=== PATIENT | male | born 1960 | race Hispanic/Latino ===

== ENCOUNTER 2020-08-08 20:08 | Inpatient (IN) | payer SELFPAY ==
--- OUTSIDE RECORDS SUMMARY | 2020-08-08 20:11 | XMS REPORT | Continuity of Care Document ---
:1960 Author Organization [facility] t Address [address] [place] [address] Care Team Providers Name Role Phone Russell Ha MD Attending Clinician Doctor Unassigned, Name Attending Clinician Unavailable Heather Vo Attending Clinician Problems This patient has no known problems. Allergies, Adverse Reactions, Alerts This patient has no known allergies or adverse reactions. Medications This patient has no known medications. Procedures This patient has no known procedures. Encounters Start End Encounter Admission Attending Care Care Encounter Source Date/Time Date/Time Type Type Clinicians Facility Department ID 2020-07-09 2020-07-09 [facility] [id number] 04:50:00 06:09:00 Hussain Swanson [id number] [place] [id number] [place] [id number] 2020-05-18 2020-05-18 Orders Doctor CARDOZA [id number] 00:00:00 00:00:00 Only UnassignedGINGER [id number] [place] [facility] [id number] 2020-03-03 2020-03-03 Orders Doctor CARDOZA [id number] 00:00:00 00:00:00 Only Unassigned, GINGER [id number] [place] [facility] [id number] 2020-01-20 2020-01-20 Emergency Javier, K RUST [id number] 10:35:00 12:49:00 Heather Swanson [id number] [place] [id number] [place] [id number] Results This patient has no known results.
[2020-08-08 20:34] LABS: Absolute Lymphocytes (CBC) 3.9 K/uL (0.7-4.9); Hematocrit 54.5 % (39.6-49.0); Lymphocytes % 39.7 % (15.3-44.8); RBC Red Blood Cell Count 5.58 M/uL (4.33-5.43)
[2020-08-08 20:35] LABS: Protime INR 0.84
[2020-08-08 20:53] LABS: ALT/SGPT 67 U/L (12-78); AST/SGOT 91 U/L (15-37); Albumin 3.5 g/dL (3.4-5.0); Alkaline Phosphatase 79 U/L (45-117); BUN Blood Urea Nitrogen 10 mg/dL (7-18); Bicarbonate 19 mmol/L (21-32); Bilirubin Direct 0.1 mg/dL (0-0.2); Bilirubin Total 0.4 mg/dL (0.2-1.0); Glucose Level 113 mg/dL (74-106); NT PRO-BNP 58 pg/mL (<125); Potassium 3.5 mmol/L (3.5-5.1); Protein, Total 8.2 g/dL (6.4-8.2); Sodium Level 137 mmol/L (136-145); Troponin (Emerg Dept Use Only) < 0.02 ng/mL (0.0-0.045)
--- NOTE | 2020-08-08 20:57 | RAD REPORT ---
EXAM DESCRIPTION: RAD - Chest Single View - 08/08/2020 8:47 pm CLINICAL HISTORY: SOB Chest pain. COMPARISON: CHEST SINGLE VIEW dated 11/29/2014; CHEST SINGLE VIEW dated 11/27/2014; CHEST SINGLE VIEW dated 01/30/2014; ABDOMEN 1 VIEW KUB dated 08/14/2012 FINDINGS: Portable technique limits examination quality. Emphysematous changes are present throughout the lungs. No definitive focal infiltrate seen. The hear t is normal in size. No acute fracture is evident.
[2020-08-08] MEDS ORDERED: METHYLPREDNISOLONE 125 MG INJ ONE (21:07)
[2020-08-08] MEDS ORDERED: LEVALBUTEROL 1.25 MG/3 ML NEB ONE ×2 (21:07→22:37)
[2020-08-08] MEDS ORDERED: IPRATROPIUM BROM 0.5MG/2.5ML ONE (21:07)
[2020-08-08] MEDS ORDERED: FAMOTIDINE 20 MG/2 ML VIAL IV ONE (21:08)
[2020-08-08] MEDS ORDERED: PIPER/TAZO/NS 3.375gm 3.375 GM/100 ML BAG ONE (21:08)
[2020-08-08] MEDS ORDERED: NA CHLORIDE 0.9% 1,000 ML ONE (21:11)
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
[2020-08-08] MEDS ORDERED: ENOXAPARIN 60 MG/0.6 ML SQ ONE (22:38)
[2020-08-08 23:33] LABS: Arterial Blood Carboxyhemoglob 2.8 % (0-1.5); Blood Gas Oxyhemoglobin 94.5 % (94-97)
--- NOTE | 2020-08-08 23:51 | P.HP ---
Certification for Inpatient Patient admitted to: Inpatient With expected LOS: >2 Midnights Patient will require the following post-hospital care: None Practitioner: I am a practitioner with admitting privileges, knowledge of patient current condition, hospital course, and medical plan of care. Services: Services provided to patient in accordance with Admission requirements found in Title 42 Section 412.3 of the Code of Federal Regulations <Mihai Washington - Last Filed: 08/08/20 23:51> Patient admitted to: Inpatient <Erick Garcia - Last Filed: 08/09/20 09:17> Patient History Date of Service: 08/08/20 Primary Care Provider: None Reason for admission: Dyspnea/hypoxia History of Present Illness: 59-year-old male with history of hypertension, gout, hepatitis-C, reported thyroid cancer/mass presents emergency department for shortness of breath. Patient reports he has been feeling short of breath over the course of the last 2 months but significantly worse since yesterday. Patient was found to be hypoxic in the low 80s on room air requiring significant amount of oxygen. Upon initial exam ED provider reported patient was not moving much air all with some mild expiratory wheezing noted. Chest x-ray significant for emphysematous changes throughout the lungs, CT PE protocol negative for central pulmonary embolism, cannot rule out small peripheral pulmonary embolism. CT abdomen pelvis negative for any acute findings. Patient reports history of lung mass, patient is poor historian, no mass noted on CT scan. Lab significant for white blood cell count 9.8, hemoglobin hematocrit mildly elevated suspect hemoconcentration renal function within normal limits, lactic acid 4.1, patient does not appear septic. ABG shows some hyperventilation. ED provider wishes to admit for suspected COPD with exacerbation. 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 -: brain hemorrhage -: heart murmur -: appendectomy -: R ear reconstruction -: Right inguinal hernia sx Psychosocial/ Personal History: Patient unemployed, lives alone - Family History Father -: Diabetes - Social History Smoking Status: Former smoker Counseled patient to stop smoking for: less than 10 minutes Alcohol use: Yes CD- Drugs: Yes Caffeine use: No Place of Residence: Home <Mihai Washington - Last Filed: 08/08/20 23:51> Date of Service: 08/09/20 Home medications list reviewed: Yes <Erick Garcia - Last Filed: 08/09/20 09:17> Allergies No Known Allergies Allergy (Unverified 08/09/20 03:59) Home Medications: Allopurinol 300 mg PO DAILY 01/30/14 Esomeprazole Mag Trihydrate [Nexium] 40 mg PO DAILY 01/30/14 Amlodipine [Norvasc*] 10 mg PO DAILY 02/19/14 Review of Systems 10-point ROS is otherwise unremarkable Respiratory: Cough, Dry, Shortness of Breath <Mihai Washington - Last Filed: 08/08/20 23:51> Physical Examination - Physical Exam General: Alert, In no apparent distress HEENT: Atraumatic, PERRLA, Mucous membr. moist/pink Neck: Supple, 2+ carotid pulse no bruit, No LAD Respiratory: Normal air movement, Diminished (Bilaterally), Crackles/rales (Left lower lobe), Other (Tachypneic, dyspnea) Cardiovascular: Regular rate/rhythm, Normal S1 S2 Capillary refill: <2 Seconds Gastrointestinal: Normal bowel sounds, No tenderness Musculoskeletal: No tenderness Integumentary: No rashes Neurological: Normal speech, Normal strength at 5/5 x4 extr, Normal tone, Normal affect - Studies Laboratory Data (last 24 hrs) 08/08/20 20:20: PT 9.6, INR 0.84 08/08/20 20:20: WBC 9.80, Hgb 18.3 H, Hct 54.5 H, Plt Count 261 08/08/20 20:20: Sodium 137, Potassium 3.5, BUN 10, Creatinine 0.84, Glucose 113 H, Magnesium 2.0, Total Bilirubin 0.4, AST 91 H, ALT 67, Alkaline Phosphatase 79 <Mihai Washington - Last Filed: 08/08/20 23:51> - Studies Laboratory Data (last 24 hrs) 08/08/20 20:20: PT 9.6, INR 0.84 08/08/20 20:20: WBC 9.80, Hgb 18.3 H, Hct 54.5 H, Plt Count 261 08/08/20 20:20: Sodium 137, Potassium 3.5, BUN 10, Creatinine 0.84, Glucose 113 H, Magnesium 2.0, Total Bilirubin 0.4, AST 91 H, ALT 67, Alkaline Phosphatase 79 <Erick Garcia - Last Filed: 08/09/20 09:17> Assessment and Plan - Plan Assessment Acute hypoxic respiratory failure likely new onset COPD with exacerbation Hypertension Gout History of hepatitis-C Thyroid mass Plan Acute hypoxic respiratory failure likely new onset COPD with exacerbation: Chest x-ray suggests emphysema changes throughout, continue with IV steroids, scheduled nebulizer treatments, IV Levaquin. Pulmonology consult in place. Titrate saturations greater than 93%. Daily room air saturations. DVT prophylaxis Lovenox 40 mg subcutaneous once daily. Appreciate further input from pulmonology. Hypertension: Obtain and continue home medications as appropriate.May need some adjustment. Gout: Obtain and continue home meds History of hepatitis-C: Appears stable this time. Thyroid mass: Patient with known thyroid mass, reports that he had a biopsy done was told his cancers, elected to have no treatment. Appears stable at this time. Discharge Plan: Home Plan to discharge in: 48 Hours - Advance Directives Does patient have a Living Will: No Does patient have a Durable POA for Healthcare: Yes - Code Status/Comfort Care Code Status Assessed: Yes (Full code) Critical Care: No Time Spent Managing Pts Care (In Minutes): 55 <Mihai Washington - Last Filed: 08/08/20 23:51> - Plan Case discussed in detail with nurse practitioner. Agree with plan of care. Please see notes for details. <Erick Garcia - Last Filed: 08/09/20 09:17>
[2020-08-08 23:59] LABS: Ferritin 32.4 ng/mL (26-388)
[2020-08-09] LABS: C-Reactive Protein < 2.90 mg/L (<3.00)
[2020-08-09] MEDS ORDERED: ACETAMINOPHEN 500 MG TAB PO PRN (00:24)
[2020-08-09] MEDS ORDERED: ONDANSETRON 4 MG/2 ML VIAL IV PRN (00:24)
[2020-08-09] MEDS ORDERED: NA CHLORIDE 0.9% 1,000 ML IV ONE (00:24)
[2020-08-09] MEDS ORDERED: NA CHLORIDE 0.9% 1,000 ML IV SCH (00:24)
[2020-08-09] MEDS ORDERED: NA CHLORIDE 0.9% 1,000 ML ONE (00:28)
[2020-08-09] MEDS: METHYLPREDNISOLONE 125 MG INJ IV SCH ×3 (01:18→16:12)
[2020-08-09 01:34] VITALS: BMI 18.3
[2020-08-09] MEDS: ALBUTEROL 2.5 MG/3 ML NEB SOL NEB SCH ×2 (01:50→08:15)
[2020-08-09] MEDS: IPRATROPIUM BROM 0.5MG/2.5ML NEB SCH ×2 (01:50→08:15)
[2020-08-09] MEDS ORDERED: Levofloxacin500mg IV 500 MG/100 ML BAG IV SCH (05:00)
[2020-08-09 05:55] LABS: Absolute Lymphocytes (CBC) 0.2 K/uL (0.7-4.9); Basophils % 0.2 % (0-1.3); Hematocrit 50.2 % (39.6-49.0); Lymphocytes % 2.5 % (15.3-44.8); MPV 8.1 fL (7.6-11.3); RBC Red Blood Cell Count 5.05 M/uL (4.33-5.43)
[2020-08-09 06:19] LABS: Magnesium 1.6 mg/dL (1.8-2.4); Thyroid Stimulating Hormone 0.277 uIU/mL (0.360-3.740); Troponin I 0.03 ng/mL (0.0-0.045)
--- NOTE | 2020-08-09 06:22 | EKG ---
Test Date: 2020-08-08 Test Time: 20:11:20 Alterations Sewer: RR MEASUREMENT RESULTS: Intervals: Rate: 120 LA: 148 QRSD: 86 QT: 322 QTc: 455 [place]: P: 75 LA: 148 QRS: 62 T: 60 INTERPRETIVE STATEMENTS: Sinus tachycardia Septal infarct, age undetermined Abnormal ECG Compared to ECG 10/25/2016 23:45:00 Myocardial infarct finding now present Sinus rhythm no longer present Electronically Signed On 08-09-20 06:21:11 CIVIL DEFENSE DIRECTOR by Luís Gross
[2020-08-09 06:39] LABS: White Blood Cell Scan OK (OK)
[2020-08-09 06:40] LABS: Blood Morphology Comment NOT SEEN (NOT SEEN); Platelet Estimate ADEQ
[2020-08-09] MEDS: ENOXAPARIN 40 MG/0.4 ML SQ SCH (07:50)
[2020-08-09] MEDS ORDERED: MAGNESIUM SULFATE 1 gm IVPB 1 GM/100 ML BAG IV ONE (09:00)
[2020-08-09] MEDS: DULERA 100/5 (MOMETASONE/FORMOTEROL) INHALER IH SCH ×2 (09:00→21:12)
--- NOTE | 2020-08-09 09:15 | P.PN ---
Subjective Date of Service: 08/09/20 Primary Care Provider: None Chief Complaint: Dyspnea/hypoxia Subjective: Improving (Patient reports improvement with treatment.) Physical Examination - Vital Signs Temperature: 98.7 F Blood Pressure: 143/77 Pulse: 79 Respirations: 18 Pulse Ox (%): 98 - Studies Laboratory Data (last 24 hrs) 08/08/20 20:20: PT 9.6, INR 0.84 08/08/20 20:20: WBC 9.80, Hgb 18.3 H, Hct 54.5 H, Plt Count 261 08/08/20 20:20: Sodium 137, Potassium 3.5, BUN 10, Creatinine 0.84, Glucose 113 H, Magnesium 2.0, Total Bilirubin 0.4, AST 91 H, ALT 67, Alkaline Phosphatase 79 Assessment & Plan Discharge Plan: Home Plan to discharge in: 48 Hours - Code Status/Comfort Care Code Status Assessed: Yes (Patient is do not resuscitate.) Physician Review Additional Text: Physical exam: Patient alert, cooperative. No acute distress noted. Heart: Regular rate and rhythm Lungs: Wheezing bilateral Abdomen: Soft nontender nondistended Neck: Slight enlargement to the left thyroid region. Extremities: Good range of motion to the upper lower extremities Impression: Dyspnea secondary to Acute hypoxic respiratory failure likely related to COPD exacerbation Hypertension Gout History of hepatitis-C Thyroid mass with possible underlying metastatic disease Plan: Dyspnea secondary to Acute hypoxic respiratory failure likely related to COPD exacerbation: Chest x-ray shows emphysematous changes. Likely underlying COPD with exacerbation. Continue IV steroids. Continue Brovana. Patient is homeless. Discontinue IV fluids. Pulmonology consulted. Patient will need to transition to affordable medication at discharge. Respiratory to continue to wean off oxygen. Advanced care directives address in detail. Patient wishes to be do not resuscitate. Patient also with history of thyroid mass with possible underlying cancer. This has been addressed in the past. Patient wishes to have no further evaluation or treatment. Anticipate improvement over the next 48 hr. Hypertension: Continue with medication. Will monitor and adjust appropriately. Gout: Obtain and restart home medication. History of hepatitis-C: Overall stable.. Thyroid mass: Patient with known thyroid mass, reports that he had a biopsy done and was told that he had cancer. Patient also reports a history of lung and kidney cancer. Will need to review CT scans. Patient wishes to have no further workup for this. He does not want any further treatment in the future. Time Spent Managing Pts Care (In Minutes): 55
[2020-08-09] MEDS ORDERED: ALBUTEROL 2.5 MG/3 ML NEB SOL NEB PRN (09:19)
[2020-08-09] MEDS ORDERED: IPRATROPIUM BROM 0.5MG/2.5ML NEB PRN (09:19)
--- NOTE | 2020-08-09 10:30 | RAD REPORT ---
EXAM DESCRIPTION: CT - Abdomen Pelvis W Contrast - 08/09/2020 6:56 am CLINICAL HISTORY: 59 years Male CHEST, ABD PAIN TECHNIQUE: Contiguous axial images obtained through the chest were obtained from the thoracic inlet to the level of the upper abdomen during the pulmonary arterial phase of intravenous contrast adminis tration. Coronal and sagittal reformatted and MIP images provided. Contiguous axial images obtained through the abdomen and pelvis following intravenous contrast admini stration. Coronal and sagittal reformatted images provided. This CT exam was performed according to our departmental dose-optimization program, which includes on e or more of the following dose reduction techniques: automated exposure control, adjustment of the m A and/or kV according to patient size, and/or use of iterative reconstruction technique. COMPARISON: No prior exams provided for comparison. FINDINGS: There is no central or upper lung pulmonary embolus. Small lower lung pulmonary emboli can not be completely excluded due to patient motion. Mild atherosclerosis without thoracic aortic aneurysm. The heart is normal in size without pericardia l effusion. Aside from mild dependent atelectasis bilaterally, the lungs are clear without consolidation, effusio n, or pneumothorax. No lymphadenopathy in the chest. The liver, biliary tree, gallbladder, pancreas, spleen, adrenal glands, kidneys, and urinary bladder are normal. There is no bowel inflammation, obstruction, free intraperitoneal air, or ascites. No acute osseous abnormality. Small fat-containing right groin hernia. IMPRESSION: No central or upper lung pulmonary infiltrates. Small lower lung emboli cannot be exclud ed due to patient motion. No acute abdominal or pelvic abnormalities. Electronically signed by: Nina Boucher MD 08/08/2020 10:07 PM BROADCAST PRODUCER Due to temporary technical issues with the PACS/Fluency reporting system, reports are being signed by the in house radiologists without review as a courtesy to insure prompt reporting. The interpreting radiologist is fully responsible for the content of the report.
--- NOTE | 2020-08-09 11:18 | RAD REPORT ---
EXAM DESCRIPTION: CT - Chest For Pe Angio - 08/09/2020 6:56 am CLINICAL HISTORY: 59 years Male CHEST, ABD PAIN TECHNIQUE: Contiguous axial images obtained through the chest were obtained from the thoracic inlet to the level of the upper abdomen during the pulmonary arterial phase of intravenous contrast adminis tration. Coronal and sagittal reformatted and MIP images provided. Contiguous axial images obtained through the abdomen and pelvis following intravenous contrast admini stration. Coronal and sagittal reformatted images provided. This CT exam was performed according to our departmental dose-optimization program, which includes on e or more of the following dose reduction techniques: automated exposure control, adjustment of the m A and/or kV according to patient size, and/or use of iterative reconstruction technique. COMPARISON: No prior exams provided for comparison. FINDINGS: There is no central or upper lung pulmonary embolus. Small lower lung pulmonary emboli can not be completely excluded due to patient motion. Mild atherosclerosis without thoracic aortic aneurysm. The heart is normal in size without pericardia l effusion. Aside from mild dependent atelectasis bilaterally, the lungs are clear without consolidation, effusio n, or pneumothorax. No lymphadenopathy in the chest. The liver, biliary tree, gallbladder, pancreas, spleen, adrenal glands, kidneys, and urinary bladder are normal. There is no bowel inflammation, obstruction, free intraperitoneal air, or ascites. No acute osseous abnormality. Small fat-containing right groin hernia. IMPRESSION: No central or upper lung pulmonary infiltrates. Small lower lung emboli cannot be exclud ed due to patient motion. No acute abdominal or pelvic abnormalities. Electronically signed by: Nina Boucher MD 08/08/2020 10:07 PM SIZE CHANGER Due to temporary technical issues with the PACS/Fluency reporting system, reports are being signed by the in house radiologists without review as a courtesy to insure prompt reporting. The interpreting radiologist is fully responsible for the content of the report.
--- NOTE | 2020-08-09 17:05 | P.CNS ---
Date of Consult: 08/09/20 Primary Care Provider: None Chief Complaint: Dyspnea/hypoxia History of Present Illness: Patient is 59 years of age homeless hypertension gout hepatitis-C presumed history of cancer became short of breath got worse for the past 2 months admitted with hypoxemia patient is an active smoker these feels a lot better since admission no prior history of COPD Allergies No Known Allergies Allergy (Unverified 08/09/20 03:59) Home Medications: Allopurinol 300 mg PO DAILY 01/30/14 Esomeprazole Mag Trihydrate [Nexium] 40 mg PO DAILY 01/30/14 Amlodipine [Norvasc*] 10 mg PO DAILY 02/19/14 - Past Medical/Surgical History Diabetic: No -: HTN -: Gout -: Hep C -: GERD -: smoker -: 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 -: brain hemorrhage -: heart murmur -: appendectomy -: R ear reconstruction -: Right inguinal hernia sx Psychosocial/ Personal History: Patient unemployed, lives alone - Family History Father Medical History: Diabetes - Social History Smoking Status: Unknown if ever smoked Alcohol use: No CD- Drugs: Yes Caffeine use: No Place of Residence: Home Review of Systems 10-point ROS is otherwise unremarkable Respiratory: Shortness of Breath Physical Examination Temp Pulse Resp BP Pulse Ox 98.5 F 82 20 147/84 H 97 08/09/20 12:00 08/09/20 12:00 08/09/20 12:00 08/09/20 12:00 08/09/20 12:00 General: Oriented x3 Neck: Supple Respiratory: Expiratory wheezes Cardiovascular: No edema, Normal S1 S2 Laboratory Data (last 24 hrs) 08/08/20 20:20: PT 9.6, INR 0.84 08/08/20 20:20: WBC 9.80, Hgb 18.3 H, Hct 54.5 H, Plt Count 261 08/08/20 20:20: Sodium 137, Potassium 3.5, BUN 10, Creatinine 0.84, Glucose 113 H, Magnesium 2.0, Total Bilirubin 0.4, AST 91 H, ALT 67, Alkaline Phosphatase 79 - Problems (1) COPD exacerbation Current Visit: Yes Status: Acute Plan: Patient is 59 years of age admitted with shortness of breath most likely he has underlying COPD exacerbation incidentally he has had also has a thyroid mass DT scan does not show any evidence of metastatic disease he does have some emphysematous changes he has improved significantly since admission saturation is satisfactory Dc IV fluids continue with bronchodilators recommend discharge on low-dose prednisone 10 b.i.d. for a week then 10 once a day in addition to a generic Advair inhaler there is no evidence of renal or lung cancer he does not qualify for home O2 follow with me in 2 week
[2020-08-09] MEDS: predniSONE 20 MG TAB PO SCH (21:00)
[2020-08-10 02:12] VITALS: O2SAT 95
[2020-08-10 05:38] LABS: Basophils % 0.2 % (0-1.3); Hematocrit 48.7 % (39.6-49.0); Lymphocytes % 5.3 % (15.3-44.8); MPV 7.7 fL (7.6-11.3); RBC Red Blood Cell Count 4.96 M/uL (4.33-5.43)
[2020-08-10 05:52] LABS: BUN Blood Urea Nitrogen 14 mg/dL (7-18); Bicarbonate 27 mmol/L (21-32); Glucose Level 124 mg/dL (74-106); Magnesium 2.2 mg/dL (1.8-2.4); Sodium Level 138 mmol/L (136-145)
[2020-08-10] MEDS ORDERED: PANTOPRAZOLE 40MG TABLET PO SCH (06:30)
[2020-08-10 08:24] VITALS: BP 121/76; TEMP 98.8
--- NOTE | 2020-08-10 08:27 | P.DS ---
Admission Date: 08/09/20 Discharge Date: 08/10/20 Primary Care Provider: None Disposition: ROUTINE DISCHARGE Discharge Condition: GOOD Reason for Admission: Dyspnea/hypoxia Consultations: Pulmonary-Dr. Bautista Procedures: COVID: Negative CT scan: COMPARISON: No prior exams provided for comparison. FINDINGS: There is no central or upper lung pulmonary embolus. Small lower lung pulmonary emboli cannot be completely excluded due to patient motion. Mild atherosclerosis without thoracic aortic aneurysm. The heart is normal in size without pericardial effusion. Aside from mild dependent atelectasis bilaterally, the lungs are clear without consolidation, effusion, or pneumothorax. No lymphadenopathy in the chest. The liver, biliary tree, gallbladder, pancreas, spleen, adrenal glands, kidneys, and urinary bladder are normal. There is no bowel inflammation, obstruction, free intraperitoneal air, or ascites. No acute osseous abnormality. Small fat-containing right groin hernia. IMPRESSION: No central or upper lung pulmonary infiltrates. Small lower lung emboli cannot be excluded due to patient motion. No acute abdominal or pelvic abnormalities. Medical problem list: Dyspnea secondary to Acute hypoxic respiratory failure likely related to COPD exacerbation Hypertension Gout GERD History of hepatitis-C Brief History of Present Illness: 59-year-old male with history of hypertension, gout, hepatitis-C, and reported thyroid cancer/mass presents emergency department for shortness of breath. Patient reports he has been feeling short of breath over the course of the last 2 months but significantly worse since yesterday. Patient was found to be hypoxic in the low 80s on room air requiring significant amount of oxygen. Upon initial exam ED provider reported patient was not moving much air all with some mild expiratory wheezing noted. Chest x-ray significant for emphysematous changes throughout the lungs, CT PE protocol negative for central pulmonary embolism, cannot rule out small peripheral pulmonary embolism. CT abdomen pelvis negative for any acute findings. Patient reports history of lung mass, patient is poor historian, no mass noted on CT scan. Lab significant for white blood cell count 9.8, hemoglobin hematocrit mildly elevated suspect hemoconcentration renal function within normal limits, lactic acid 4.1, patient does not appear septic. ABG shows some hyperventilation. Patient admitted for further evaluation and treatment Hospital Course: Patient presented with dyspnea secondary to acute hypoxia respiratory failure related to COPD exacerbation. Patient was admitted for treatment. Patient responded well to IV steroids and COPD treatment. Patient seen and evaluated by pulmonology. Patient reports history of possible underlying cancer. CT scan did not reveal any evidence of this. Advanced directives address in detail with the patient. Patient wishes to be do not resuscitate. Patient desires no further workup for possible cancers. At discharge patient without significant chest pain, shortness of breath. Patient remained stable on room-air saturations. Patient is homeless. At discharge patient will continue with prednisone 20 mg 1 pill twice daily for 7 days then 1 pill once daily for 7 days. The patient will also be started on Airduo 1 puffs twice daily and Pro air 2 puffs 3 times a day as needed for shortness of breath. Recommend to establish care with a local PCP in the area to continue his care. Will also recommend to follow up with pulmonology as an outpatient to further monitor and address. Patient with hypertension. This has remained stable. At discharge patient will continue with current medication-Norvasc 10 mg daily. Recommend to maintain blood pressure less than 130/80. Further adjustment can be done by his PCP. Patient with history of gout. At discharge patient will continue with allopurinol 300 mg daily. Patient reports history of hepatitis-C. This appears stable. No lab to confirm this. This can be further evaluated as an outpatient. Patient reports history of thyroid mass an underlying cancer. CT scan did not reveal any underlying cancer in the lung, liver, or kidney. On exam no masses identified. Patient does not desire any further evaluation or possible future treatment if identified. This can be further monitored by his PCP. Patient with GERD. At discharge patient will continue with Nexium daily. Vital Signs/Physical Exam: Temp Pulse Resp BP Pulse Ox 98.8 F 65 15 121/76 97 08/10/20 08:00 08/10/20 08:00 08/10/20 08:00 08/10/20 08:00 08/10/20 08:00 General: Alert, In no apparent distress, Oriented x3, Cooperative HEENT: Atraumatic Neck: Supple Respiratory: Clear to auscultation bilaterally, Normal air movement Cardiovascular: Normal pulses, Regular rate/rhythm Gastrointestinal: Normal bowel sounds, Soft and benign, Non-distended, No tenderness, No masses, No rebound, No guarding Musculoskeletal: No erythema, No tenderness, No warmth Neurological: Normal speech, Normal strength at 5/5 x4 extr, Normal tone, Normal affect Laboratory Data at Discharge: WBC 17.90 K/uL (4.3-10.9) H D 08/10/20 05:20 Hgb 16.2 g/dL (13.6-17.9) 08/10/20 05:20 Hct 48.7 % (39.6-49.0) 08/10/20 05:20 Plt Count 205 K/uL (152-406) 08/10/20 05:20 PT 9.6 SECONDS (9.5-12.5) 08/08/20 20:20 INR 0.84 08/08/20 20:20 Sodium 138 mmol/L (136-145) 08/10/20 05:20 Potassium 4.0 mmol/L (3.5-5.1) 08/10/20 05:20 BUN 14 mg/dL (7-18) 08/10/20 05:20 Creatinine 0.76 mg/dL (0.55-1.3) 08/10/20 05:20 Glucose 124 mg/dL (74-106) H 08/10/20 05:20 Magnesium 2.2 mg/dL (1.8-2.4) D 08/10/20 05:20 Total Bilirubin 0.4 mg/dL (0.2-1.0) 08/08/20 20:20 AST 91 U/L (15-37) H 08/08/20 20:20 ALT 67 U/L (12-78) 08/08/20 20:20 Alkaline Phosphatase 79 U/L (45-117) 08/08/20 20:20 Troponin I 0.02 ng/mL (0.0-0.045) 08/09/20 11:55 Triglycerides 29 mg/dL (<150) 08/09/20 05:44 Cholesterol 121 mg/dL (<200) 08/09/20 05:44 HDL Cholesterol 76 mg/dL (40-60) H 08/09/20 05:44 Cholesterol/HDL Ratio 1.59 08/09/20 05:44 Home Medications: Albuterol Sulfate [Proair Hfa] 2 puff IH TID PRN #1 hfa.aer.ad 08/10/20 Allopurinol 300 mg PO DAILY #30 08/10/20 Amlodipine [Norvasc*] 10 mg PO DAILY #30 tab 08/10/20 Esomeprazole Mag Trihydrate [Nexium] 40 mg PO DAILY #30 08/10/20 Fluticasone Propion/Salmeterol [Airduo Digihaler 113-14 Mcg] 1 each IH BID #1 aer.pw.bas 08/10/20 predniSONE [Prednisone*] 20 mg PO SEECOM #21 tab 08/10/20 New Medications: Fluticasone Propion/Salmeterol [Airduo Digihaler 113-14 Mcg] 1 each IH BID #1 aer.pw.bas Allopurinol 300 mg PO DAILY #30 Esomeprazole Mag Trihydrate [Nexium] 40 mg PO DAILY #30 Amlodipine [Norvasc*] 10 mg PO DAILY #30 tab predniSONE [Prednisone*] 20 mg PO SEECOM #21 tab Albuterol Sulfate [Proair Hfa] 2 puff IH TID PRN #1 hfa.aer.ad PRN Reason: Shortness Of Breath Physician Discharge Instructions: Patient presented with dyspnea secondary to acute hypoxia respiratory failure related to COPD exacerbation. Patient was admitted for treatment. Patient responded well to IV steroids and COPD treatment. Patient seen and evaluated by pulmonology. Patient reports history of possible underlying cancer. CT scan did not reveal any evidence of this. Advanced directives address in detail with the patient. Patient wishes to be do not resuscitate. Patient desires no further workup for possible cancers. At discharge patient without significant chest pain, shortness of breath. Patient remained stable on room-air saturations. Patient is homeless. At discharge patient will continue with prednisone 20 mg 1 pill twice daily for 7 days then 1 pill once daily for 7 days. The patient will also be started on Airduo 1 puffs twice daily and Pro air 2 puffs 3 times a day as needed for shortness of breath. Recommend to establish care with a local PCP in the area to continue his care. Will also recommend to follow up with pulmonology as an outpatient to further monitor and address. Patient with hypertension. This has remained stable. At discharge patient will continue with current medication-Norvasc 10 mg daily. Recommend to maintain blood pressure less than 130/80. Further adjustment can be done by his PCP. Patient with history of gout. At discharge patient will continue with allopurinol 300 mg daily. Patient reports history of hepatitis-C. This appears stable. No lab to confirm this. This can be further evaluated as an outpatient. Patient reports history of thyroid mass an underlying cancer. CT scan did not reveal any underlying cancer in the lung, liver, or kidney. On exam no masses identified. Patient does not desire any further evaluation or possible future treatment if identified. This can be further monitored by his PCP. Patient with GERD. At discharge patient will continue with Nexium daily. Diet: AHA Activity: Ad nam Followup: Unknown,U [Primary Care Provider] - Time spent managing pt's care (in minutes): 55
[2020-08-10 08:29] LABS: Blood Morphology Comment NOT SEEN (NOT SEEN); Platelet Estimate ADEQ; White Blood Cell Scan OK (OK)
--- NOTE | 2020-08-10 08:41 | RAD REPORT ---
EXAM DESCRIPTION: RAD - Chest Pa And Lat (2 Views) - 08/10/2020 7:30 am CLINICAL HISTORY: follow up COPD Chest pain. COMPARISON: Chest Single View dated 08/08/2020; CHEST SINGLE VIEW dated 11/29/2014; CHEST SINGLE VIEW d ated 11/27/2014; CHEST SINGLE VIEW dated 01/30/2014; Chest For Pe Angio dated 08/08/2020 FINDINGS: Emphysematous changes are present throughout the lungs. No significant focal infiltrate is seen. The heart is normal in size. No displaced fractures.
[2020-08-10] MEDS ORDERED: allopurinoL 300 MG TAB PO SCH (09:00)
[2020-08-10] MEDS: ENOXAPARIN 40 MG/0.4 ML SQ SCH (09:00)
[2020-08-10] MEDS ORDERED: THIAMINE HCL 100 MG TABLET PO SCH (09:00)
[2020-08-10] MEDS: DULERA 100/5 (MOMETASONE/FORMOTEROL) INHALER IH SCH (09:00)
[2020-08-10] MEDS ORDERED: FOLIC ACID 1 MG TABLET PO SCH (09:00)
[2020-08-10] MEDS ORDERED: AMLODIPINE 10 MG TAB PO SCH (09:00)
[2020-08-10] MEDS: predniSONE 20 MG TAB PO SCH (09:27)
== END 2020-08-10 09:45 | disposition home or self-care (01) | DRG 190 ==
LOC: ER 20:08 → 2ND 08-09 00:17
PROVIDERS: ADMIT Family Medicine; ATTEND Family Medicine
DX: J44.1 Chronic obstructive pulmonary disease with (acute) exacerbation (principal); J96.01 Acute respiratory failure with hypoxia; K21.9 Gastro-esophageal reflux disease without esophagitis; M10.9 Gout, unspecified; E07.9 Disorder of thyroid, unspecified; I10 Essential (primary) hypertension; Z85.850 Personal history of malignant neoplasm of thyroid; Z79.899 Other long term (current) drug therapy; Z90.49 Acquired absence of other specified parts of digestive tract; Z56.0 Unemployment, unspecified; Z87.891 Personal history of nicotine dependence; Z79.52 Long term (current) use of systemic steroids; Z66 Do not resuscitate; Z59.0 Homelessness; Z20.822 Contact with and (suspected) exposure to COVID-19
CPT/HCPCS: 36415; 71045; 71046; 71275; 74177; 80048; 80061; 80076; 82728; 82805; 83605; 83735; 83880; 84145; 84439; 84443; 84484; 85025; 85610; 86140; 87040; 87070; 87205; 93005; 94640; 94760; 96365; 96372; 96375; 99285; J1650; J2543; J2930; J3475; J7030; J7512; J7606; Q9967; U0003

== ENCOUNTER 2020-09-15 13:45 | Emergency (ER) | payer SELFPAY ==
--- OUTSIDE RECORDS SUMMARY | 2020-09-15 13:47 | XMS REPORT | Continuity of Care Document ---
:[address] [facility] t Address [address] [place] [address] Care Team Providers Name Role Phone Mookie MICHAELS Attending Clinician Russell Ha MD Attending Clinician Doctor Unassigned, [...] Date/Time Type Type Clinicians Facility Department ID 2020-08-24 2020-08-24 Emergency Mookie [facility] [id number] 10:47:00 12:55:00 Dee Swanson [id number] [place] [id number] [place] [id number] 2020-07-09 2020-07-09 Emergency Leland [place]ON[place] [id number] 04:50:00 06:09:00 Hussain Swanson [id number] [place] [id number] [place] [id number] 2020-05-18 2020-05-18 Orders Doctor CARDOZA [id number] 00:00:00 00:00:00 Only Unassigned, GINGER [id number] [place] [facility] [id number] 2020-03-03 2020-03-03 Orders Doctor NANI [id number] 00:00:00 00:00:00 Only Unassigned, GINGER [id number] [place] [facility] [id number] 2020-01-20 2020-01-20 Emergency JavierMajo [facility] [id number] 10:35:00 12:49:00 Heather Swanson [id number] [place] [id number] [place] [id number] [id number] Results This patient has no known results.
[2020-09-15 14:48] LABS: Absolute Lymphocytes (CBC) 3.4 K/uL (0.7-4.9); Basophils % 0.4 % (0-1.3); Hematocrit 52.8 % (39.6-49.0); Lymphocytes % 34.5 % (15.3-44.8); MPV 7.8 fL (7.6-11.3); RBC Red Blood Cell Count 5.41 M/uL (4.33-5.43)
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
--- NOTE | 2020-09-15 15:31 | RAD REPORT ---
EXAM DESCRIPTION: RAD - Shoulder Right 2 View - 09/15/2020 2:33 pm CLINICAL HISTORY: PAIN COMPARISON: No comparisons FINDINGS: Subcoracoid dislocation is present involving the humeral head.
[2020-09-15] MEDS ORDERED: propofoL 1,000 MG/100 ML VIAL IV ONE (15:37)
[2020-09-15] MEDS ORDERED: NA CHLORIDE 0.9% 1,000 ML ONE (15:38)
[2020-09-15 16:15] LABS: BUN Blood Urea Nitrogen 10 mg/dL (7-18); Bicarbonate 25 mmol/L (21-32); Glucose Level 131 mg/dL (74-106); Potassium 3.8 mmol/L (3.5-5.1); Sodium Level 136 mmol/L (136-145)
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
--- NOTE | 2020-09-15 16:55 | RAD REPORT ---
EXAM DESCRIPTION: RAD - Shoulder Right 2 View - 09/15/2020 4:16 pm CLINICAL HISTORY: Post reduction;Pain COMPARISON: Shoulder Right 2 View dated 09/15/2020 FINDINGS: The previously noted right shoulder dislocation has been reduced. No fracture identified.
[2020-09-16 04:02] VITALS: TEMP 97.8
[2020-09-16 04:07] VITALS: BP 131/81; O2SAT 96
== END 2020-09-15 17:47 | disposition home or self-care (01) ==
LOC: ER 13:45
PROC: 0RSJXZZ Reposition Right Shoulder Joint, External Approach (ICD-10-PCS; principal; 2020-09-15)
DX: S43.004A Unspecified dislocation of right shoulder joint, initial encounter (principal); S05.31XA Ocular laceration without prolapse or loss of intraocular tissue, right eye, initial encounter; S01.511A Laceration without foreign body of lip, initial encounter; Y04.2XXA Assault by strike against or bumped into by another person, initial encounter; Y93.9 Activity, unspecified; Y92.9 Unspecified place or not applicable; Z85.850 Personal history of malignant neoplasm of thyroid; I10 Essential (primary) hypertension
CPT/HCPCS: 36415; 70450; 72125; 80048; 85025; 96374; 99285; G0390; J2704; J7030

== ENCOUNTER 2020-11-25 17:27 | Inpatient (IN) | payer SELFPAY ==
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
[2020-11-25 17:56] LABS: Absolute Lymphocytes (CBC) 2.1 K/uL (0.7-4.9); Basophils % 0.7 % (0-1.3); Hematocrit 47.8 % (39.6-49.0); Lymphocytes % 32.5 % (15.3-44.8); MPV 7.8 fL (7.6-11.3); RBC Red Blood Cell Count 4.92 M/uL (4.33-5.43)
[2020-11-25 18:12] LABS: Protime INR 0.87
[2020-11-25 18:14] LABS: ALT/SGPT 104 U/L (12-78); AST/SGOT 182 U/L (15-37); Albumin 3.2 g/dL (3.4-5.0); Alkaline Phosphatase 86 U/L (45-117); BUN Blood Urea Nitrogen 6 mg/dL (7-18); Bicarbonate 21 mmol/L (21-32); Bilirubin Direct 0.4 mg/dL (0-0.2); Bilirubin Total 0.8 mg/dL (0.2-1.0); CKMB Creatine Kinase MB 3.9 ng/mL (1.0-3.6); Creatine Phosphokinase 131 U/L (39-308); Glucose Level 169 mg/dL (74-106); Lipase 483 U/L (73-393); Magnesium 2.1 mg/dL (1.8-2.4); NT PRO-BNP 121 pg/mL (<125); Potassium 3.2 mmol/L (3.5-5.1); Protein, Total 7.7 g/dL (6.4-8.2); Sodium Level 135 mmol/L (136-145); Troponin (Emerg Dept Use Only) < 0.02 ng/mL (0.0-0.045)
--- NOTE | 2020-11-25 18:18 | RAD REPORT ---
EXAM DESCRIPTION: RAD - Chest Single View - 11/25/2020 6:02 pm CLINICAL HISTORY: CONGESTION, COPD COMPARISON: Two view chest August 10, 2020 TECHNIQUE: AP portable chest image was obtained 11/25/2020 6:02 pm . FINDINGS: Fibrotic lung pattern is present matching comparison. Severity of chronic interstitial julian g disease could mask mild edema or infiltrate. No peripheral mass or consolidation. Heart and vasculature are normal. No measurable pleural effusion and no pneumothorax. No acute bony abnormality seen. No acute aortic findings suspected. IMPRESSION: Fibrotic lung changes are present matching comparison. Severity of chronic disease could mask early or mild interstitial edema/infiltrate.
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
[2020-11-25] MEDS ORDERED: AZITHROMYCIN IV 500 MG in NA CHLORIDE 0.9% 250 ML IVPB ONE (19:00)
--- NOTE | 2020-11-25 19:30 | RAD REPORT ---
EXAM DESCRIPTION: CT - Abdomen Pelvis W Contrast - 11/25/2020 7:18 pm CLINICAL HISTORY: ABD PAIN COMPARISON: Abdomen Pelvis W Contrast dated 08/08/2020; Chest For Pe Angio dated 08/08/2020 TECHNIQUE: Biphasic, helical CT imaging of the abdomen and pelvis was performed following 100 ml non -ionic IV contrast. No oral contrast administered. All CT scans are performed using dose optimization technique as appropriate and may include automated exposure control or mA/KV adjustment according to patient size. FINDINGS: No suspicious findings in the lung bases. Mildly enlarged liver shows diffuse fatty infiltration of the parenchyma. No focal liver lesion. No p ortal vein abnormality seen. Spleen and pancreas show no suspicious findings. Gallbladder and biliary tree are also without suspicious finding. Gallstones can be occult on CT imaging. Symmetric renal function is seen with no hydronephrosis or suspicious renal mass. A 14 millimeter derrick ogeneous thin-walled exophytic mass posterior mid left kidney is almost certainly a cyst. Attenuation value of 28 Hounsfield units is higher than simple cyst fluid. This may have a component protein con taining fluid. No obstructing calculi seen. Phleboliths are seen in the pelvis. No pyelonephritis or acute parenchymal process. No bladder abnormalities. No adrenal abnormalities. No dilated bowel loops or bowel wall thickening. No appendicitis or other acute GI process identifiab le. No free air, free fluid or inflammatory stranding. No hernia, mass or bulky lymphadenopathy. No suspicious bony findings. Facet joint degenerative changes are present. IMPRESSION: Contrast enhanced CT abdomen and pelvis showing no acute or emergent finding.
[2020-11-25] MEDS ORDERED: THIAMINE 200 MG/2 ML INJ ONE (20:30)
[2020-11-25] MEDS ORDERED: FAMOTIDINE 20 MG/2 ML VIAL IV ONE (20:31)
[2020-11-25] MEDS ORDERED: MORPHINE 4 MG/ML SYR ONE (20:31)
[2020-11-25] MEDS ORDERED: NA CHLORIDE 0.9% 1,000 ML ONE (20:31)
[2020-11-25] MEDS ORDERED: MULTIVITAMINS 10 ML VIAL (INJ) IV ONE (20:32)
[2020-11-25] MEDS ORDERED: FOLIC ACID 5 MG/ML VIAL ONE (20:33)
--- NOTE | 2020-11-25 20:34 | RAD REPORT ---
EXAM DESCRIPTION: US - Abdomen Exam Limited - 11/25/2020 8:06 pm CLINICAL HISTORY: biliary evaluationabdominal pain COMPARISON: Abdomen Pelvis W Contrast dated 11/25/2020 FINDINGS: No gallstones, sludge or other abnormalities within the gallbladder lumen. There is no wal l thickening or pericholecystic fluid. No common duct stone or biliary tree dilatation identified. IMPRESSION: Normal gallbladder and biliary tree ultrasound.
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
[2020-11-25 21:43] LABS: C-Reactive Protein 13.8 mg/L (<3.00)
[2020-11-25] MEDS: INSULIN -REGULAR HUMAN 50 UNIT/0.5 ML ML SQ SCH (22:41)
[2020-11-25] MEDS ORDERED: BENZONATATE 100 MG CAP PO PRN (22:41)
[2020-11-25] MEDS ORDERED: LORazepam 2 MG/ML VIAL IV PRN (22:41)
[2020-11-25] MEDS ORDERED: ONDANSETRON 4 MG/2 ML VIAL IV PRN (22:41)
[2020-11-25] MEDS ORDERED: HYDRALAZINE HCL 20 MG/ML VIAL IV PRN (22:41)
[2020-11-25] MEDS ORDERED: ACETAMINOPHEN 500 MG TAB PO PRN (22:41)
[2020-11-25] MEDS: KCL 20 MEQ/100 mL IVPB 20 MEQ/100 ML BAG IV SCH (23:30)
[2020-11-25] MEDS: NA CHLORIDE 0.9% 1,000 ML IV SCH (23:30)
[2020-11-25 23:54] LABS: NT PRO-BNP 107 pg/mL (<125)
[2020-11-26 00:23] VITALS: BMI 16.8
[2020-11-26] MEDS: KCL 20 MEQ/100 mL IVPB 20 MEQ/100 ML BAG IV SCH (00:42)
[2020-11-26 00:44] LABS: Folic Acid, (Folate) > 20.0 ng/mL (3.1-17.5)
[2020-11-26 01:13] LABS: Urine Appearance CLEAR (Clear); Urine Bilirubin NEGATIVE (Negative); Urine Blood NEGATIVE (Negative); Urine Color YELLOW (Yellow); Urine Glucose TRACE (Negative); Urine Protein TRACE (Negative); Urine Specific Gravity 1.015 (1.005-1.030); Urine pH 5.5 (5.0-7.0)
[2020-11-26 01:21] LABS: Barbiturates NEGATIVE (NEGATIVE); Benzodiazepines NEGATIVE (NEGATIVE); Cocaine NEGATIVE (NEGATIVE); METHAMPHETAM NEGATIVE (NEGATIVE); Methadone NEGATIVE (NEGATIVE); Opiates NEGATIVE (NEGATIVE); Phencyclidine NEGATIVE (NEGATIVE); THC Cannibis NEGATIVE (NEGATIVE)
[2020-11-26 01:25] LABS: Urine Microscopic Reflex NO UMIC
[2020-11-26] MEDS: ALBUTEROL 2.5 MG/3 ML NEB SOL NEB SCH ×3 (02:25→13:50)
[2020-11-26] MEDS: IPRATROPIUM BROM 0.5MG/2.5ML NEB SCH ×3 (02:25→13:50)
[2020-11-26] MEDS: MORPHINE 2 MG/ML SYR IV PRN ×2 (02:27→08:48)
[2020-11-26 06:19] LABS: Absolute Lymphocytes (CBC) 0.3 K/uL (0.7-4.9); Basophils % 0.2 % (0-1.3); Hematocrit 44.9 % (39.6-49.0); Lymphocytes % 5.4 % (15.3-44.8); MPV 7.5 fL (7.6-11.3); RBC Red Blood Cell Count 4.57 M/uL (4.33-5.43)
[2020-11-26 06:47] LABS: Anisocytosis 1+; Blood Morphology Comment NOTED (NOT SEEN); Platelet Estimate ADEQ; Target Cells FEW; White Blood Cell Scan OK (OK)
[2020-11-26 06:49] LABS: ALT/SGPT 86 U/L (12-78); AST/SGOT 96 U/L (15-37); Albumin 2.9 g/dL (3.4-5.0); Alkaline Phosphatase 76 U/L (45-117); BUN Blood Urea Nitrogen 6 mg/dL (7-18); Bicarbonate 27 mmol/L (21-32); Bilirubin Total 0.7 mg/dL (0.2-1.0); Glucose Level 187 mg/dL (74-106); Magnesium 1.7 mg/dL (1.8-2.4); Phosphorus 2.1 mg/dL (2.5-4.9); Potassium 4.3 mmol/L (3.5-5.1); Protein, Total 7.1 g/dL (6.4-8.2); Sodium Level 137 mmol/L (136-145); Thyroid Stimulating Hormone 0.356 uIU/mL (0.360-3.740)
[2020-11-26] MEDS: INSULIN -REGULAR HUMAN 50 UNIT/0.5 ML ML SQ SCH ×2 (07:30→11:30)
[2020-11-26] MEDS: NA CHLORIDE 0.9% 1,000 ML IV SCH (08:48)
[2020-11-26] MEDS: POTASS/SODIUM PHOSPHATE 1 PKT POWD.PACK PO SCH ×3 (08:50→11:27)
[2020-11-26] MEDS ORDERED: predniSONE 20 MG TAB PO SCH (09:00)
[2020-11-26] MEDS ORDERED: Levofloxacin 750mg IV 750 MG/150 ML BAG IV SCH (09:00)
[2020-11-26] MEDS ORDERED: MAGNESIUM SULFATE 1 gm IVPB 1 GM/100 ML BAG IV ONE (09:00)
[2020-11-26] MEDS ORDERED: ENOXAPARIN 40 MG/0.4 ML SQ SCH (09:00)
--- NOTE | 2020-11-26 09:45 | EKG ---
Test Date: 2020-11-25 Test Time: 18:13:50 Digital Marketer: ANGELICA MEASUREMENT RESULTS: Intervals: Rate: 104 WV: 150 QRSD: 92 QT: 330 QTc: 433 [place]: P: 74 WV: 150 QRS: 88 T: 32 INTERPRETIVE STATEMENTS: Sinus tachycardia Otherwise normal ECG Compared to ECG 08/08/2020 20:11:20 Myocardial infarct finding no longer present Electronically Signed On 11-26-20 09:43:35 CDT by Luís Gross
[2020-11-26 10:20] VITALS: O2SAT 98
--- NOTE | 2020-11-26 11:19 | P.DS ---
Admission Date: 11/25/20 Discharge Date: 11/26/20 Disposition: ROUTINE DISCHARGE Discharge Condition: FAIR Reason for Admission: copd exacerbation - Problems (1) Alcohol abuse Current Visit: Yes Status: Chronic (2) Gout Current Visit: Yes Status: Chronic Qualifiers: Gout site: unspecified site Gout etiology: unspecified cause Chronicity: unspecified Qualified Code(s): M10.9 - Gout, unspecified (3) HTN (hypertension) Current Visit: Yes Status: Chronic Qualifiers: Hypertension type: essential hypertension Qualified Code(s): I10 - Essential (primary) hypertension (4) Hepatitis C Current Visit: Yes Status: Chronic Qualifiers: Viral hepatitis chronicity: unspecified Hepatic coma status: without hepatic coma Qualified Code(s): B19.20 - Unspecified viral hepatitis C without hepatic coma (5) COPD exacerbation Current Visit: No Status: Acute Brief History of Present Illness: 60-year-old gentleman with a history of COPD, hypertension, alcohol abuse, gout, hepatitis-C and thyroid cancer presented to the emergency department with a complaint of shortness of breath, cough with greenish sputum production and wheezing. He also had an episode of nausea and vomiting. CT abdomen and pelvis done did not show any acute disease. Chest x-ray done in the emergency department shows no acute infiltrate. Patient diagnosis COPD exacerbation and admitted for further management. Hospital Course: Patient admitted to the medical floor and treated for COPD exacerbation and oral prednisone and scheduled bronchodilators. Patient's symptoms significantly improved with treatment. He did not require oxygen. He also tolerated his meals. Patient has clinically improved and deemed stable for discharge. He is given a prescription for albuterol inhaler, fluticasone salmeterol inhaler which are cheaper and short course oral prednisone therapy. Patient had advised to stop drinking alcohol. Vital Signs/Physical Exam: Temp Pulse Resp BP Pulse Ox 97.9 F 85 18 132/93 H 97 11/26/20 08:00 11/26/20 08:00 11/26/20 09:18 11/26/20 08:00 11/26/20 09:18 General: Alert, In no apparent distress, Oriented x3 HEENT: Mucous membr. moist/pink Neck: JVD not distended Respiratory: Clear to auscultation bilaterally, Normal air movement Cardiovascular: No edema, Regular rate/rhythm, Normal S1 S2 Gastrointestinal: Normal bowel sounds, Soft and benign, Non-distended, No tenderness Musculoskeletal: No swelling Integumentary: No rashes Neurological: Normal strength at 5/5 x4 extr Laboratory Data at Discharge: WBC 6.00 K/uL (4.3-10.9) 11/26/20 06:01 Hgb 15.4 g/dL (13.6-17.9) 11/26/20 06:01 Hct 44.9 % (39.6-49.0) 11/26/20 06:01 Plt Count 243 K/uL (152-406) 11/26/20 06:01 PT 10.0 SECONDS (9.5-12.5) 11/25/20 17:44 INR 0.87 11/25/20 17:44 APTT 29.3 SECONDS (24.3-36.9) 11/25/20 17:44 Sodium 137 mmol/L (136-145) 11/26/20 06:01 Potassium 4.3 mmol/L (3.5-5.1) 11/26/20 06:01 BUN 6 mg/dL (7-18) L 11/26/20 06:01 Creatinine 0.71 mg/dL (0.55-1.3) 11/26/20 06:01 Glucose 187 mg/dL (74-106) H 11/26/20 06:01 Phosphorus 2.1 mg/dL (2.5-4.9) L 11/26/20 06:01 Magnesium 1.7 mg/dL (1.8-2.4) L 11/26/20 06:01 Total Bilirubin 0.7 mg/dL (0.2-1.0) 11/26/20 06:01 AST 96 U/L (15-37) H 11/26/20 06:01 ALT 86 U/L (12-78) H 11/26/20 06:01 Alkaline Phosphatase 76 U/L (45-117) 11/26/20 06:01 Triglycerides 72 mg/dL (<150) 11/25/20 17:44 Cholesterol 150 mg/dL (<200) 11/25/20 17:44 HDL Cholesterol 114 mg/dL (40-60) H 11/25/20 17:44 Cholesterol/HDL Ratio 1.32 11/25/20 17:44 Amylase 102 U/L (25-115) 11/25/20 17:44 Lipase 483 U/L (73-393) H 11/25/20 17:44 Home Medications: Albuterol Inhaler [Ventolin Inhaler*] 2 puff IH Q6H PRN #1 inhaler 11/26/20 Fluticasone/Salmeterol [Fluticasone-Salmeterol 113-14] 1 each IH BID #1 inhaler 11/26/20 predniSONE [Prednisone*] 20 mg PO BID #10 tab 11/26/20 New Medications: Fluticasone/Salmeterol [Fluticasone-Salmeterol 113-14] 1 each IH BID #1 inhaler predniSONE [Prednisone*] 20 mg PO BID #10 tab Albuterol Inhaler [Ventolin Inhaler*] 2 puff IH Q6H PRN #1 inhaler PRN Reason: Shortness Of Breath Diet: AHA Activity: Ad nam Followup: Unknown,U [Primary Care Provider] - 1-2 Weeks Time spent managing pt's care (in minutes): 34
[2020-11-26 12:33] VITALS: BP 152/79; TEMP 98.9
[2020-11-29 12:15] LABS: Hepatitis C Virus RNA (PCR)log 6.39 log IU/mL
== END 2020-11-26 14:23 | disposition home or self-care (01) | DRG 191 ==
LOC: ER 17:27 → ERHOLD 20:31 → 2ND 22:20
PROVIDERS: ADMIT Internal Medicine; ATTEND Internal Medicine
DX: J44.1 Chronic obstructive pulmonary disease with (acute) exacerbation (principal); Z68.1 Body mass index [BMI] 19.9 or less, adult; R64 Cachexia; K21.9 Gastro-esophageal reflux disease without esophagitis; M10.9 Gout, unspecified; F10.10 Alcohol abuse, uncomplicated; I10 Essential (primary) hypertension; C73 Malignant neoplasm of thyroid gland; B18.2 Chronic viral hepatitis C; H54.62 Unqualified visual loss, left eye, normal vision right eye; Z85.850 Personal history of malignant neoplasm of thyroid; Z66 Do not resuscitate; Z90.49 Acquired absence of other specified parts of digestive tract; Z79.899 Other long term (current) drug therapy; Z79.52 Long term (current) use of systemic steroids; Z56.0 Unemployment, unspecified; Z60.2 Problems related to living alone; Z87.891 Personal history of nicotine dependence; Z20.822 Contact with and (suspected) exposure to COVID-19
CPT/HCPCS: 36415; 71045; 74177; 76705; 80048; 80053; 80061; 80076; 80307; 80320; 81003; 82150; 82550; 82553; 82607; 82746; 82947; 83036; 83690; 83735; 83880; 84100; 84425; 84439; 84443; 84484; 85025; 85610; 85730; 86140; 87040; 87070; 87205; 87520; 87522; 93005; 94760; 99285; J0456; J1650; J2270; J2405; J3411; J3475; J3480; J7030; J7050; J7512; Q9967; U0003

== ENCOUNTER 2021-03-08 23:22 | Inpatient (IN) | payer SELFPAY ==
[2021-03-09 00:02] LABS: Absolute Lymphocytes (CBC) 2.8 K/uL (0.7-4.9); Basophils % 1.1 % (0-1.3); Hematocrit 47.4 % (39.6-49.0); Lymphocytes % 38.9 % (15.3-44.8); MPV 7.4 fL (7.6-11.3); RBC Red Blood Cell Count 4.74 M/uL (4.33-5.43)
[2021-03-09 00:06] LABS: Protime INR 0.88
[2021-03-09] MEDS ORDERED: IPRATROPIUM BROM 0.5MG/2.5ML ONE ×2 (00:19→03:10)
[2021-03-09] MEDS ORDERED: METHYLPREDNISOLONE 125 MG INJ ONE (00:19)
[2021-03-09] MEDS ORDERED: ALBUTEROL 2.5 MG/3 ML NEB SOL ONE ×2 (00:19→03:10)
--- NOTE | 2021-03-09 00:34 | ER ---
Nurse's Notes [facility] Name: Bryan Hardin Age: 60 yrs Sex: Male : 1960 Arrival Date: 03/08/2021 Time: 23:23 Bed 7 Private MD: Diagnosis: COPD/ Chronic obstructive pulmonary disease with (acute) exacerbation Presentation: 03/08 23:26 Chief complaint: EMS states: Reports pt complaining of SOB that started two hours ago. ea Pt placed on O2 at 3L per n/c. Coronavirus screen: difficulty breathing, Client presents with at least one sign or symptom that may indicate coronavirus-19. Standard/surgical mask placed on the client. Ebola Screen: No symptoms or risks identified at this time. Initial Sepsis Screen: Does the patient meet any 2 criteria? No. Patient's initial sepsis screen is negative. Does the patient have a suspected source of infection? No. Patient's initial sepsis screen is negative. 23:26 Method Of Arrival: EMS: [facility] ea 23:30 Risk Assessment: Do you want to hurt yourself or someone else? Patient reports no ea desire to harm self or others. Onset of symptoms was March 08, 2021. 23:30 Acuity: ANTONINO 3 ea Historical: - Allergies: 23:30 NKA; ea - Home Meds: 23:30 Prilosec Oral [Active]; Norvasc Oral [Active]; Allopurinol Oral [Active]; ea - PMHx: 23:30 THYROID CANCER; Lung mass; Kidney Mass; Hypertension; Gout; GERD; ea - Immunization history:: Adult Immunizations up to date, Client reports having NOT received the Covid vaccine. - Social history:: Smoking status: Patient reports the use of cigarette tobacco products, denies chronic smoking, but will smoke occasionally. Screenin:25 Abuse screen: Denies threats or abuse. Nutritional screening: No deficits noted. ea Tuberculosis screening: No symptoms or risk factors identified. Fall Risk None identified. Assessment: 23:31 General: Appears uncomfortable, Behavior is appropriate for age. Pain: Denies pain. ea Neuro: Level of Consciousness is awake, alert, obeys commands, Oriented to person, place, time. Cardiovascular: Patient's skin is warm and dry. Respiratory: Airway is patent Respiratory effort is labored, Respiratory pattern is tachypnea Breath sounds are clear bilaterally. Derm: Skin is dry, Skin is normal, Skin temperature is warm. Vital Signs: 23:26 BP 155 / 97; Pulse 90; Resp 24; Temp 97.7; Pulse Ox 92% on R/A; Weight 45.36 kg; Height ea 6 ft. 1 in. (185.42 cm); 03/09 01:45 BP 147 / 81; Pulse 80; Resp 20; Pulse Ox 95% on 3 lpm NC; wg 03:06 BP 159 / 89; Pulse 86; Resp 20; Pulse Ox 97% on 3 lpm NC; Pain 0/10; wg 03/08 23:26 Body Mass Index 13.19 (45.36 kg, 185.42 cm) ea ED Course: 03/08 23:23 Patient arrived in ED. do 23:25 Mireille Gomez, RAY is Primary Nurse. ea 23:27 Demarcus Cleaning PA is PHCP. jr8 23:27 Jose Esquivel MD is Attending Physician. jr8 23:29 Patient has correct armband on for positive identification. Bed in low position. Call ea light in reach. Side rails up X2. traffic monitor specialist on. Pulse ox on. NIBP on. 23:29 Arm band placed on right wrist. Patient placed in an exam room, on a stretcher, on ea pulse oximetry. 23:30 Triage completed. ea 23:41 XRAY CXR (1 view) In Process Unspecified. EDMS 23:50 BMP Sent. wg 23:50 Blood Culture Adult (2) Sent. wg 23:50 CBC with Diff Sent. wg 23:50 CPK Sent. wg 23:50 Ckmb Sent. wg 23:50 Hepatic Function Sent. wg 23:50 Lipase Sent. wg 23:50 Magnesium Sent. wg 23:50 NT PRO-BNP Sent. wg 23:50 PT-INR Sent. wg 23:50 Troponin (emerg Dept Use Only) Sent. wg 23:51 Inserted saline lock: 18 gauge in right forearm, using aseptic technique. Blood wg collected. 03/09 00:33 Luigi Nunes MD is Hospitalizing Provider. jr8 Administered Medications: 00:01 Drug: Albuterol - atroVENT (ipratropium) (3:1) (2.5 mg - 0.5 mg) 3 ml Route: Nebulizer; ea 00:01 Drug: SOLU-Medrol (methylPrednisoLONE) 125 mg Route: IVP; Site: right antecubital; ea Outcome: 00:34 Decision to Hospitalize by Provider. eugene 03:24 Admitted to Tele accompanied by tech, via wheelchair, room 207, with oxygen, with wg chart, Report called to Sergei 03:45 Patient left the ED. ea Signatures: Dispatcher [employer] EDMS Demarcus Cleaning PA PA jrAnabella Zavala Elena RN RN Jorge Morales, RAY kenny
--- NOTE | 2021-03-09 00:34 | EDPHYS ---
Physician Documentation [facility] Name: Bryan Hardin Age: 60 yrs Sex: Male : 1960 Arrival Date: 03/08/2021 Time: 23:23 Bed 7 Private MD: ED Physician Jose Esquivel HPI: 03/09 00:26 This 60 yrs old Male presents to ER via EMS with complaints of Breathing jr8 Difficulty. 00:26 Onset: The symptoms/episode began/occurred acutely, today. Duration: The symptoms are jr8 continuous. The patient's shortness of breath is aggravated by light activity. Associated signs and symptoms: The patient has no apparent associated signs or symptoms. Severity of symptoms: At their worst the symptoms were moderate in the emergency department the symptoms are unchanged. The patient has experienced similar episodes in the past, a few times. The patient has not recently seen a physician. This is a 60-year-old male patient that presented to the emergency room with acute onset shortness of breath that presented today. Patient normally does not require home oxygen therapy. Patient does have a history of COPD. Started to wheeze tonight and could not catch his breath. Has no medications for relief at this time.. Historical: - Allergies: 03/08 23:30 NKA; ea - Home Meds: 23:30 Prilosec Oral [Active]; Norvasc Oral [Active]; Allopurinol Oral [Active]; ea - PMHx: 23:30 THYROID CANCER; Lung mass; Kidney Mass; Hypertension; Gout; GERD; ea - Immunization history:: Adult Immunizations up to date, Client reports having NOT received the Covid vaccine. - Social history:: Smoking status: Patient reports the use of cigarette tobacco products, denies chronic smoking, but will smoke occasionally. ROS: 03/09 00:26 Eyes: Negative for injury, pain, redness, and discharge, ENT: Negative for injury, jr8 pain, and discharge, Neck: Negative for injury, pain, and swelling, Cardiovascular: Negative for chest pain, palpitations, and edema, Abdomen/GI: Negative for abdominal pain, nausea, vomiting, diarrhea, and constipation, Back: Negative for injury and pain, MS/Extremity: Negative for injury and deformity, Skin: Negative for injury, rash, and discoloration, Neuro: Negative for headache, weakness, numbness, tingling, and seizure. Respiratory: Positive for shortness of breath, wheezing. Exam: 00:26 Constitutional: This is a well developed, well nourished patient who is awake, alert, jr8 and in no acute distress. Cardiovascular: Regular rate and rhythm with a normal S1 and S2. No gallops, murmurs, or rubs. Normal PMI, no JVD. No pulse deficits. Abdomen/GI: Soft, non-tender, with normal bowel sounds. No distension or tympany. No guarding or rebound. No evidence of tenderness throughout. Back: No spinal tenderness. No costovertebral tenderness. Full range of motion. Skin: Warm, dry with normal turgor. Normal color with no rashes, no lesions, and no evidence of cellulitis. MS/ Extremity: Pulses equal, no cyanosis. Neurovascular intact. Full, normal range of motion. Neuro: Awake and alert, GCS 15, oriented to person, place, time, and situation. Cranial nerves II-XII grossly intact. Motor strength 5/5 in all extremities. Sensory grossly intact. Cerebellar exam normal. Normal gait. 00:26 Respiratory: the patient does not display signs of respiratory distress, Respirations: labored breathing, that is mild, tachypnea, that is mild, Breath sounds: wheezing: expiratory that is mild, is heard diffusely. Vital Signs: 03/08 23:26 BP 155 / 97; Pulse 90; Resp 24; Temp 97.7; Pulse Ox 92% on R/A; Weight 45.36 kg; Height ea 6 ft. 1 in. (185.42 cm); 03/09 01:45 BP 147 / 81; Pulse 80; Resp 20; Pulse Ox 95% on 3 lpm NC; 03:06 BP 159 / 89; Pulse 86; Resp 20; Pulse Ox 97% on 3 lpm NC; Pain 0/10; wg 03/08 23:26 Body Mass Index 13.19 (45.36 kg, 185.42 cm) ea MDM: 03/08 23:36 Patient medically screened. jr8 03/09 00:26 Data reviewed: vital signs, nurses notes, lab test result(s), EKG, radiologic studies, jr plain films. Data interpreted: Pulse oximetry: on room air is 92 %. Interpretation: borderline. Counseling: I had a detailed discussion with the patient and/or guardian regarding: the historical points, exam findings, and any diagnostic results supporting the discharge/admit diagnosis, lab results, radiology results, the need for further work-up and treatment in the hospital. ED course: Patient posttreatment still has tachypnea and increased work of breathing. Will admit for observation to continue treatments.. 03/08 23:32 Order name: BMP 03/08 23:32 Order name: Blood Culture Adult (2) 03/08 23:32 Order name: CBC with Diff 03/08 23:32 Order name: CPK 03/08 23:32 Order name: Ckmb; Complete Time: :03/08 23:32 Order name: Hepatic Function; Complete Time: :03/08 23:32 Order name: Lipase; Complete Time: :03/08 23:32 Order name: Magnesium; Complete Time: :03/08 23:32 Order name: NT PRO-BNP; Complete Time: :03/08 23:32 Order name: PT-INR; Complete Time: 00:30 03/08 23:32 Order name: Ptt, Activated; Complete Time: 00:30 03/08 23:32 Order name: Troponin (emerg Dept Use Only); Complete Time: :03/08 23:32 Order name: Basic Metabolic Panel; Complete Time: :49 [place] 03/08 23:32 Order name: XRAY CXR (1 view) 03/08 23:32 Order name: EKG; Complete Time: 23:33 03/08 23:32 Order name: Cardiac monitoring; Complete Time: 23:50 03/08 23:32 Order name: EKG - Nurse/Tech; Complete Time: 00:02 03/08 23:32 Order name: IV Saline Lock; Complete Time: 23:32 03/08 23:32 Order name: Labs collected and sent; Complete Time: :49 03/08 23:32 Order name: O2 Per Protocol; Complete Time: 23:32 03/08 23:32 Order name: O2 Sat Monitoring; Complete Time: 23:32 03/08 23:32 Order name: Blood Culture [facility] 03/08 23:32 Order name: CBC with Automated Diff; Complete Time: 00:30 [place] 03/08 23:32 Order name: Creatine Phosphokinase; Complete Time: 01:49 EDMS 03/09 00:32 Order name: ABG jr8 03/09 00:33 Order name: ABG Arterial Blood Gas; Complete Time: 01:49 EDMS 03/09 00:59 Order name: COVID-19/FLU A+B; Complete Time: 01:49 EDMS Administered Medications: 00:01 Drug: Albuterol - atroVENT (ipratropium) (3:1) (2.5 mg - 0.5 mg) 3 ml Route: Nebulizer; ea 00:01 Drug: SOLU-Medrol (methylPrednisoLONE) 125 mg Route: IVP; Site: right antecubital; ea Disposition: 04:22 Co-signature as Attending Physician, Jose Esquivel MD. [email or web address] Disposition Summary: 03/09/21 00:34 Hospitalization Ordered Hospitalization Status: Observation jr8 Provider: Luigi Nunes jr Condition: Stable jr Problem: new jr8 Symptoms: have improved jr8 Bed/Room Type: Standard [facility] Location: Telemetry/MedSurg (observation)(03/09/21 02:53) tl1 Room Assignment: 207(03/09/21 02:53) tl1 Diagnosis - COPD/ Chronic obstructive pulmonary disease with (acute) exacerbation [facility] Forms: - Medication Reconciliation Form jr8 - SBAR form jr8 Signatures: Dispatcher [employer] EDAZ Jose Esquivel MD MD pkDemarcus Rojas PA PA jr8 Mihai Washington, USABILITY ENGINEER-C USABILITY ENGINEER-Cla1 Yareli Britton RN RN [facility] Mireille Gomez RN RN ea Corrections: (The following items were deleted from the chart) 03/08 23:34 23:33 D-DIMER+COAG.LAB.BRZ ordered. [facility] EDAZ 03/09 01:08 00:34 Telemetry/MedSurg (observation) jr8 tl1 01:08 00:34 jr8 tl1 02:53 01:08 [facility] ER HOLD tl1 tl1 02:53 01:08 ERHOLD- tl1 tl1
[2021-03-09 00:40] LABS: ALT/SGPT 112 U/L (12-78); AST/SGOT 118 U/L (15-37); Albumin 3.4 g/dL (3.4-5.0); Alkaline Phosphatase 65 U/L (45-117); BUN Blood Urea Nitrogen 17 mg/dL (7-18); Bicarbonate 27 mmol/L (21-32); Bilirubin Direct < 0.1 mg/dL (0-0.2); Bilirubin Total 0.4 mg/dL (0.2-1.0); CKMB Creatine Kinase MB 6.6 ng/mL (1.0-3.6); Creatine Phosphokinase 112 U/L (39-308); Glucose Level 126 mg/dL (74-106); Lipase 350 U/L (73-393); Magnesium 1.8 mg/dL (1.8-2.4); NT PRO-BNP 192 pg/mL (<125); Potassium 3.5 mmol/L (3.5-5.1); Protein, Total 7.5 g/dL (6.4-8.2); Sodium Level 143 mmol/L (136-145); Troponin (Emerg Dept Use Only) < 0.02 ng/mL (0.0-0.045)
[2021-03-09 00:48] LABS: Arterial Blood Carboxyhemoglob 3.9 % (0-1.5); Blood Gas Oxyhemoglobin 88.2 % (94-97); Blood O2 Saturation 92.7 % (92-98.5)
[2021-03-09 00:59] LABS: SARS-COV-2 RT PCR NEGATIVE (NEGATIVE)
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
[2021-03-09] MEDS ORDERED: ONDANSETRON 4 MG/2 ML VIAL IV PRN (02:26)
[2021-03-09] MEDS ORDERED: ACETAMINOPHEN 500 MG TAB PO PRN (02:26)
[2021-03-09] MEDS: IPRATROPIUM BROM 0.5MG/2.5ML NEB SCH ×4 (02:53→19:40)
[2021-03-09] MEDS: ALBUTEROL 2.5 MG/3 ML NEB SOL NEB SCH ×4 (02:53→19:40)
[2021-03-09 05:07] VITALS: BMI 13.1
[2021-03-09] MEDS: PANTOPRAZOLE 40MG TABLET PO SCH (07:10)
--- NOTE | 2021-03-09 07:11 | RAD REPORT ---
EXAM DESCRIPTION: RAD - Chest Single View - 03/08/2021 11:41 pm CLINICAL HISTORY: SOB COMPARISON: Chest Single View dated 11/25/2020; Chest Pa And Lat (2 Views) dated 08/10/2020; Chest Sing le View dated 08/08/2020; CHEST SINGLE VIEW dated 11/29/2014 FINDINGS: Lines: None. Lungs: Scattered bilateral opacities which are more peripherally oriented. Prominence at the costal c artilage margins the simulate some of the opacities. Pleural: No significant pleural effusions or pneumothorax. Cardiac: The heart size is within normal limits. Bones: No acute fractures. Other: IMPRESSION: Question mild bilateral peripheral opacities a could reflect pneumonia. Some of the find ings are accentuated by the patient's costal cartilage margins.
[2021-03-09 07:41] LABS: Urine Appearance CLEAR (Clear); Urine Bilirubin NEGATIVE (Negative); Urine Blood TRACE (Negative); Urine Color YELLOW (Yellow); Urine Glucose NEGATIVE (Negative); Urine Protein 1+ (Negative); Urine Urobilinogen 0.2 mg/dL (0.2-1.0)
[2021-03-09 08:35] LABS: Urine Bacteria <20 /HPF (NONE SEEN); Urine Microscopic Reflex ORDER UMIC; Urine RBC <5 /HPF (NONE SEEN)
[2021-03-09 08:36] LABS: Urine Mucus SLIGHT /HPF (NONE SEEN)
[2021-03-09] MEDS ORDERED: METHYLPREDNISOLONE 40 MG INJ IV SCH (09:00)
[2021-03-09] MEDS: ENOXAPARIN 40 MG/0.4 ML SQ SCH (09:29)
[2021-03-09] MEDS: DULERA 200/5 (MOMETASONE/FORMOTEROL) INHALER IH SCH ×2 (11:56→21:40)
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
[2021-03-09] MEDS: TRAMADOL HCL 50 MG TAB PO PRN ×2 (15:38→21:47)
[2021-03-09] MEDS ORDERED: POTASSIUM CL SA 10 MEQ TAB PO ONE (20:00)
[2021-03-09] MEDS: predniSONE 20 MG TAB PO SCH (21:41)
[2021-03-10] MEDS: IPRATROPIUM BROM 0.5MG/2.5ML NEB SCH ×2 (01:10→07:50)
[2021-03-10] MEDS: ALBUTEROL 2.5 MG/3 ML NEB SOL NEB SCH ×2 (01:10→07:50)
[2021-03-10 06:13] LABS: Absolute Lymphocytes (CBC) 0.7 K/uL (0.7-4.9); Basophils % 0.1 % (0-1.3); Hematocrit 44.1 % (39.6-49.0); Lymphocytes % 5.1 % (15.3-44.8); MPV 7.5 fL (7.6-11.3); RBC Red Blood Cell Count 4.35 M/uL (4.33-5.43)
[2021-03-10 06:28] LABS: ALT/SGPT 69 U/L (12-78); AST/SGOT 30 U/L (15-37); Albumin 3.1 g/dL (3.4-5.0); Alkaline Phosphatase 47 U/L (45-117); BUN Blood Urea Nitrogen 15 mg/dL (7-18); Bicarbonate 28 mmol/L (21-32); Bilirubin Total 0.4 mg/dL (0.2-1.0); Glucose Level 149 mg/dL (74-106); Potassium 4.1 mmol/L (3.5-5.1); Protein, Total 6.9 g/dL (6.4-8.2); Sodium Level 139 mmol/L (136-145)
[2021-03-10] MEDS: PANTOPRAZOLE 40MG TABLET PO SCH (06:49)
[2021-03-10 07:31] LABS: Blood Morphology Comment NOT SEEN (NOT SEEN); Platelet Estimate ADEQ; White Blood Cell Scan OK (OK)
[2021-03-10 08:28] VITALS: BP 122/80; TEMP 97.8
[2021-03-10] MEDS: predniSONE 20 MG TAB PO SCH (08:42)
[2021-03-10] MEDS: ENOXAPARIN 40 MG/0.4 ML SQ SCH (08:50)
[2021-03-10] MEDS: DULERA 200/5 (MOMETASONE/FORMOTEROL) INHALER IH SCH (08:50)
[2021-03-10 09:05] VITALS: O2SAT 96
--- NOTE | 2021-03-10 10:45 | EKG ---
Test Date: 2021-03-09 Test Time: 00:00:30 Assistant Administrator: MICHELLE MEASUREMENT RESULTS: Intervals: Rate: 89 ME: 148 QRSD: 88 QT: 354 QTc: 430 [place]: P: 72 ME: 148 QRS: 74 T: 67 INTERPRETIVE STATEMENTS: Normal sinus rhythm Normal ECG Compared to ECG 11/25/2020 18:13:50 Sinus tachycardia no longer present Electronically Signed On 03-10-21 10:40:52 CDT by Luís Gross
[2021-03-10] MEDS ORDERED: INFLUENZA VACCINE (for 6+ mo) 0.5 ML DOSE IMVAC ONE (11:00)
--- NOTE | 2021-03-10 20:12 | P.DS ---
Admission Date: 03/09/21 Discharge Date: 03/10/21 Disposition: ROUTINE DISCHARGE Discharge Condition: GOOD Reason for Admission: SOB, COPD exacerbation Consultations: Pulm - Dr. Bautista Procedures: CXR (03/08): FINDINGS: Lines: None. Lungs: Scattered bilateral opacities which are more peripherally oriented. Prominence at the costal cartilage margins the simulate some of the opacities. Pleural: No significant pleural effusions or pneumothorax. Cardiac: The heart size is within normal limits. Bones: No acute fractures. Other: IMPRESSION: Question mild bilateral peripheral opacities a could reflect pneumonia. Some of the findings are accentuated by the patient's costal cartilage margins. Problem List: Acute hypoxemic respiratory failure secondary to acute COPD exacerbation Acute on Chronic COPD exacerbation. Hypertension Hyperlipidemia Gout GERD h/o Hep C h/o thyroid cancer Brief History of Present Illness: 60-year-old male with history of hypertension, COPD, thyroid cancer, hypertension, gout presents emergency room for shortness of breath. Patient ports shortness of breath began this evening noted to expiratory wheezing. Patient was evaluated emergency room and labs are significant for AST 118 ALT 112 Covid/influenza negative ABG pH 7.46 PO2 66 on 3 L per nasal cannula PCO2 41. Patient still with expiratory wheezing after receiving nebulizer treatments, steroids in the ER, ED provider is to admit to observation for further evaluation and management. Hospital Course: Treated for COPD exacerbation with steroids and nebs. Pulmonology was consulted. Patient had quick improvement and was discharged home with prednisone, dulera, and albuterol inhaler. Patient reported difficulty affording inhalers. He was given information for assistance. To follow up with Dr. Bautista in 1-2 weeks. He was noted to have mildly elevated LFTs on admission, likely secondary to dehydration / hypoxia. Improved / normalized the following morning. Initially a liver U/S was ordered to evaluate, however this was cancelled after the improvement of his LFTs and he stated regardless of what it showed he wouldn't do anything about it. Vital Signs/Physical Exam: Temp Pulse Resp BP Pulse Ox 97.8 F 74 18 122/80 97 03/10/21 08:00 03/10/21 08:00 03/10/21 08:00 03/10/21 08:00 03/10/21 08:00 General: Alert, In no apparent distress, Oriented x3 HEENT: Sclerae nonicteric Respiratory: Clear to auscultation bilaterally, Normal air movement, Diminished Cardiovascular: No edema, Regular rate/rhythm, Normal S1 S2 Gastrointestinal: Soft and benign, Non-distended, No tenderness Musculoskeletal: No erythema, No tenderness Integumentary: No rashes Neurological: Normal speech, Normal affect Laboratory Data at Discharge: WBC 14.00 K/uL (4.3-10.9) H D 03/10/21 05:54 Hgb 14.8 g/dL (13.6-17.9) 03/10/21 05:54 Hct 44.1 % (39.6-49.0) 03/10/21 05:54 Plt Count 245 K/uL (152-406) 03/10/21 05:54 PT 10.1 SECONDS (9.5-12.5) 03/08/21 23:45 INR 0.88 03/08/21 23:45 APTT 29.4 SECONDS (24.3-36.9) 03/08/21 23:45 Sodium 139 mmol/L (136-145) 03/10/21 05:54 Potassium 4.1 mmol/L (3.5-5.1) 03/10/21 05:54 BUN 15 mg/dL (7-18) 03/10/21 05:54 Creatinine 0.70 mg/dL (0.55-1.3) 03/10/21 05:54 Glucose 149 mg/dL (74-106) H 03/10/21 05:54 Magnesium 1.8 mg/dL (1.8-2.4) 03/08/21 23:30 Total Bilirubin 0.4 mg/dL (0.2-1.0) 03/10/21 05:54 AST 30 U/L (15-37) 03/10/21 05:54 ALT 69 U/L (12-78) 03/10/21 05:54 Alkaline Phosphatase 47 U/L (45-117) 03/10/21 05:54 Lipase 350 U/L (73-393) 03/08/21 23:30 Home Medications: Albuterol Inhaler [Ventolin Inhaler] 2 puff IH Q6H PRN 30 Days #1 hfa.aer.ad 03/10/21 Mometasone/Formoterol [Dulera 200 Mcg/5 Mcg Inhaler] 2 puff IH BID inhaler 03/10/21 predniSONE [Prednisone*] 20 mg PO BID 5 Days #10 tab 03/10/21 New Medications: predniSONE [Prednisone*] 20 mg PO BID 5 Days #10 tab Albuterol Inhaler [Ventolin Inhaler] 2 puff IH Q6H PRN 30 Days #1 hfa.aer.ad PRN Reason: Shortness Of Breath Diet: Regular Activity: Ad nam Followup: Ferdinand Bautista MD [ACTIVE - CAN ADMIT] - NONE,NONE [Primary Care Provider] - Time spent managing pt's care (in minutes): 40
== END 2021-03-10 10:14 | disposition home or self-care (01) | DRG 190 ==
LOC: ER 23:22 → ERHOLD 03-09 01:09 → 2ND 03-09 03:30 → OBSVTOIN 03-09 08:57
PROVIDERS: ADMIT Hospitalist; ATTEND Hospitalist
DX: J44.1 Chronic obstructive pulmonary disease with (acute) exacerbation (principal); J96.01 Acute respiratory failure with hypoxia; I10 Essential (primary) hypertension; E78.5 Hyperlipidemia, unspecified; M10.9 Gout, unspecified; K21.9 Gastro-esophageal reflux disease without esophagitis; E86.0 Dehydration; H54.62 Unqualified visual loss, left eye, normal vision right eye; Z86.19 Personal history of other infectious and parasitic diseases; Z85.850 Personal history of malignant neoplasm of thyroid; Z20.822 Contact with and (suspected) exposure to COVID-19
CPT/HCPCS: 0240U; 36415; 71045; 80048; 80053; 80076; 81003; 81015; 82550; 82553; 82805; 83690; 83735; 83880; 84484; 85025; 85610; 85730; 87040; 93005; 94640; 96374; 99285; G0378; J1650; J2920; J7512; J7606

== ENCOUNTER 2021-06-06 19:51 | Inpatient (IN) | payer SELFPAY ==
--- OUTSIDE RECORDS SUMMARY | 2021-06-06 19:55 | XMS REPORT | Continuity of Care Document ---
:1960 Author Organization [facility] t Address [address] [place] [address] Care Team Providers Name Role Phone Mookie MICHAELS Attending Clinician Russell Ha MD Attending Clinician Doctor Unassigned, Name Attending Clinician Unavailable Heather Vo Attending Clinician SUSHANT Attending Clinician Unavailable Payers Payer Name Policy Type Policy Number Effective Date Expiration Date S darrell MEDICAID SSI PENDING 2020 PENDING 00:00:00 [employer] [facility] [id number] 2017 00:00:00 [employer] [facility] [id number] 2017 CARE 00:00:00 Problems This patient has no known problems. Allergies, Adverse Reactions, Alerts Allergy Allergy Status Severity Reaction(s) Onset Inactive Treating Comm ents Source Name Type Date Date Clinician NO KNOWN Drug Active Univers ALLERGIE Class [facility] Medications This patient has no known medications. Procedures This patient has no known procedures. Encounters Start End Encounter Admission Attending Care Care Encounter Source Date/Time Date/Time Type Type Clinicians Facility Department ID 2021-04-09 Emergency [facility] [id number] Univers 06:35:42 [facility] 2021-04-08 Emergency [facility] [id number] Univers 20:43:34 [facility] 2021-04-07 Emergency [facility] [id number] Univers 12:02:15 itfranco [facility] 2020-08-24 2020-08-24 [facility] [id number] 10:47:00 12:55:00 Dee Kiki [id number] [place] [id number] [place] [id number] 2020-07-09 2020-07-09 [facility] [id number] 04:50:00 06:09:00 Hussain Wells Kiki [id number] [place] [id number] [place] [id number] 2020-05-18 2020-05-18 Orders Doctor NANI [id number] 00:00:00 00:00:00 Only Unassigned, GINGER [id number] Gallina [facility] [id number] 2020-03-03 2020-03-03 Orders Doctor NANI [id number] 00:00:00 00:00:00 Only Unassigned, GINGER [id number] [place] [facility] [id number] 2020-01-20 2020-01-20 Emergency Majo Herrera [facility] [id number] 10:35:00 12:49:00 Heather Swanson [id number] [place] [id number] [place] [id number] 2017-12-06 2017-12-06 Outpatient Shoaib CANCHOLA, [facility] RAD [id number] Univers 00:00:00 00:00:00 KALE galaviz [facility] Results This patient has no known results.
--- NOTE | 2021-06-06 21:09 | RAD REPORT ---
EXAM DESCRIPTION: RAD - Chest Single View - 06/06/2021 8:34 pm CLINICAL HISTORY: DYSPNEA COMPARISON: March 08 TECHNIQUE: AP portable chest image was obtained 06/06/2021 8:34 pm . FINDINGS: No new mass or consolidation. Vague nodular focus in the lateral right upper lung field dejesus perimposed on the anterior right first rib is similar or smaller than seen previously. Patient has a prominent baseline interstitial pattern. No significant failure or volume overload. Heart and vascula ture are normal. No measurable pleural effusion and no pneumothorax. No acute bony abnormality seen. No acute aortic findings suspected. IMPRESSION: No focal lung parenchymal process. Lung findings are similar or less prominent as detailed when compared to March 08.
--- NOTE | 2021-06-06 21:54 | EDPHYS ---
Physician Documentation [facility] Name: Bryan Hardin Age: 60 yrs Sex: Male : 1960 Arrival Date: 06/06/2021 Time: 19:55 Bed 20 Private MD: ED Physician German Santos HPI: 06/06 21:55 This 60 yrs old Male presents to ER via EMS with complaints of shortness of kb breath. 21:55 The patient has shortness of breath at rest. Onset: The symptoms/episode began/occurred kb 2 hour(s) ago. Duration: The symptoms are continuous. The patient's shortness of breath is aggravated by exertion, is alleviated by nothing. Associated signs and symptoms: Pertinent positives: non-productive cough, Pertinent negatives: chest pain, fever. Severity of symptoms: At their worst the symptoms were moderate in the emergency department the symptoms are unchanged. The patient has not experienced similar symptoms in the past. The patient has not recently seen a physician. Historical: - Allergies: 20:06 NKA; bb - Home Meds: 20:06 does not take any medication [Active]; bb - PMHx: 20:06 GERD; Gout; Hypertension; Kidney Mass; Lung mass; THYROID CANCER; bb - Immunization history:: Adult Immunizations unknown, unknown. - Social history:: Smoking status: Patient reports the use of cigarette tobacco products, denies chronic smoking, but will smoke occasionally, Patient uses alcohol, occasionally. ROS: 21:54 Constitutional: Negative for fever, chills, and weight loss. kb 21:54 Respiratory: Positive for cough, dyspnea on exertion, shortness of breath, Negative for hemoptysis, orthopnea, pleurisy, sputum production, wheezing. 21:54 All other systems are negative. Exam: 21:54 Constitutional: This is a well developed, well nourished patient who is awake, alert, kb and in no acute distress. Head/Face: Normocephalic, atraumatic. ENT: Moist Mucous membranes Cardiovascular: Regular rate and rhythm with a normal S1 and S2. No gallops, murmurs, or rubs. No pulse deficits. Abdomen/GI: Soft, non-tender. No distention Skin: Warm, dry with normal turgor. Normal color. MS/ Extremity: Pulses equal, no cyanosis. Neurovascular intact. Full, normal range of motion. Neuro: Awake and alert, GCS 15, oriented to person, place, time, and situation. Moves all extremities. Normal gait. Psych: Awake, alert, with orientation to person, place and time. Behavior, mood, and affect are within normal limits. 21:54 Respiratory: mild respiratory distress is noted, Respirations: labored breathing, that is mild, Breath sounds: decreased breath sounds, that are mild, are scattered, wheezing: expiratory that is mild, is scattered. Vital Signs: 20:02 BP 134 / 69; Pulse 100; Resp 20 S; Temp 98(O); Pulse Ox 89% on 4 lpm NC; Weight 56.7 kg bb (R); Height 6 ft. 1 in. (185.42 cm) (R); 06/07 01:00 BP 147 / 83; Pulse 92; Resp 27; Temp 98.3; Pulse Ox 96% 4 lpm ; Pain 0/10; sv1 04:28 BP 132 / 85; Pulse 71; Resp 15; Pulse Ox 97% 4 lpm ; Pain 0/10; sv1 05:27 BP 144 / 82; Pulse 70; Resp 20; Pulse Ox 96% 4 lpm ; Pain 0/10; sv1 06:34 BP 136 / 81; Pulse 65; Resp 19; Pulse Ox 94% 4 lpm ; sv1 06/06 20:02 Body Mass Index 16.49 (56.70 kg, 185.42 cm) bb MDM: 06/06 19:56 Patient medically screened. kb 21:55 Data reviewed: vital signs, nurses notes. Data interpreted: Pulse oximetry: on room air kb is 84 %. Interpretation: hypoxia. Plan: O2 by NC applied. Counseling: I had a detailed discussion with the patient and/or guardian regarding: the historical points, exam findings, and any diagnostic results supporting the discharge/admit diagnosis, lab results, radiology results, the need for further work-up and treatment in the hospital. Physician consultation: Matthew PARRISH regarding admission, to the telemetry unit. patient's condition, and will see patient in ED. 06/06 19:57 Order name: CBC with Diff; Complete Time: 22:58 kb 06/06 19:57 Order name: Basic Metabolic Panel; Complete Time: 23:49 kb 06/06 19:57 Order name: COVID-19 SARS RT PCR (Document "Date of Onset" if Symptomatic); Complete kb Time: 23:49 06/07 09:12 Order name: CBC with Automated Diff; Complete Time: 13:42 EDMS 06/07 09:28 Order name: C-Reactive Protein; Complete Time: 13:42 EDMS 06/07 09:28 Order name: Ferritin; Complete Time: 13:42 EDMS 06/06 19:57 Order name: Chest Single View XRAY; Complete Time: 21:16 kb 06/07 09:31 Order name: Comprehensive Metabolic Panel; Complete Time: 13:42 EDMS 06/07 09:31 Order name: Phosphorus; Complete Time: 13:42 EDMS 06/07 09:31 Order name: Magnesium; Complete Time: 13:42 EDMS 06/07 09:41 Order name: Procalcitonin; Complete Time: 13:42 EDMS 06/07 10:08 Order name: CBC Smear Scan; Complete Time: 13:42 EDMS 06/07 10:55 Order name: Urinalysis; Complete Time: 13:42 EDMS 06/07 11:16 Order name: Urine Microscopic Only; Complete Time: 13:42 EDMS 06/06 23:55 Order name: CT Chest For PE Angio ej 06/07 15:13 Order name: CT EDMS Administered Medications: 22:46 Drug: SOLU-Medrol (methylPrednisoLONE) 125 mg Route: IVP; Site: right forearm; sv1 06/07 00:59 Follow up: Response: No adverse reaction; Wheezing diminished sv1 06/06 23:41 Drug: DuoNeb (albuterol 2.5 mg, ipratropium 0.5 mg) (3:1) (2.5 mg - 0.5 mg) 3 ml Route: sv1 Nebulizer; 06/07 01:00 Follow up: Response: No adverse reaction sv1 Disposition Summary: 06/06/21 21:53 Hospitalization Ordered Hospitalization Status: Observation kb Provider: Rg Olmedo Condition: Stable kb Problem: an acute exacerbation kb Symptoms: are unchanged kb Bed/Room Type: Standard kb Location: [facility] ER HOLD(06/06/21 23:57) cs9 Room Assignment: ERHOLD-(06/06/21 23:57) cs9 Diagnosis - COPD/ Chronic obstructive pulmonary disease with (acute) exacerbation kb Forms: - Medication Reconciliation Form kb - SBAR form kb Addendum: 06/08/2021 20:29 Co-signature as Attending Physician, German Santos MD. [facility] Signatures: Dispatcher [employer] Elisa Morales, [employer]-C [employer]-Angle Guajardo, RN RN bb German Santos MD MD [place] [id number] Nic Blum RN RN sv1 Corrections: (The following items were deleted from the chart) 06/06 23:57 21:53 Telemetry/MedSurg (observation) kb cs9 23:57 21:53 kb cs9
--- NOTE | 2021-06-06 21:54 | ER ---
Nurse's Notes [facility] Name: Bryan Hardin Age: 60 yrs Sex: Male : 1960 Arrival Date: 06/06/2021 Time: 19:55 Bed 20 Private MD: Diagnosis: COPD/ Chronic obstructive pulmonary disease with (acute) exacerbation Presentation: 06/06 20:02 Chief complaint: EMS states: they were toned out for report of pt having difficulty bb breathing x 1 hour pt has hx of COPD, HTN but does not take any medication because he is homeless he is also supposed to be on O2. Coronavirus screen: difficulty breathing, Client presents with at least one sign or symptom that may indicate coronavirus-19. Standard/surgical mask placed on the client. Ebola Screen: No symptoms or risks identified at this time. Initial Sepsis Screen: Does the patient meet any 2 criteria? HR > 90 bpm. Does the patient have a suspected source of infection? No. Patient's initial sepsis screen is negative. Risk Assessment: Do you want to hurt yourself or someone else? Patient reports no desire to harm self or others. Onset of symptoms was June 06, 2021. 20:02 Method Of Arrival: EMS: [facility] bb 20:02 Acuity: ANTONINO 3 bb Triage Assessment: 20:06 General: Appears uncomfortable, slender, Behavior is calm, cooperative. Pain: Complains bb of pain in chest. Neuro: Level of Consciousness is awake, alert, obeys commands, Oriented to person, place, time, situation. Cardiovascular: Capillary refill < 3 seconds Patient's skin is warm and dry. Respiratory: Respiratory effort is labored. GI: No signs and/or symptoms were reported involving the gastrointestinal system. Derm: Skin is pink, warm \\T\\ dry. Musculoskeletal: Circulation, motion, and sensation intact. Historical: - Allergies: 20:06 NKA; bb - Home Meds: 20:06 does not take any medication [Active]; bb - PMHx: 20:06 GERD; Gout; Hypertension; Kidney Mass; Lung mass; THYROID CANCER; bb - Immunization history:: Adult Immunizations unknown, unknown. - Social history:: Smoking status: Patient reports the use of cigarette tobacco products, denies chronic smoking, but will smoke occasionally, Patient uses alcohol, occasionally. Screenin/29 04:29 Abuse screen: Denies threats or abuse. Nutritional screening: No deficits noted. sv1 Tuberculosis screening: No symptoms or risk factors identified. Fall Risk None identified. Assessment: 01:02 Reassessment: Breathing status has improved. The patient appears more relaxed. sv1 Tolerated meds well. No complaints offered.. Vital Signs: 06/06 20:02 BP 134 / 69; Pulse 100; Resp 20 S; Temp 98(O); Pulse Ox 89% on 4 lpm NC; Weight 56.7 kg bb (R); Height 6 ft. 1 in. (185.42 cm) (R); 06/07 01:00 BP 147 / 83; Pulse 92; Resp 27; Temp 98.3; Pulse Ox 96% 4 lpm ; Pain 0/10; sv1 04:28 BP 132 / 85; Pulse 71; Resp 15; Pulse Ox 97% 4 lpm ; Pain 0/10; sv1 05:27 BP 144 / 82; Pulse 70; Resp 20; Pulse Ox 96% 4 lpm ; Pain 0/10; sv1 06:34 BP 136 / 81; Pulse 65; Resp 19; Pulse Ox 94% 4 lpm ; sv1 06/06 20:02 Body Mass Index 16.49 (56.70 kg, 185.42 cm) bb ED Course: 06/06 19:55 Patient arrived in ED. cs9 19:56 Elisa Bull FNP[facility]C [facility] kb 19:56 German Santos MD is Attending Physician. kb 20:06 Triage completed. bb 20:06 Arm band placed on Patient placed in a hallway bed. bb 20:34 Chest Single View XRAY In Process Unspecified. EDMS 21:53 Rg Olmedo is Hospitalizing Provider. kb 22:12 Nic Blum, RAY is Primary Nurse. sv1 22:46 Basic Metabolic Panel Sent. sv1 22:46 COVID-19 SARS RT PCR (Document "Date of Onset" if Symptomatic) Sent. sv1 22:46 CBC with Diff Sent. sv1 06/07 04:29 Patient has correct armband on for positive identification. Bed in low position. Call sv1 light in reach. Side rails up X2. 04:29 No provider procedures requiring assistance completed. sv1 04:32 CT Chest For PE Angio Sent. sv1 16:05 IV discontinued, intact, bleeding controlled, No redness/swelling at site. Pressure jl7 dressing applied. Administered Medications: 06/06 22:46 Drug: SOLU-Medrol (methylPrednisoLONE) 125 mg Route: IVP; Site: right forearm; sv1 06/07 00:59 Follow up: Response: No adverse reaction; Wheezing diminished sv1 06/06 23:41 Drug: DuoNeb (albuterol 2.5 mg, ipratropium 0.5 mg) (3:1) (2.5 mg - 0.5 mg) 3 ml Route: sv1 Nebulizer; 06/07 01:00 Follow up: Response: No adverse reaction sv1 Intake: 04:30 PO: 150ml; IV: 0ml; Total: 150ml. sv1 Output: 04:30 Urine: 1400ml; Gastric: 0ml; EBL: 0ml; Total: 1400ml. sv1 Outcome: 06/06 21:53 Decision to Hospitalize by Provider. kb 06/07 07:00 Admitted to ER Hold. Please see [facility] for further documentation. jl7 Condition: stable Discharge instructions given to patient. 16:05 Patient left the ED. jl7 Signatures: Dispatcher [employer] EDMS Elisa Bull, BRANDO-Lori MICHAELS-Angle Guajardo RN Jacque Castrejon RN RN jl7 [place], Christine 9 Nic Blum RN RN sv1
[2021-06-06] MEDS ORDERED: METHYLPREDNISOLONE 125 MG INJ ONE (22:45)
[2021-06-06 22:54] LABS: Hematocrit 44.1 % (39.6-49.0); Lymphocytes % 21.9 % (15.3-44.8); MPV 7.1 fL (7.6-11.3); RBC Red Blood Cell Count 4.49 M/uL (4.33-5.43)
[2021-06-06 23:20] LABS: Potassium 3.4 mmol/L (3.5-5.1)
[2021-06-06] MEDS ORDERED: IPRATROPIUM BROM 0.5MG/2.5ML ONE (23:26)
[2021-06-06] MEDS ORDERED: ALBUTEROL 2.5 MG/3 ML NEB SOL ONE (23:26)
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
[2021-06-07] MEDS ORDERED: ALBUTEROL INHALER 60 PUFF/8 GM IH PRN (08:13)
[2021-06-07] MEDS ORDERED: ONDANSETRON 4 MG/2 ML VIAL IV PRN (08:13)
[2021-06-07] MEDS ORDERED: ACETAMINOPHEN 500 MG TAB PO PRN (08:13)
[2021-06-07] MEDS ORDERED: MELATONIN 5 MG TABLET PO PRN (08:13)
[2021-06-07] MEDS ORDERED: BENZONATATE 100 MG CAP PO PRN (08:13)
[2021-06-07] MEDS ORDERED: HYDRALAZINE HCL 20 MG/ML VIAL IV PRN (08:13)
[2021-06-07 08:23] VITALS: O2SAT 94
[2021-06-07] MEDS ORDERED: FAMOTIDINE 20 MG TAB PO SCH (09:00)
[2021-06-07] MEDS ORDERED: DULERA 200/5 (MOMETASONE/FORMOTEROL) INHALER IH SCH (09:00)
[2021-06-07] MEDS ORDERED: VITAMIN D 1000 UNIT TAB PO SCH (09:00)
[2021-06-07] MEDS ORDERED: THIAMINE HCL 100 MG TABLET PO SCH (09:00)
[2021-06-07] MEDS ORDERED: ASPIRIN EC 81 MG TAB PO SCH (09:00)
[2021-06-07] MEDS ORDERED: ENOXAPARIN 40 MG/0.4 ML SQ SCH (09:00)
[2021-06-07] MEDS: METHYLPREDNISOLONE 40 MG INJ IV SCH ×2 (09:00→10:00)
[2021-06-07] MEDS ORDERED: ZINC SULFATE 220 MG CAP PO SCH (09:00)
[2021-06-07 09:09] LABS: Absolute Lymphocytes (CBC) 0.4 K/uL (0.7-4.9); Hematocrit 48.3 % (39.6-49.0); Lymphocytes % 7.4 % (15.3-44.8); RBC Red Blood Cell Count 4.89 M/uL (4.33-5.43)
[2021-06-07 09:27] LABS: Ferritin 73.3 ng/mL (26-388)
[2021-06-07 09:28] LABS: C-Reactive Protein < 2.90 mg/L (<3.00)
[2021-06-07 09:31] LABS: Bilirubin Total 0.4 mg/dL (0.2-1.0); Magnesium 1.9 mg/dL (1.8-2.4); Phosphorus 3.2 mg/dL (2.5-4.9); Potassium 4.3 mmol/L (3.5-5.1); Protein, Total 7.3 g/dL (6.4-8.2)
[2021-06-07 09:51] VITALS: BMI 17.1
[2021-06-07] MEDS: ASCORBIC ACID 500 MG TABLET PO SCH ×2 (10:00→13:00)
[2021-06-07 10:06] LABS: Blood Morphology Comment NOT SEEN (NOT SEEN); Platelet Estimate ADEQ; White Blood Cell Scan OK (OK)
[2021-06-07] MEDS ORDERED: ASCORBIC ACID 500 MG TABLET ONE ×2 (10:09→14:54)
[2021-06-07] MEDS ORDERED: FAMOTIDINE 20 MG TAB ONE (10:10)
[2021-06-07] MEDS ORDERED: ASPIRIN 81 MG CHEWABLE TABLET ONE (10:10)
[2021-06-07] MEDS ORDERED: METHYLPREDNISOLONE 40 MG INJ ONE ×2 (10:10→11:49)
[2021-06-07] MEDS ORDERED: ZINC SULFATE 220 MG CAP ONE (10:10)
[2021-06-07] MEDS ORDERED: THIAMINE 200 MG/2 ML INJ ONE (10:10)
[2021-06-07] MEDS ORDERED: VITAMIN D 1000 UNIT TAB ONE (10:11)
[2021-06-07] MEDS ORDERED: ENOXAPARIN 40 MG/0.4 ML SQ ONE (10:11)
[2021-06-07 10:50] LABS: Urine Appearance CLEAR (Clear); Urine Bilirubin NEGATIVE (Negative); Urine Blood NEGATIVE (Negative); Urine Color YELLOW (Yellow); Urine Glucose NEGATIVE (Negative); Urine Protein 1+ (Negative); Urine Urobilinogen 0.2 mg/dL (0.2-1.0)
[2021-06-07 10:55] LABS: Urine Microscopic Reflex ORDER UMIC
[2021-06-07] MEDS ORDERED: PNEUMOCOCCAL VACCINE 0.5 ML IMVAC ONE (11:00)
[2021-06-07] MEDS ORDERED: INFLUENZA VACCINE (for 6+ mo) 0.5 ML DOSE IMVAC ONE (11:00)
[2021-06-07 11:15] LABS: Urine Bacteria NONE SEEN /HPF (NONE SEEN); Urine RBC <5 /HPF (NONE SEEN)
[2021-06-07 12:12] VITALS: BP 134/82
--- NOTE | 2021-06-07 14:44 | P.DS ---
Admission Date: 06/06/21 Discharge Date: 06/07/21 Disposition: ROUTINE DISCHARGE Discharge Condition: FAIR Reason for Admission: COVID+, copd exacerbation - Problems (1) COVID Current Visit: Yes Status: Acute (2) COPD exacerbation Current Visit: No Status: Acute (3) Hepatitis C Current Visit: No Status: Chronic Qualifiers: Viral hepatitis chronicity: unspecified Hepatic coma status: without hepatic coma Qualified Code(s): B19.20 - Unspecified viral hepatitis C without hepatic coma Brief History of Present Illness: Mr. Hardin is a 60 yo M with HTN, COPD, Hep C who presents with one day of SOB, SMITH, wheezing and cough. He ran out of his albuterol inhaler at home. O2 sats 89% on 4L NC upon arrival. Symptoms improved after steroids and breathing treatment. He denies fever, pleuritic pain, nausea, vomiting and diarrhea. COVID test returned positive. K 3.4 BUN 19 GFR 66. CXR: No focal lung parenchymal process. Patient hospitalized for further management. Hospital Course: Patient admitted to the medical floor and treated for COPD exacerbation with IV steroids, vitamins and albuterol inhaler. He reported significant improvement in her shortness of breath to baseline. He was weaned off oxygen. His oxygen saturation was 93 to 95% on room air. Patient symptoms deemed to be related to COPD exacerbation rather than Covid. Chest imaging showed no infiltrate. Patient has clinically improved to baseline. He is deemed stable for discharge. He is discharged with a short course prednisone therapy. His bronchodilators are resumed on discharge. Vital Signs/Physical Exam: Temp Pulse Resp BP Pulse Ox 69 18 134/82 93 06/07/21 12:00 06/07/21 12:00 06/07/21 12:00 06/07/21 12:00 General: Alert, In no apparent distress, Oriented x3 HEENT: Mucous membr. moist/pink Neck: JVD not distended Respiratory: Clear to auscultation bilaterally, Normal air movement Cardiovascular: No edema, Regular rate/rhythm, Normal S1 S2, No murmurs Gastrointestinal: Normal bowel sounds, Soft and benign, Non-distended, No tenderness Musculoskeletal: No swelling Integumentary: No rashes, No erythema Neurological: Normal strength at 5/5 x4 extr Laboratory Data at Discharge: WBC 5.20 K/uL (4.3-10.9) D 12/29/21 08:54 Hgb 16.1 g/dL (13.6-17.9) 06/07/21 08:54 Hct 48.3 % (39.6-49.0) 06/07/21 08:54 Plt Count 262 K/uL (152-406) 06/07/21 08:54 Sodium 135 mmol/L (136-145) L 06/07/21 08:54 Potassium 4.3 mmol/L (3.5-5.1) 06/07/21 08:54 BUN 18 mg/dL (7-18) 06/07/21 08:54 Creatinine 1.03 mg/dL (0.55-1.3) 06/07/21 08:54 Glucose 251 mg/dL (74-106) H 06/07/21 08:54 Phosphorus 3.2 mg/dL (2.5-4.9) 06/07/21 08:54 Magnesium 1.9 mg/dL (1.8-2.4) 06/07/21 08:54 Total Bilirubin 0.4 mg/dL (0.2-1.0) 06/07/21 08:54 AST 47 U/L (15-37) H 06/07/21 08:54 ALT 71 U/L (12-78) 06/07/21 08:54 Alkaline Phosphatase 74 U/L (45-117) 06/07/21 08:54 Home Medications: Albuterol Inhaler [Ventolin Inhaler*] 2 puff IH Q6H PRN 30 Days #1 hfa.aer.ad 03/10/21 Mometasone/Formoterol [Dulera 200 Mcg/5 Mcg Inhaler] 2 puff IH BID inhaler 03/10/21 Ascorbic Acid [Vitamin C*] 1,000 mg PO TID #180 tablet 06/07/21 Aspirin [Aspirin EC] 81 mg PO DAILY #30 tablet.dr 06/07/21 Benzonatate [Tessalon Perle*] 100 mg PO TID PRN #30 cap 06/07/21 Cholecalciferol (Vitamin D3) [Vitamin D 1000 Iu Tab*] 4,000 unit PO DAILY #120 tab 06/07/21 Zinc Sulfate [Zinc Sulfate*] 220 mg PO DAILY #30 cap 06/07/21 predniSONE [Prednisone*] 20 mg PO BID 5 Days #10 tab 06/07/21 New Medications: Aspirin [Aspirin EC] 81 mg PO DAILY #30 tablet. predniSONE [Prednisone*] 20 mg PO BID 5 Days #10 tab Benzonatate [Tessalon Perle*] 100 mg PO TID PRN #30 cap PRN Reason: Cough Ascorbic Acid [Vitamin C*] 1,000 mg PO TID #180 tablet Cholecalciferol (Vitamin D3) [Vitamin D 1000 Iu Tab*] 4,000 unit PO DAILY #120 tab Zinc Sulfate [Zinc Sulfate*] 220 mg PO DAILY #30 cap Diet: AHA Activity: Ad nam Followup: Ferdinand Bautista MD [ACTIVE - CAN ADMIT] - 1-2 Weeks NONE,NONE [Primary Care Provider] - Time spent managing pt's care (in minutes): 32
--- NOTE | 2021-06-07 15:10 | RAD REPORT ---
EXAM DESCRIPTION: CT - Chest For Pe Angio - 06/07/2021 6:20 am CLINICAL HISTORY: The patient is 60 years old and is Male; COPD TECHNIQUE: Axial computed tomographic angiography images of the chest with intravenous contrast. S agittal and coronal reformatted images were created and reviewed. This CT exam was performed using one or more of the following dose reduction techniques: automated exposure control, adjustment of t he mA and/or kV according to patient size, and/or use of iterative reconstruction technique. MIP reconstructed images were created and reviewed. COMPARISON: CTA of the chest report August 08, 2020. Images are not available for review. FINDINGS: ARTIFACTS: The exam is suboptimal secondary to motion artifact. PULMONARY ARTERIES: There are no obvious filling defects identified within the pulmonary arteries to suggest pulmonary embolism. AORTA: No acute findings. No thoracic aortic aneurysm. LUNGS: Minimal left lower lobe atelectasis is present. The lungs are otherwise clear. The tracheo bronchial tree is widely patent. No mass. PLEURAL SPACE: Unremarkable. No significant effusion. No pneumothorax. HEART: Unremarkable. No cardiomegaly. No significant pericardial effusion. No evidence of R V dysfunction. BONES/JOINTS: No acute fracture. No dislocation. SOFT TISSUES: Unremarkable. LYMPH NODES: Unremarkable. No enlarged lymph nodes. IMPRESSION: 1. No evidence of pulmonary embolism. 2. Minimal left lower lobe atelectasis. Electronically signed by: Radha Gunter MD 06/07/2021 12:58 AM FOOD CASHIER Due to temporary technical issues with the PACS/Fluency reporting system, reports are being signed by the in house radiologists without review as a courtesy to insure prompt reporting. The interpreting radiologist is fully responsible for the content of the report.
[2021-06-07 16:13] VITALS: TEMP 98.3
== END 2021-06-07 16:00 | disposition home or self-care (01) | DRG 178 ==
LOC: ER 19:51 → ERHOLD 23:46
PROVIDERS: ADMIT Internal Medicine; ATTEND Internal Medicine
DX: U07.1 COVID-19 (principal); J44.1 Chronic obstructive pulmonary disease with (acute) exacerbation; I10 Essential (primary) hypertension; B19.20 Unspecified viral hepatitis C without hepatic coma; Z85.850 Personal history of malignant neoplasm of thyroid
CPT/HCPCS: 36415; 71045; 71275; 80048; 80053; 81003; 81015; 82728; 83735; 84100; 84145; 85025; 86140; 94640; 94760; 96374; 99285; J1650; J2920; J2930; J3411; J7606; Q9967; U0003

== ENCOUNTER 2022-03-31 18:14 | Inpatient (IN) | payer SELFPAY ==
[2022-03-31] MEDS ORDERED: METHYLPREDNISOLONE 125 MG INJ ONE (18:54)
[2022-03-31 19:06] LABS: Absolute Lymphocytes (CBC) 2.4 K/uL (0.7-4.9); Hematocrit 50.3 % (39.6-49.0); Lymphocytes % 44.1 % (15.3-44.8); MCV 97.2 fL (80-100); MPV 8.2 fL (7.6-11.3); RBC Red Blood Cell Count 5.17 M/uL (4.33-5.43)
[2022-03-31 19:07] LABS: Protime INR 0.94
--- NOTE | 2022-03-31 19:52 | RAD REPORT ---
EXAM DESCRIPTION: Chava Single View03/31/2022 7:18 pm CLINICAL HISTORY: sob COMPARISON: 2020 FINDINGS: The lungs appear clear of acute infiltrate. The heart is normal size IMPRESSION: No acute abnormalities displayed
[2022-03-31 20:09] LABS: ALT/SGPT 79 U/L (12-78); AST/SGOT 138 U/L (15-37); Albumin 2.7 g/dL (3.4-5.0); Alkaline Phosphatase 52 U/L (45-117); BUN Blood Urea Nitrogen 8 mg/dL (7-18); Bicarbonate 26 mmol/L (21-32); Bilirubin Direct < 0.1 mg/dL (0-0.2); Bilirubin Total 0.7 mg/dL (0.2-1.0); Glomerular Filtration Rate 99 ml/min (=/>90); Glucose Level 80 mg/dL (74-106); Magnesium 2.1 mg/dL (1.8-2.4); NT PRO-BNP 150 pg/mL (<125); Protein, Total 7.7 g/dL (6.4-8.2); Sodium Level 129 mmol/L (136-145); Troponin High Sensitivity 16.3 pg/mL (<58.9)
[2022-03-31] MEDS ORDERED: NA CHLORIDE 0.9% 500 ML ONE (20:27)
--- NOTE | 2022-03-31 21:24 | RAD REPORT ---
EXAM DESCRIPTION: US - Abdomen Exam Limited - 03/31/2022 8:59 pm CLINICAL HISTORY: Abdominal pain. COMPARISON: 2020 FINDINGS: Patient was not NPO. The gallbladder wall is not significantly thickened. A gallstone is not seen. The biliary tree is normal caliber. IMPRESSION: Unremarkable gallbladder ultrasound.
[2022-03-31 22:05] LABS: Arterial Blood Carboxyhemoglob 2.2 % (0-1.5); Blood Gas Oxyhemoglobin 86.6 % (94-97); Blood O2 Saturation 89.6 % (92-98.5)
--- NOTE | 2022-03-31 22:05 | EDPHYS ---
Physician Documentation [facility] Name: Bryan Hardin Age: 61 yrs Sex: Male : 1960 Arrival Date: 03/31/2022 Time: 18:21 Bed 15 Private MD: ED Physician Thomas Nunes HPI: 03/31 18:30 This 61 yrs old Male presents to ER via EMS with complaints of Shortness of cp Breath. 18:30 The patient has shortness of breath at rest. cp 18:30 Onset: The symptoms/episode began/occurred gradually, and became worse today. Duration: cp The symptoms are continuous, and are steadily getting worse. 18:30 The patient's shortness of breath is aggravated by light activity. Associated signs and cp symptoms: Pertinent negatives: chest pain, productive cough, diaphoresis, fever, numbness in extremities, vomiting. Severity of symptoms: in the emergency department the symptoms are unchanged despite home interventions. Historical: - Allergies: 18:26 NKA; ko1 - Home Meds: 18:26 does not take any medication [Active]; ko1 - PMHx: 18:26 GERD; Gout; Hypertension; Kidney Mass; Lung mass; THYROID CANCER; ko1 - Immunization history:: Adult Immunizations unknown. - Social history:: Smoking status: Patient denies any tobacco usage or history of. ROS: 18:35 Constitutional: Negative for body aches, chills, fever, poor PO intake. cp 18:35 Eyes: Negative for injury, pain, redness, and discharge. cp 18:35 ENT: Negative for drainage from ear(s), ear pain, sore throat, difficulty swallowing, difficulty handling secretions. 18:35 Cardiovascular: Negative for chest pain, edema, palpitations. 18:35 Respiratory: Positive for cough, with no reported sputum, shortness of breath, at rest. Negative for wheezing. 18:35 Abdomen/GI: Negative for abdominal pain, vomiting, diarrhea, constipation, black/tarry stool, rectal bleeding. 18:35 Neuro: Negative for altered mental status, dizziness, headache, syncope, weakness. 18:35 All other systems are negative. Exam: 18:40 Constitutional: The patient appears in no acute distress, alert, awake, cp non-diaphoretic, non-toxic, well developed, well nourished. 18:40 Head/Face: Normocephalic, atraumatic. cp 18:40 Eyes: Periorbital structures: appear normal, Conjunctiva: normal, no exudate, no injection, Sclera: no appreciated abnormality, Lids and lashes: appear normal, bilaterally. 18:40 ENT: External ear(s): are unremarkable, Nose: is normal, Mouth: Lips: moist, Oral mucosa: pink and intact, moist, Posterior pharynx: Airway: no evidence of obstruction, patent. 18:40 Neck: ROM/movement: is normal, is supple, without pain, no range of motions limitations. 18:40 Chest/axilla: Inspection: normal, Palpation: is normal, no crepitus, no tenderness. 18:40 Cardiovascular: Rate: normal, Rhythm: regular, Edema: is not appreciated, JVD: is not appreciated. 18:40 Respiratory: the patient does not display signs of respiratory distress, Respirations: normal, no use of accessory muscles, no retractions, labored breathing, is not present, Breath sounds: decreased breath sounds, that are mild, throughout, stridor, is not appreciated, wheezing: is not appreciated. 18:40 Abdomen/GI: Inspection: abdomen appears normal, Palpation: abdomen is soft and non-tender, in all quadrants. 18:40 Back: pain, is absent, ROM is normal. 18:40 Neuro: Orientation: to person, place \\T\\ time. Mentation: able to follow commands, slow to respond, Motor: moves all fours, strength is normal, Sensation: is normal. 19:20 ECG was reviewed by the Attending Physician. cp Vital Signs: 18:26 BP 134 / 86; Pulse 75; Resp 18; Temp 97.4; Pulse Ox 94% on R/A; Weight 70.31 kg; Height ko1 6 ft. 1 in. (185.42 cm); Pain 0/10; 18:35 BP 122 / 85; Pulse 86; Pulse Ox 93% on R/A; ko1 21:45 BP 140 / 79; Pulse 96; Resp 20; Pulse Ox 86% on R/A; ke1 21:50 Pulse Ox 93% on 3 lpm NC; ke1 22:00 Pulse Ox 96% on 3 lpm NC; ke1 23:28 BP 149 / 86; Pulse 86; Resp 14; Temp 97.6(O); Pulse Ox 96% on 3 lpm NC; Pain 0/10; ke1 18:26 Body Mass Index 20.45 (70.31 kg, 185.42 cm) ko1 MDM: 18:23 Patient medically screened. cp 19:00 Differential diagnosis: asthma, Bronchitis CHF exacerbation, Chronic Obstructive cp Pulmonary Disease pneumonia, Pneumothorax pulmonary edema, Pulmonary Embolism Unstable Angina. 22:00 Data reviewed: vital signs, nurses notes, lab test result(s), EKG, radiologic studies, cp plain films. 22:00 Data interpreted: pvc monitor: rate is 94 beats/min, rhythm is regular, cp Interpretation: normal rate, normal rhythm, Pulse oximetry: on 3L(s) per nasal canula, is 96 %. Interpretation: acceptable. Test interpretation: by ED physician or midlevel provider: ECG, plain radiologic studies. Physician consultation: Ashley Proctor PA-C was contacted at 22:00, regarding admission, to the telemetry unit. patient's condition. 03/31 18:22 Order name: Basic Metabolic Panel; Complete Time: 20:23 cp 03/31 20:23 Interpretation: Normal except: NA 129; CL 97. cp 03/31 18:22 Order name: CBC with Diff; Complete Time: 19:25 cp 03/31 19:25 Interpretation: Normal except: HCT 50.3; RDW 15.9; LOPEZ% 41.5; EOSINOPHIL % 5.1. 03/31 18:22 Order name: LFT's; Complete Time: 20:23 cp 03/31 21:00 Interpretation: Normal except: AST 138; ALT 79; ALB 2.7; GLOB 5.0; A/G 0.5. cp 03/31 18: Order name: Magnesium; Complete Time: 20:23 cp 03/31 18: Order name: NT PRO-BNP; Complete Time: 20:23 cp 03/31 21:00 Interpretation: Abnormal: NT PRO-BNP 150. 03/31 18: Order name: PT-INR; Complete Time: 19:25 cp 03/31 18: Order name: Troponin HS; Complete Time: 20:23 cp 03/31 21:00 Interpretation: Troponin HS 16.3; Reviewed. 03/31 18: Order name: XRAY Chest (1 view); Complete Time: 19:54 cp 03/31 19:54 Interpretation: Report review. cp 03/31 20:25 Order name: US Abdomen Limited: gallbladder; Complete Time: 21:38 cp 03/31 21:38 Interpretation: Report reviewed. cp 03/31 21:49 Order name: COVID-19 SARS RT PCR (Document "Date of Onset" if Symptomatic); Complete cp Time: 23:11 03/31 21:49 Order name: ABG; Complete Time: 22:12 cp 03/31 21:55 Order name: D-Dimer; Complete Time: 22:12 EDMS 03/31 21:55 Order name: LAB Add On cp 03/31 18:22 Order name: EKG; Complete Time: 18:23 cp 03/31 18:22 Order name: Cardiac monitoring; Complete Time: 18:36 cp 03/31 18:22 Order name: EKG - Nurse/Tech; Complete Time: 19:15 cp 03/31 18:22 Order name: IV Saline Lock; Complete Time: 18:48 cp 03/31 18:22 Order name: Labs collected and sent; Complete Time: 18:48 cp 03/31 18:22 Order name: O2 Per Protocol; Complete Time: 18:36 cp 03/31 18:22 Order name: O2 Sat Monitoring; Complete Time: 18:36 cp 03/31 20:25 Order name: NPO; Complete Time: 22:37 cp 03/31 22:06 Order name: CT Chest For PE Angio; Complete Time: 23:11 cp EC:20 Rate is 62 beats/min. Rhythm is regular. MN interval is normal. QRS interval is normal. cp QT interval is normal. T waves are Inverted in leads aVL, aVR. Interpreted by me. Reviewed by me. Administered Medications: 18:23 CANCELLED (Physician Discretion): SOLU-Medrol (methylPrednisoLONE) 125 mg IVP once cp 19:04 Drug: SOLU-Medrol (methylPrednisoLONE) 125 mg Route: IVP; Site: left antecubital; ko1 19:24 Drug: Albuterol - atroVENT (ipratropium) (3:1) (2.5 mg - 0.5 mg) 3 ml Route: Nebulizer; ke1 20:45 Drug: NS 0.9% 500 ml Route: IV; Rate: bolus; Site: left antecubital; ke1 Disposition: 04/01 07:17 Co-signature as Attending Physician, Thomas Nunes MD. rn Disposition Summary: 03/31/22 22:05 Hospitalization Ordered Hospitalization Status: Inpatient Admission cp Provider: Ashley Proctor cp Location: Telemetry/MedSurg (Inpatient) cp Condition: Stable cp Problem: new cp Symptoms: have improved cp Bed/Room Type: Standard cp Room Assignment: 415(03/31/22 23:12) mw Diagnosis - COPD/ Chronic obstructive pulmonary disease with (acute) exacerbation cp - Hypoxemia cp Forms: - Medication Reconciliation Form cp - SBAR form cp Signatures: Dispatcher [employer] EDMS Breonna Wilder RN RN mw Nieto, Roman, MD MD rn Page, Corey, PA PA cp Ebrottie, Kouassi RN RN ke1 Kassidy Hernandez RN RN ko1 Ashley Proctor, PABjorn PA-C sb4 Corrections: (The following items were deleted from the chart) 03/31 18:23 18:22 SOLU-Medrol (methylPrednisoLONE) 125 mg IVP once ordered. cp cp 22:27 21:56 D-DIMER+COAG.LAB.BRZ ordered. EDMS EDMS 23:08 18:45 This 61 yrs old Male presents to ER via EMS with complaints of Shortness cp of Breath. cp 23:08 18:45 The patient has shortness of breath at rest, cp cp 23:12 22:05 cp mw
--- NOTE | 2022-03-31 22:05 | ER ---
Nurse's Notes [facility] Name: Bryan Hardin Age: 61 yrs Sex: Male : 1960 Arrival Date: 03/31/2022 Time: 18:21 Bed 15 Private MD: Diagnosis: COPD/ Chronic obstructive pulmonary disease with (acute) exacerbation;Hypoxemia Presentation: 03/31 18:25 Chief complaint: EMS states: patients called 911 for patient being lethargic and ko1 short of breath. Coronavirus screen: At this time, the client does not indicate any symptoms associated with coronavirus-19. Ebola Screen: No symptoms or risks identified at this time. Initial Sepsis Screen: Does the patient meet any 2 criteria? No. Patient's initial sepsis screen is negative. Does the patient have a suspected source of infection? No. Patient's initial sepsis screen is negative. Risk Assessment: Do you want to hurt yourself or someone else? Patient reports no desire to harm self or others. Onset of symptoms was March 31, 2022. 18:25 Method Of Arrival: EMS: [facility] ko1 18:25 Acuity: ANTONINO 3 ko1 Triage Assessment: 18:26 General: Appears in no apparent distress. comfortable, Behavior is calm, cooperative, ko1 appropriate for age. Pain: Denies pain. 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 Neuro: No deficits noted. Cardiovascular: No deficits noted. Respiratory: Reports felt like he had a COPD attack earlier. Is suppose to be on inhalers but cant afford any medications. GI: No deficits noted. : No deficits noted. Derm: No deficits noted. Musculoskeletal: No deficits noted. Historical: - Allergies: 18:26 NKA; ko1 - Home Meds: 18:26 does not take any medication [Active]; ko1 - PMHx: 18:26 GERD; Gout; Hypertension; Kidney Mass; Lung mass; THYROID CANCER; ko1 - Immunization history:: Adult Immunizations unknown. - Social history:: Smoking status: Patient denies any tobacco usage or history of. Screenin:35 Abuse screen: Denies threats or abuse. Denies injuries from another. Nutritional ko1 screening: No deficits noted. Tuberculosis screening: No symptoms or risk factors identified. Fall Risk None identified. Assessment: 18:35 General: Behavior is calm, cooperative, appropriate for age. ko1 21:00 Reassessment: Patient appears in no apparent distress at this time. Patient is alert, ke1 oriented x 3, equal unlabored respirations, skin warm/dry/pink. Vital Signs: 18:26 BP 134 / 86; Pulse 75; Resp 18; Temp 97.4; Pulse Ox 94% on R/A; Weight 70.31 kg; Height ko1 6 ft. 1 in. (185.42 cm); Pain 0/10; 18:35 BP 122 / 85; Pulse 86; Pulse Ox 93% on R/A; ko1 21:45 BP 140 / 79; Pulse 96; Resp 20; Pulse Ox 86% on R/A; ke1 21:50 Pulse Ox 93% on 3 lpm NC; ke1 22:00 Pulse Ox 96% on 3 lpm NC; ke1 23:28 BP 149 / 86; Pulse 86; Resp 14; Temp 97.6(O); Pulse Ox 96% on 3 lpm NC; Pain 0/10; ke1 18:26 Body Mass Index 20.45 (70.31 kg, 185.42 cm) ko1 ED Course: 18:21 Patient arrived in ED. eb 18:22 Jcarlos Downs PA is PHCP. cp 18:22 Thomas Nunes MD is Attending Physician. cp 18:25 Kassidy Hernandez, RAY is Primary Nurse. ko1 18:26 Triage completed. ko1 18:26 Arm band placed on right wrist. ko1 18:35 Patient has correct armband on for positive identification. Bed in low position. Call ko1 light in reach. Side rails up X 1. 18:48 Basic Metabolic Panel Sent. ko1 18:48 CBC with Diff Sent. ko1 18:48 LFT's Sent. ko1 18:48 Magnesium Sent. ko1 18:48 NT PRO-BNP Sent. ko1 18:48 PT-INR Sent. ko1 18:48 Troponin HS Sent. ko1 18:50 Inserted saline lock: 20 gauge in left antecubital area, using aseptic technique. Blood ko1 collected. 19:20 XRAY Chest (1 view) In Process Unspecified. EDMS 21:01 US Abdomen Limited: gallbladder In Process Unspecified. EDMS 22:03 Ashley Proctor PA-C is Hospitalizing Provider. cp 22:04 Notified Nurse Practitioner and/or Physician Surveillance Agent of a critical lab result(s), angeli DDimer of [address] Jcarlos PARRISH notified. 22:16 COVID-19 SARS RT PCR (Document "Date of Onset" if Symptomatic) Sent. ke1 22:57 CT Chest For PE Angio In Process Unspecified. EDMS 23:27 No provider procedures requiring assistance completed. ke1 23:27 Patient admitted, IV remains in place. ke1 Administered Medications: 18:23 CANCELLED (Physician Discretion): SOLU-Medrol (methylPrednisoLONE) 125 mg IVP once cp 19:04 Drug: SOLU-Medrol (methylPrednisoLONE) 125 mg Route: IVP; Site: left antecubital; ko1 19:24 Drug: Albuterol - atroVENT (ipratropium) (3:1) (2.5 mg - 0.5 mg) 3 ml Route: Nebulizer; ke1 20:45 Drug: NS 0.9% 500 ml Route: IV; Rate: bolus; Site: left antecubital; ke1 Medication: 23:28 VIS not applicable for this client. ke1 Outcome: 22:05 Decision to Hospitalize by Provider. cp 23:27 Admitted to Med/surg accompanied by tech, Report called to Angle BELL ke1 23:27 Condition: good ke1 23:27 Instructed on the need for admit. 23:51 Patient left the ED. ke1 Signatures: Dispatcher [employer] EDMS Angle Sneed RN Jcarlos Ta PA PA Aleyda Ortiz Kouassi, RN RN ke1 Kassidy Hernandez RN RN ko1
--- NOTE | 2022-03-31 23:04 | RAD REPORT ---
EXAM DESCRIPTION: CT - Chest For Pe Angio - 03/31/2022 10:55 pm CLINICAL HISTORY: sob COMPARISON: 2020 TECHNIQUE: Dynamically enhanced axial 3 mm thick images of the chest were obtained during administra tion of <100> mL Isovue 370 IV contrast. Coronal and oblique reconstruction images were generated and reviewed. Exam utilizes a protocol for optimal evaluation of pulmonary arterial tree. Maximum intensity projections 3D imaging was utilized All CT scans are performed using dose optimization technique as appropriate and may include automated exposure control or mA/KV adjustment according to patient size. FINDINGS: A pulmonary embolus is not seen. A thoracic aortic aneurysm is not noted. A pleural effusion is not seen. A pericardial effusion is not seen. 1 centimeter cavitary lesion right upper lobe IMPRESSION: Negative for a pulmonary embolism. 1 centimeter cavitary lesion right upper lobe most likely infectious. Neoplasm can also have this cait earance but is considered less likely. It is recommended that patient have followup CT in 3 months fo r re-evaluation
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
[2022-04-01] MEDS ORDERED: ALBUTEROL 2.5 MG/3 ML NEB SOL NEB PRN ×2 (00:15→10:00)
[2022-04-01] MEDS ORDERED: NA CHLORIDE 0.9% 1,000 ML IV SCH (00:15)
[2022-04-01] MEDS ORDERED: ACETAMINOPHEN 500 MG TAB PO PRN (00:15)
[2022-04-01] MEDS ORDERED: ONDANSETRON 4 MG/2 ML VIAL IV PRN (00:15)
[2022-04-01] MEDS: METHYLPREDNISOLONE 40 MG INJ IV SCH ×2 (01:11→09:58)
[2022-04-01 01:34] VITALS: BMI 20.4
[2022-04-01 03:43] LABS: Absolute Lymphocytes (CBC) 0.1 K/uL (0.7-4.9); Hematocrit 50.5 % (39.6-49.0); Lymphocytes % 6.2 % (15.3-44.8); MPV 7.2 fL (7.6-11.3); RBC Red Blood Cell Count 5.21 M/uL (4.33-5.43)
[2022-04-01 04:09] LABS: Albumin 2.8 g/dL (3.4-5.0); Bilirubin Total 0.7 mg/dL (0.2-1.0); Phosphorus 2.1 mg/dL (2.5-4.9); Potassium 3.8 mmol/L (3.5-5.1); Protein, Total 6.5 g/dL (6.4-8.2); Thyroid Stimulating Hormone 0.381 uIU/mL (0.360-3.740)
[2022-04-01] MEDS ORDERED: Magnesium Sulfate 2gm IVPB 2 G/50 ML BAG IV ONE (05:28)
[2022-04-01] MEDS ORDERED: POTASSIUM PHOS IN 0.9 % NACL 15 MMOL/250 ML BAG IV ONE (07:00)
[2022-04-01] MEDS: ENOXAPARIN 40 MG/0.4 ML SQ SCH (09:58)
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
--- NOTE | 2022-04-01 13:22 | P.PN ---
Subjective Date of Service: 04/01/22 Chief Complaint: COPD Exacerbation Patient states he feels better than yesterday. He states he has been coughing intermittently, cough is productive of whitish sputum, no hemoptysis. He denies any chest pain. No recorded fever. Physical Examination - Vital Signs Temperature: 98.7 F Blood Pressure: 149/84 Pulse: 79 Respirations: 16 Pulse Ox (%): 94 - Studies Laboratory Data (last 24 hrs) 03/31/22 19:32: Sodium 129 L, Potassium 5.0, BUN 8, Creatinine 0.86, Glucose 80, Magnesium 2.1, Total Bilirubin 0.7, AST 138 H, ALT 79 H, Alkaline Phosphatase 52 03/31/22 18:45: PT 10.3, INR 0.94 03/31/22 18:45: WBC 5.50, Hgb 17.2, Hct 50.3 H, Plt Count 208 Assessment And Plan - Current Problems (Diagnosis) (1) COPD exacerbation Current Visit: Yes Status: Acute (2) Thyroid mass Current Visit: Yes Status: Acute (3) Gout Current Visit: No Status: Chronic Qualifiers: Gout site: unspecified site Gout etiology: unspecified cause Chronicity: unspecified Qualified Code(s): M10.9 - Gout, unspecified (4) Abnormal chest x-ray Current Visit: Yes Status: Acute (5) Polycythemia Current Visit: Yes Status: Acute - Plan Physical Exam General: Alert, In no apparent distress HEENT: Atraumatic, PERRLA, EOMI, Sclerae nonicteric Neck: Supple, 2+ carotid pulse no bruit, No LAD, Without JVD or thyroid abnormality Respiratory: Clear to auscultation bilaterally, Normal air movement Cardiovascular: Regular rate/rhythm, Normal S1 S2 Gastrointestinal: Normal bowel sounds, No tenderness Musculoskeletal: No tenderness Integumentary: No rashes Neurological: Normal speech, Normal strength at 5/5 x4 extr, Normal tone, Normal affect Plan: Pulmonary input appreciated. Continue antibiotic Steroid and bronchodilators for COPD exacerbation. Obtain QuantiFERON gold test to rule out TB given cavitary lesion. Airborne isolation. Dr. Bautista 1 patient to follow-up in the TB clinic. Polycythemia likely related to the thyroid mass (could be thymoma). Hyponatremia resolved. Activity as tolerated.
--- NOTE | 2022-04-01 16:35 | EKG ---
Test Date: 2022-03-31 Test Time: 19:13:32 [employer]or [employer]: SAMMIE MEASUREMENT RESULTS: Intervals: Rate: 62 [place]: 172 QRSD: 94 QT: 398 QTc: 403 [place]: P: 73 [place]: 172 QRS: 83 T: 73 INTERPRETIVE STATEMENTS: Normal sinus rhythm Septal infarct, age undetermined Abnormal ECG Compared to ECG 03/09/2021 00:00:30 Myocardial infarct finding now present Electronically Signed On 04-01-22 16:34:37 CDT by Jose Cagle
[2022-04-01] MEDS: DULERA 200/5 (MOMETASONE/FORMOTEROL) INHALER IH SCH (21:00)
[2022-04-01] MEDS: predniSONE 20 MG TAB PO SCH (21:18)
[2022-04-02 04:47] LABS: Absolute Lymphocytes (CBC) 0.5 K/uL (0.7-4.9); Hematocrit 50.7 % (39.6-49.0); Lymphocytes % 5.4 % (15.3-44.8); MCV 97.7 fL (80-100); MPV 7.3 fL (7.6-11.3); RBC Red Blood Cell Count 5.18 M/uL (4.33-5.43)
[2022-04-02 05:07] LABS: Albumin 2.6 g/dL (3.4-5.0); Bilirubin Total 0.7 mg/dL (0.2-1.0); Potassium 4.3 mmol/L (3.5-5.1); Protein, Total 6.5 g/dL (6.4-8.2)
[2022-04-02 05:20] LABS: Magnesium 2.1 mg/dL (1.8-2.4); Phosphorus 2.9 mg/dL (2.5-4.9)
[2022-04-02 08:47] VITALS: BP 162/93; TEMP 98.6
--- NOTE | 2022-04-02 08:49 | P.DS ---
Admission Date: 03/31/22 Discharge Date: 04/02/22 Disposition: ROUTINE DISCHARGE Discharge Condition: FAIR Reason for Admission: COPD Exacerbation - Problems (1) COPD exacerbation Status: Acute (2) Thyroid mass Status: Acute (3) Gout Status: Chronic Qualifiers: Gout site: unspecified site Gout etiology: unspecified cause Chronicity: unspecified Qualified Code(s): M10.9 - Gout, unspecified (4) Abnormal chest x-ray Status: Acute (5) Polycythemia Status: Acute Brief History of Present Illness: Patient is a 61 year old male with history of COPD, thyroid mass, tobacco abuse, hypertension who presented to the ED with complaints of shortness of breath. Patient stated that he is homeless and does not take any of his prescribed medications because he cannot afford them. He states that he has been walking more than usual lately, which is what triggered the shortness of breath and lethargy. He was noted to be saturating 86% on RA. His labs today are significant for Na 129, AST 138, ALT 79, ddimer 577. Chest xray negative. Abdominal US negative. CTA Negative for a pulmonary embolism but showed 1 centimeter cavitary lesion right upper lobe, most likely infectious. Neoplasm can also have this appearance but is considered less likely. He was given breathing treatment, solumedrol, 1/2 L fluid, and put on supplemental O2 in ED. He reports feeling much improved. Patient admitted for further management. Hospital Course: Patient admitted to the medical floor and started on antibiotics, treated for COPD exacerbation with steroid and bronchodilators. Seen by pulmonary Dr. Bautista. TB is less likely per pulmonary. Lesion need to be monitored for progression and malignancy. QuantiFERON gold test obtained to rule out TB. Patient was weaned off oxygen and tolerated room air. His symptoms have improved Dr. Bautista [facility] Polycythemia likely related to the thyroid mass (could be thymoma). Hyponatremia resolved. Patient discharged with prednisone, inhaler and azithromycin. Vital Signs/Physical Exam: Temp Pulse Resp BP Pulse Ox 98.6 F 74 18 162/93 H 94 04/02/22 08:00 04/02/22 08:00 04/02/22 08:00 04/02/22 08:00 04/02/22 08:00 General: Alert, In no apparent distress, Oriented x3 HEENT: Mucous membr. moist/pink Neck: JVD not distended Respiratory: Clear to auscultation bilaterally, Normal air movement Cardiovascular: Regular rate/rhythm, Normal S1 S2 Gastrointestinal: Normal bowel sounds, Soft and benign, Non-distended, No tenderness Musculoskeletal: No swelling Integumentary: No rashes, No cyanosis Neurological: Normal strength at 5/5 x4 extr Lymphatics: No axilla or inguinal lymphadenopathy Laboratory Data at Discharge: WBC 9.80 K/uL (4.3-10.9) 04/02/22 04:36 Hgb 17.2 g/dL (13.6-17.9) 04/02/22 04:36 Hct 50.7 % (39.6-49.0) H 04/02/22 04:36 Plt Count 163 K/uL (152-406) 04/02/22 04:36 PT 10.3 SECONDS (9.5-12.5) 03/31/22 18:45 INR 0.94 03/31/22 18:45 Sodium 135 mmol/L (136-145) L 04/02/22 04:36 Potassium 4.3 mmol/L (3.5-5.1) D 04/02/22 04:36 BUN 12 mg/dL (7-18) 04/02/22 04:36 Creatinine 0.89 mg/dL (0.55-1.3) 04/02/22 04:36 Glucose 146 mg/dL (74-106) H 04/02/22 04:36 Phosphorus 2.9 mg/dL (2.5-4.9) 04/02/22 04:36 Magnesium 2.1 mg/dL (1.8-2.4) 04/02/22 04:36 Total Bilirubin 0.7 mg/dL (0.2-1.0) 04/02/22 04:36 AST 22 U/L (15-37) 04/02/22 04:36 ALT 46 U/L (12-78) 04/02/22 04:36 Alkaline Phosphatase 47 U/L (45-117) 04/02/22 04:36 Triglycerides 31 mg/dL (<150) 04/01/22 03:17 Cholesterol 121 mg/dL (<200) 04/01/22 03:17 HDL Cholesterol 83 mg/dL (40-60) H 04/01/22 03:17 Cholesterol/HDL Ratio 1.46 04/01/22 03:17 Home Medications: Azithromycin [Zithromax] 500 mg PO DAILY #4 tab 04/02/22 Mometasone/Formoterol [Dulera 200 Mcg-5 Mcg Inhaler] 1 puff IH BID #1 inh 04/02/22 predniSONE [Deltasone] 20 mg PO DAILY #4 tab 04/02/22 New Medications: Mometasone/Formoterol [Dulera 200 Mcg-5 Mcg Inhaler] 1 puff IH BID #1 inh predniSONE [Deltasone] 20 mg PO DAILY #4 tab Azithromycin [Zithromax] 500 mg PO DAILY #4 tab Diet: AHA Activity: Ad nam Followup: Ferdinand Bautista MD [ACTIVE - CAN ADMIT] - 1 Week (At [facility]TB clinic within 1 weeks) NONE,NONE [Primary Care Provider] - 1 Week Time spent managing pt's care (in minutes): 36
[2022-04-02] MEDS: predniSONE 20 MG TAB PO SCH (08:55)
[2022-04-02] MEDS: ENOXAPARIN 40 MG/0.4 ML SQ SCH (08:55)
[2022-04-02] MEDS: DULERA 200/5 (MOMETASONE/FORMOTEROL) INHALER IH SCH (08:55)
[2022-04-02 09:32] VITALS: O2SAT 95
== END 2022-04-02 09:57 | disposition home or self-care (01) | DRG 191 ==
LOC: ER 18:14 → ERHOLD 22:59 → 4TH 23:16
PROVIDERS: ADMIT Internal Medicine; ATTEND Internal Medicine
DX: J44.1 Chronic obstructive pulmonary disease with (acute) exacerbation (principal); E87.1 Hypo-osmolality and hyponatremia; K21.9 Gastro-esophageal reflux disease without esophagitis; M10.9 Gout, unspecified; I10 Essential (primary) hypertension; E07.9 Disorder of thyroid, unspecified; H54.62 Unqualified visual loss, left eye, normal vision right eye; D49.89 Neoplasm of unspecified behavior of other specified sites; D75.1 Secondary polycythemia; B18.2 Chronic viral hepatitis C; F17.200 Nicotine dependence, unspecified, uncomplicated; R09.02 Hypoxemia; Z59.00 Homelessness unspecified; Z00.01 Encounter for general adult medical examination with abnormal findings; Z91.14 Patient's other noncompliance with medication regimen; Z79.52 Long term (current) use of systemic steroids; Z79.82 Long term (current) use of aspirin; Z91.120 Patient's intentional underdosing of medication regimen due to financial hardship; Z79.899 Other long term (current) drug therapy; Z85.850 Personal history of malignant neoplasm of thyroid; Z20.822 Contact with and (suspected) exposure to COVID-19
CPT/HCPCS: 36415; 71045; 71275; 76705; 80048; 80053; 80061; 80076; 82805; 83735; 83880; 84100; 84443; 84484; 85025; 85379; 85610; 86480; 93005; 94640; 94760; 96374; 99285; J1650; J2920; J2930; J3475; J3535; J7030; J7040; J7512; Q9967; U0003

== ENCOUNTER 2023-05-17 10:04 | Emergency (ER) | payer OTHER ==
[2023-05-17] MEDS ORDERED: ALBUTEROL 2.5 MG/3 ML NEB SOL ONE (10:40)
[2023-05-17] MEDS ORDERED: IPRATROPIUM BROM 0.5MG/2.5ML ONE (10:40)
[2023-05-17 10:48] LABS: Absolute Lymphocytes (CBC) 1.2 K/uL (0.7-4.9); Hematocrit 49.6 % (39.6-49.0); Lymphocytes % 12.7 % (15.3-44.8); MCV 102.9 fL (80-100); MPV 7.2 fL (7.6-11.3); Platelets 207 thou/uL (152-406); RBC Red Blood Cell Count 4.82 M/uL (4.33-5.43)
[2023-05-17 10:58] LABS: Protime INR 0.93
[2023-05-17 11:08] LABS: Albumin 2.9 g/dL (3.4-5.0); Bilirubin Direct 0.4 mg/dL (0-0.2); Bilirubin Indirect, Calculated 0.7 mg/dL (0.2-0.8); Bilirubin Total 1.1 mg/dL (0.2-1.0); Magnesium 1.8 mg/dL (1.6-2.4); Potassium 3.4 mEq/L (3.5-5.1); Protein, Total 7.8 g/dL (6.4-8.2); Troponin High Sensitivity 10.6 pg/mL (<58.9)
[2023-05-17 11:27] LABS: SARS-CoV-2 Antigen Rapid Res Negative (Negative)
--- NOTE | 2023-05-17 11:45 | EDPHYS ---
[facility] Name: Bryan Hardin Age: 62 yrs Sex: Male : 1960 Arrival Date: 05/17/2023 Time: 10:04 Bed 6 Private MD: ED Physician Howard Parekh HPI: 05/17 10:51 This 62 yrs old Male presents to ER via Ambulatory with complaints of COPD sp3 Exacerbation. 10:51 62-year-old male with a history of COPD, hypertension, gout, prior thyroid cancer now sp3 presents ED with chief complaint difficulty breathing and cough for several days. Patient states that he feels like his "COPD is acting up". He denies fever, neck pain, back pain, chest pain, abdominal pain, nausea, vomiting, diarrhea, known sick contacts, travel history, any other signs or symptoms on ROS at this time.. Historical: - Allergies: 10:19 NKA; hb - Home Meds: 10:19 does not take any medication [Active]; hb - PMHx: 10:19 GERD; Gout; Hypertension; Kidney Mass; Lung mass; THYROID CANCER; hb - Immunization history:: Adult Immunizations up to date. - Social history:: Smoking status: Patient reports the use of cigarette tobacco products, smokes one-half pack cigarettes per day. ROS: 10:52 Constitutional: Negative for fever, chills, and weight loss, Eyes: Negative for injury, sp3 pain, redness, and discharge, Neck: Negative for injury, pain, and swelling, Cardiovascular: Negative for chest pain, palpitations, and edema, Abdomen/GI: Negative for abdominal pain, nausea, vomiting, diarrhea, and constipation, Back: Negative for injury and pain, MS/Extremity: Negative for injury and deformity, Skin: Negative for injury, rash, and discoloration, Neuro: Negative for headache, weakness, numbness, tingling, and seizure, Psych: Negative for depression, anxiety, suicide ideation, homicidal ideation, and hallucinations, Allergy/Immunology: Negative for hives, rash, and allergies, Endocrine: Negative for neck swelling, polydipsia, polyuria, polyphagia, and marked weight changes, Hematologic/Lymphatic: Negative for swollen nodes, abnormal bleeding, and unusual bruising, 10:52 All other systems are negative, Exam: 10:52 Constitutional: This is a well developed, well nourished patient who is awake, alert, sp3 and in no acute distress. Head/Face: Normocephalic, atraumatic. Eyes: Pupils equal round and reactive to light, extra-ocular motions intact. Lids and lashes normal. Conjunctiva and sclera are non-icteric and not injected. Cornea within normal limits. Periorbital areas with no swelling, redness, or edema. Neck: Trachea midline, no thyromegaly or masses palpated, and no cervical lymphadenopathy. Supple, full range of motion without nuchal rigidity, or vertebral point tenderness. No Meningismus. Chest/axilla: Normal chest wall appearance and motion. Nontender with no deformity. No lesions are appreciated. Cardiovascular: Regular rate and rhythm with a normal S1 and S2. No gallops, murmurs, or rubs. Normal PMI, no JVD. No pulse deficits. Abdomen/GI: Soft, non-tender, with normal bowel sounds. No distension or tympany. No guarding or rebound. No evidence of tenderness throughout. Back: No spinal tenderness. No costovertebral tenderness. Full range of motion. Skin: Warm, dry with normal turgor. Normal color with no rashes, no lesions, and no evidence of cellulitis. MS/ Extremity: Pulses equal, no cyanosis. Neurovascular intact. Full, normal range of motion. Neuro: Awake and alert, GCS 15, oriented to person, place, time, and situation. Cranial nerves II-XII grossly intact. Motor strength 5/5 in all extremities. Sensory grossly intact. Cerebellar exam normal. Normal gait. Psych: Awake, alert, with orientation to person, place and time. Behavior, mood, and affect are within normal limits. 10:52 Respiratory: Scattered wheeze noted., 10:53 ECG was reviewed by the Attending Physician. EKG demonstrates normal sinus rhythm at 75 sp3 bpm with normal intervals, normal QRS, normal axis, nonspecific diffuse ST's ST changes without evidence of acute ischemia. Vital Signs: 10:17 BP 168 / 99; Pulse 85; Resp 24; Temp 97.4(O); Pulse Ox 95% on R/A; Weight 56.7 kg; hb Height 6 ft. 1 in. ; Pain 3/10; 10:44 BP 151 / 92; Pulse 75; Resp 23; Pulse Ox 99% on Nebulizer Mask; kd3 11:32 BP 150 / 77; Pulse 92; Resp 19; Pulse Ox 97% on R/A; kd3 10:17 Body Mass Index 16.49 (56.70 kg, 185.42 cm) hb 10:17 Pain Scale: Adult hb MDM: 10:13 Patient medically screened. sp3 10:53 Data reviewed: vital signs, nurses notes, old medical records, lab test result(s), EKG, sp3 radiologic studies. 10:53 ED course: 62-year-old male with extensive PMH above now with COPD exacerbation. sp3 Differential diagnosis includes COPD, pneumonia, viral illness, influenza, COVID-19, sepsis, other infection, among others. I am not highly suspicious for CHF, acute coronary syndrome, PE, aortic pathology including dissection or aneurysm, or any other critical process at this time. Disposition pending workup and patient course. Nebs have been ordered and we will later on steroids and antibiotics as indicated.. 11:44 ED course: Chest x-ray, labs and swabs are all negative. Patient feels better after sp3 nebulizer treatment. Will administer 60 mg of Solu-Medrol IV and discharge patient home on p.o. prednisone and p.o. Zithromax.. 12 10:20 Order name: Strep sp3 05/17 10:14 Order name: Basic Metabolic Panel; Complete Time: 11:43 sp3 05/17 10:14 Order name: CBC with Diff; Complete Time: 11:43 sp3 05/17 10:14 Order name: LFT's; Complete Time: 11:43 sp3 05/17 10:14 Order name: Magnesium; Complete Time: 11:43 sp3 05/17 10:14 Order name: NT PRO-BNP; Complete Time: 11:43 sp3 05/17 10:14 Order name: PT-INR; Complete Time: 11:43 sp3 05/17 10:14 Order name: Troponin HS; Complete Time: 11:43 sp3 05/17 10:20 Order name: Flu; Complete Time: 11:43 sp3 05/17 10:20 Order name: SARS RAPID; Complete Time: 11:43 sp3 05/17 11:01 Order name: Throat Culture EDMS 05/17 10:14 Order name: XRAY Chest (1 view) sp3 05/17 10:14 Order name: EKG; Complete Time: 10:14 sp3 05/17 10:14 Order name: Cardiac monitoring; Complete Time: 10:42 sp3 05/17 10:14 Order name: EKG - Nurse/Tech; Complete Time: 10:24 sp3 05/17 10:14 Order name: IV Saline Lock; Complete Time: 10:42 sp3 05/17 10:14 Order name: Labs collected and sent; Complete Time: 10:42 sp3 05/17 10:14 Order name: O2 Per Protocol; Complete Time: 10:42 sp3 05/17 10:14 Order name: O2 Sat Monitoring; Complete Time: 10:42 sp3 Administered Medications: 10:42 Drug: DuoNeb Nebulize (3:1) (2.5 mg - 0.5 mg) 3 ml Nebulizer once Route: Nebulizer; kd3 12:05 Follow up: Response: No adverse reaction iw 12:04 Drug: MethylPrednisoLONE IVP 60 mg IVP once Route: IVP; Site: right wrist; iw 12:05 Follow up: Response: No adverse reaction iw Disposition Summary: 05/17/23 11:45 Discharge Ordered Notes: Location: Home sp3 Condition: Stable sp3 Diagnosis - COPD exacerbation sp3 Followup: sp3 - With: Private Physician - When: Upon discharge from the Emergency Department - Reason: Continuance of care Discharge Instructions: - Discharge Summary Sheet sp3 - Living With COPD sp3 Forms: - Medication Reconciliation Form sp3 - Thank You Letter sp3 - Antibiotic Education sp3 - Prescription Opioid Use sp3 - Patient Portal Instructions sp3 - Leadership Thank You Letter sp3 Prescriptions: - Combivent Respimat 20-100 mcg/actuation Inhalation Mist - administer 2 puff INHALATION route every 20 minutes not to exceed 9 doses per sp3 initial 3 hr period; 2 Applicator; Refills: 0, Product Selection Permitted - Zithromax Z-Tra 250 mg Oral Tablet - take 1 tablet ORAL route as directed for 5 days Day 1 - take two (2) tablets sp3 one time. Day 2, 3, 4 , 5 take one (1) tablet once daily.; 6 tablet; Refills: 0, Product Selection Permitted - Prednisone 20 mg Oral Tablet - take 2 tablets ORAL route once daily for 5 days; 10 tablet; Refills: 0, Product sp3 Selection Permitted Signatures: Dispatcher [facility] Tyra Fan, RN RN iw Cara Sun, RN RN Howard Parekh MD MD sp3 Danielle Grace RN RN kd3
--- NOTE | 2023-05-17 11:45 | ER ---
Nurse's Notes [facility] Name: Bryan Hardin Age: 62 yrs Sex: Male : 1960 Arrival Date: 05/17/2023 Time: 10:04 Bed 6 Private MD: Diagnosis: COPD exacerbation Presentation: 05/17 10:17 Chief complaint: SOB and productive cough x 2-3 days. Hx of COPD and thyroid cancer, hb not on any medications or chemo. Coronavirus screen: Client presents with at least one sign or symptom that may indicate coronavirus-19. Provider contacted for isolation considerations. Ebola Screen: No symptoms or risks identified at this time. Initial Sepsis Screen: Does the patient meet any 2 criteria? No. Patient's initial sepsis screen is negative. Does the patient have a suspected source of infection? No. Patient's initial sepsis screen is negative. Risk Assessment: Do you want to hurt yourself or someone else? Patient reports no desire to harm self or others. Onset of symptoms was May 15, 2023. 10:17 Method Of Arrival: Ambulatory hb 10:17 Acuity: ANTONINO 3 hb Historical: - Allergies: 10:19 NKA; hb - Home Meds: 10:19 does not take any medication [Active]; hb - PMHx: 10:19 GERD; Gout; Hypertension; Kidney Mass; Lung mass; THYROID CANCER; hb - Immunization history:: Adult Immunizations up to date. - Social history:: Smoking status: Patient reports the use of cigarette tobacco products, smokes one-half pack cigarettes per day. Screenin:41 [facility] ED Fall Risk Assessment (Adult) History of falling in the last 3 months, kd3 including since admission No falls in past 3 months (0 pts) Confusion or Disorientation No (0 pts) Intoxicated or Sedated No (0 pts) Impaired Gait Yes (1 pt) Mobility Assist Device Used No (0 pt) Altered Elimination No (0 pt) Score/Fall Risk Level 3 or more points = High Risk Oriented to surroundings, Maintained a safe environment, Educated pt \T\ family on fall prevention, incl call for assistance when getting out of bed, Assessed \T\ reinforced patient's understanding of fall precautions, Provided non-skid footwear, Hourly rounding (assess needs \T\ fall precautionary measures) done, Used ambulatory aids as needed (educated on \T\ assisted with), Implemented a Fall Risk Plan of Care. Abuse screen: Denies threats or abuse. Denies injuries from another. Nutritional screening: No deficits noted. Tuberculosis screening: No symptoms or risk factors identified. Assessment: 10:41 General: Appears uncomfortable, Behavior is calm, cooperative. Pain: Denies pain. kd3 Neuro: Level of Consciousness is awake, alert, obeys commands, Oriented to person, place, time, situation. Cardiovascular: Patient's skin is warm and dry. Respiratory: Airway is patent Trachea midline Respiratory effort is even, unlabored, Breath sounds with wheezes bilaterally. 11:33 Reassessment: Patient is alert, oriented x 3, equal unlabored respirations, skin kd3 warm/dry/pink. Patient states feeling better. Patient states symptoms have improved. Vital Signs: 10:17 BP 168 / 99; Pulse 85; Resp 24; Temp 97.4(O); Pulse Ox 95% on R/A; Weight 56.7 kg; hb Height 6 ft. 1 in. ; Pain 3/10; 10:44 BP 151 / 92; Pulse 75; Resp 23; Pulse Ox 99% on Nebulizer Mask; kd3 11:32 BP 150 / 77; Pulse 92; Resp 19; Pulse Ox 97% on R/A; kd3 10:17 Body Mass Index 16.49 (56.70 kg, 185.42 cm) hb 10:17 Pain Scale: Adult hb ED Course: 10:07 Patient arrived in ED. mg5 10:07 Howard Parekh MD is Attending Physician. sp3 10:13 Tyra Graham, RN is Primary Nurse. iw 10:19 Triage completed. hb 10:19 Arm band placed on. hb 10:42 No provider procedures requiring assistance completed. Inserted saline lock: 20 gauge kd3 in left forearm, using aseptic technique. Blood collected. 10:42 SARS RAPID Sent. kd3 10:42 Flu Sent. kd3 10:42 Strep Sent. kd3 10:42 Basic Metabolic Panel Sent. kd3 10:42 CBC with Diff Sent. kd3 10:42 LFT's Sent. kd3 10:43 Magnesium Sent. kd3 10:43 NT PRO-BNP Sent. kd3 10:43 PT-INR Sent. kd3 10:43 Troponin HS Sent. kd3 10:46 XRAY Chest (1 view) In Process Unspecified. EDMS 12:05 Patient has correct armband on for positive identification. iw 12:06 IV discontinued, intact, bleeding controlled, No redness/swelling at site. Pressure iw dressing applied. Administered Medications: 10:42 Drug: DuoNeb Nebulize (3:1) (2.5 mg - 0.5 mg) 3 ml Nebulizer once Route: Nebulizer; kd3 12:05 Follow up: Response: No adverse reaction iw 12:04 Drug: MethylPrednisoLONE IVP 60 mg IVP once Route: IVP; Site: right wrist; iw 12:05 Follow up: Response: No adverse reaction iw Medication: 10:41 VIS not applicable for this client. kd3 Outcome: 11:45 Discharge ordered by . katie 12:06 Discharged to home ambulatory, iw 12:06 Condition: good 12:06 Discharge instructions given to patient, Instructed on discharge instructions, follow up and referral plans. 12:07 Patient left the ED. iw Signatures: Dispatcher [employer] Tyra Fan RN RN iw Cara Sun RN RN Howard Harris MD MD sp3 Danielle Grace RN RN kd3 Suzanne Daley mg5
--- NOTE | 2023-05-17 11:58 | RAD REPORT ---
EXAM DESCRIPTION: [place] Single View05/17/2023 10:45 am CLINICAL HISTORY: Cough COMPARISON: 2021 FINDINGS: Small right upper lobe opacity Main lungs appear clear. Old rib fractures. Heart is normal size. Lungs are hyperaerated IMPRESSION: Small right upper lobe opacity may represent pneumonia/atypical infection or neoplasm. A CT chest is recommended
[2023-05-17] MEDS ORDERED: METHYLPREDNISOLONE 40 MG INJ ONE (12:08)
[2023-05-17 12:17] VITALS: TEMP 97.4
[2023-05-17 12:30] VITALS: BP 150/77; O2SAT 97
--- NOTE | 2023-05-21 13:58 | EKG ---
Test Date: 2023-05-17 Test Time: 10:20:41 Coil Tier: CON MEASUREMENT RESULTS: Intervals: Rate: 75 IA: 158 QRSD: 90 QT: 370 QTc: 413 [place]: P: 63 IA: 158 QRS: 44 T: 48 INTERPRETIVE STATEMENTS: Normal sinus rhythm Normal ECG Compared to ECG 03/31/2022 19:13:32 Myocardial infarct finding no longer present Electronically Signed On 05-21-23 13:43:53 SQE by Jose Cagle
== END 2023-05-17 12:07 | disposition home or self-care (01) ==
LOC: ER 10:04
DX: J44.1 Chronic obstructive pulmonary disease with (acute) exacerbation (principal); I10 Essential (primary) hypertension; F17.210 Nicotine dependence, cigarettes, uncomplicated; Z11.52 Encounter for screening for COVID-19
CPT/HCPCS: 93005; 87070; 85025; 80048; 36415; 83735; 85610; 80076; 87081; 84484; 83880; 87804 ×2; 71045; 94640; 96374; 99285; 87811; J7613; J7644; J2920

== ENCOUNTER → 2023-06-26 | Emergency (ER) | payer SELFPAY ==
[~2023-06-26] MED LIST: ALBUTEROL 2.5 MG/3 ML NEB SOL ONE; IPRATROPIUM BROM 0.5MG/2.5ML ONE; METHYLPREDNISOLONE 125 MG INJ ONE
[2023-06-26 09:28] LABS: Absolute Lymphocytes (CBC) 1.7 K/uL (0.7-4.9); Hematocrit 50.7 % (39.6-49.0); Lymphocytes % 25.3 % (15.3-44.8); MCV 102.8 fL (80-100); MPV 7.2 fL (7.6-11.3); Platelets 236 thou/uL (152-406); RBC Red Blood Cell Count 4.94 M/uL (4.33-5.43)
--- NOTE | 2023-06-26 09:33 | RAD REPORT ---
EX[facility] DES[facility] 9[facility]24 am CLINICAL HISTORY: COPD COMPARISON: Chest Single View dated 05/17/2023; Chest Single View dated 03/31/2022; Chest Single View dated 06/06/2021; Chest Single View dated 03/08/2021 TECHNIQUE: Portable AP view of the chest. FINDINGS: The lungs are clear. No pneumothorax or effusion. The cardiomediastinal contours are unre markable. IMPRESSION: No acute cardiopulmonary process.
[2023-06-26 09:48] LABS: Albumin 3.3 g/dL (3.4-5.0); Bilirubin Direct 0.4 mg/dL (0-0.2); Bilirubin Indirect, Calculated 0.6 mg/dL (0.2-0.8); Magnesium 1.6 mg/dL (1.6-2.4); Potassium 3.6 mEq/L (3.5-5.1); Protein, Total 7.9 g/dL (6.4-8.2); Troponin High Sensitivity 11.6 pg/mL (<58.9)
--- NOTE | 2023-06-26 10:18 | ER ---
Nurse's Notes [facility] Name: Bryan Hardin Age: 62 yrs Sex: Male : 1960 Arrival Date: 06/26/2023 Time: 09:02 Bed 4 Private MD: Diagnosis: COPD/ Chronic obstructive pulmonary disease with (acute) exacerbation Presentation: 06/26 09:10 Chief complaint: Patient states: Cough/SOB since last night. Couldn't afford inhaler ll1 prescribed to him last visit. Coronavirus screen: Client denies travel out of the [place] in the last 14 days. cough unrelated to allergies, difficulty breathing. Ebola Screen: Patient denies travel to an Ebola-affected area in the 21 days before illness onset. Initial Sepsis Screen: Does the patient meet any 2 criteria? No. Patient's initial sepsis screen is negative. Does the patient have a suspected source of infection? Yes: Productive cough/pneumonia. Risk Assessment: Do you want to hurt yourself or someone else? Patient reports no desire to harm self or others. Onset of symptoms was June 25, 2023. 09:10 Method Of Arrival: Ambulatory ll1 09:10 Acuity: ANTONINO 3 ll1 Triage Assessment: : Respiratory: the patient has mild shortness of breath. ap3 10:27 Respiratory: Onset: The symptoms/episode began/occurred yesterday. ap3 Historical: - Allergies: 09:10 NKA; ll1 - PMHx: 09:10 GERD; Gout; Hypertension; Kidney Mass; Lung mass; THYROID CANCER; ll1 - Immunization history:: Adult Immunizations up to date. - Social history:: Smoking status: Patient/guardian denies using tobacco. Screenin: [facility] ED Fall Risk Assessment (Adult) History of falling in the last 3 months, ap3 including since admission No falls in past 3 months (0 pts). Abuse screen: Denies threats or abuse. Nutritional screening: No deficits noted. Tuberculosis screening: No symptoms or risk factors identified. Assessment: 09:16 General: Appears in no apparent distress. Behavior is calm, cooperative, appropriate ap3 for age. Neuro: Level of Consciousness is awake, alert, obeys commands, Oriented to person, place, time, situation, Appropriate for age. Cardiovascular: Patient's skin is warm and dry. Respiratory: Reports shortness of breath Airway is patent Respiratory effort is even, unlabored. 10:27 Pain: Denies pain. Cardiovascular: Rhythm is regular. Respiratory: Breath sounds are ap3 clear. Vital Signs: 09:10 BP 172 / 102; Pulse 105; Resp 18; Temp 98.8; ll1 09:20 Pulse 89; Pulse Ox 98% on R/A; ap3 09:56 BP 150 / 91; Pulse 74; Pulse Ox 98% on R/A; ap3 ED Course: 09:04 Patient arrived in ED. rg4 09:05 Justne Mcfarland MD is Attending Physician. rt 09:07 China Grijalva, RN is Primary Nurse. ap3 09:10 Arm band placed on Patient placed in an exam room, on a stretcher. ll1 09:12 Triage completed. ll1 09:17 Patient has correct armband on for positive identification. Bed in low position. Call ap3 light in reach. Side rails up X 1. 09:17 Inserted saline lock: 20 gauge in right antecubital area, using aseptic technique. ap3 Blood collected. 09:25 XRAY Chest (1 view) In Process Unspecified. EDMS 10:17 Ildefonso Parekh DO is Referral Physician. rt 10:27 Provided Education on: discharge instructions. ap3 10:27 No provider procedures requiring assistance completed. IV discontinued, intact, ap3 bleeding controlled, No redness/swelling at site. Pressure dressing applied. Administered Medications: 09:35 Drug: MethylPrednisoLONE IVP 125 mg IVP once Route: IVP; Site: right antecubital; ap3 10:28 Follow up: Response: No adverse reaction ap3 09:35 Drug: DuoNeb Nebulize (3:1) (2.5 mg - 0.5 mg) 3 ml Nebulizer once Route: Nebulizer; ap3 10:27 Follow up: Response: No adverse reaction ap3 Medication: 10:27 VIS not applicable for this client. ap3 Outcome: 10:17 Discharge ordered by . rt 10:27 Discharged to home ambulatory, ap3 10:27 Condition: good 10:27 Discharge instructions given to patient, Instructed on discharge instructions, follow up and referral plans. Demonstrated understanding of instructions, follow-up care, medications, Prescriptions given X 2, 10:28 Patient left the ED. ap3 Signatures: Dispatcher [employer] EDMS Sindi Arcos rg4 China Grijalva RN RN ap3 Emil Rios RN RN ll1 Justen Mcfarland MD MD rt
--- NOTE | 2023-06-26 10:18 | EDPHYS ---
Physician Documentation [facility] Name: Bryan Hardin Age: 62 yrs Sex: Male : 1960 Arrival Date: 06/26/2023 Time: 09: Bed 4 Private MD: ED Physician Justen Mcfarland HPI: 06/26 09:23 This 62 yrs old Male presents to ER via Ambulatory with complaints of rt Breathing Difficulty. 09:23 Patient with history of COPD presents to the ED with breathing difficulty starting last rt night. He states he has been coughing up mucus. He states that he does not have any breathing treatments at home as he cannot afford them. He denies chest pain, fevers, other acute complaints, symptoms are moderate in severity, no other aggravating or alleviating factors.. Historical: - Allergies: : NKA; ll1 - PMHx: : GERD; Gout; Hypertension; Kidney Mass; Lung mass; THYROID CANCER; ll1 - Immunization history:: Adult Immunizations up to date. - Social history:: Smoking status: Patient/guardian denies using tobacco. ROS: 09:23 Constitutional: Negative for fever, chills, and weight loss, Cardiovascular: Negative rt for chest pain, palpitations, and edema, Abdomen/GI: Negative for abdominal pain, nausea, vomiting, diarrhea, and constipation, MS/Extremity: Negative for injury and deformity, Skin: Negative for injury, rash, and discoloration, Neuro: Negative for headache, weakness, numbness, tingling, and seizure, Psych: Negative for depression, anxiety, suicide ideation, homicidal ideation, and hallucinations, :23 Respiratory: Positive for cough, shortness of breath, wheezing, Exam: 09:23 Constitutional: This is a well developed, well nourished patient who is awake, alert, rt and in no acute distress. Head/Face: Normocephalic, atraumatic. Chest/axilla: Normal chest wall appearance and motion. Nontender with no deformity. No lesions are appreciated. Cardiovascular: Regular rate and rhythm with a normal S1 and S2. No gallops, murmurs, or rubs. Normal PMI, no JVD. No pulse deficits. Abdomen/GI: Soft, non-tender, with normal bowel sounds. No distension or tympany. No guarding or rebound. No evidence of tenderness throughout. Skin: Warm, dry with normal turgor. Normal color with no rashes, no lesions, and no evidence of cellulitis. MS/ Extremity: Pulses equal, no cyanosis. Neurovascular intact. Full, normal range of motion. Neuro: Awake and alert, GCS 15, oriented to person, place, time, and situation. Cranial nerves II-XII grossly intact. Motor strength 5/5 in all extremities. Sensory grossly intact. Cerebellar exam normal. Normal gait. Psych: Awake, alert, with orientation to person, place and time. Behavior, mood, and affect are within normal limits. 09:23 Respiratory: Wheezes heard on all lung zee, no respiratory distress, 09:29 ECG was reviewed by the Attending Physician. rt Vital Signs: 09:10 BP 172 / 102; Pulse 105; Resp 18; Temp 98.8; ll1 09:20 Pulse 89; Pulse Ox 98% on R/A; ap3 09:56 BP 150 / 91; Pulse 74; Pulse Ox 98% on R/A; ap3 MDM: 09:06 Patient medically screened. rt 10:18 Differential diagnosis: Pneumonia, pneumothorax, COPD, CHF. Data reviewed: vital signs, rt nurses notes, lab test result(s), EKG, radiologic studies. I considered the following discharge prescriptions or medication management in the emergency department Medications were administered in the Emergency Department. See MAR. Independent interpretation of the following test(s) in the Emergency Department X-Ray: My interpretation is No consolidation seen on interpretation of x-ray images. Test considered but Not performed: CT: Low suspicion for pulmonary embolism, CT angiogram not indicated. Counseling: I had a detailed discussion with the patient and/or guardian regarding the historical points, exam findings, and any diagnostic results supporting the discharge/admit diagnosis, lab results, radiology results, the need for outpatient follow up, to return to the emergency department if symptoms worsen or persist or if there are any questions or concerns that arise at home. Response to treatment: the patient's symptoms have markedly improved after treatment. 06/26 09:14 Order name: Basic Metabolic Panel; Complete Time: 09:51 rt 06/26 09:14 Order name: CBC with Diff; Complete Time: 09:33 rt 06/26 09:14 Order name: LFT's; Complete Time: 09:51 rt 06/26 09:14 Order name: Magnesium; Complete Time: 09:51 rt 06/26 09:14 Order name: NT PRO-BNP; Complete Time: 09:51 rt 06/26 09:14 Order name: Troponin HS; Complete Time: 09:51 rt 06/26 09:14 Order name: XRAY Chest (1 view); Complete Time: 09:33 rt 06/26 09:14 Order name: EKG; Complete Time: 09:14 rt 06/26 09:14 Order name: Cardiac monitoring; Complete Time: 09:29 rt 06/26 09:14 Order name: EKG - Nurse/Tech; Complete Time: 09:29 rt 06/26 09:14 Order name: IV Saline Lock; Complete Time: 09:17 rt 06/26 09:14 Order name: Labs collected and sent; Complete Time: 09:29 rt 06/26 09:14 Order name: O2 Per Protocol; Complete Time: 09:17 rt 06/26 09:14 Order name: O2 Sat Monitoring; Complete Time: 09:17 rt EC:29 Rate is 74 beats/min. Rhythm is regular, Normal Sinus Rhythm with No ectopy. QRS [place] rt is Normal. NE interval is normal. QRS interval is normal. QT interval is normal. No Q waves. T waves are Normal. No ST changes noted. Interpreted by me. Administered Medications: 09:35 Drug: MethylPrednisoLONE IVP 125 mg IVP once Route: IVP; Site: right antecubital; ap3 10:28 Follow up: Response: No adverse reaction ap3 09:35 Drug: DuoNeb Nebulize (3:1) (2.5 mg - 0.5 mg) 3 ml Nebulizer once Route: Nebulizer; ap3 10:27 Follow up: Response: No adverse reaction ap3 Disposition Summary: 06/26/23 10:17 Discharge Ordered Notes: Location: Home rt Problem: an acute exacerbation rt Symptoms: have improved rt Condition: Stable rt Diagnosis - COPD/ Chronic obstructive pulmonary disease with (acute) exacerbation rt Followup: rt - With: Ildefonso Parekh DO - When: 2 - 3 days - Reason: Discharge Instructions: - Discharge Summary Sheet rt - Chronic Obstructive Pulmonary Disease rt Forms: - Medication Reconciliation Form rt - Thank You Letter rt - Antibiotic Education rt - Prescription Opioid Use rt - Patient Portal Instructions rt - Leadership Thank You Letter rt Prescriptions: - albuterol sulfate 90 mcg/actuation Inhalation HFA Aerosol Inhaler - inhale 4 inhalation INHALATION route every 4 hours; 2 Each; Refills: 0, Product rt Selection Permitted - Prednisone 20 mg Oral Tablet - take 2 tablets ORAL route once daily for 5 days; 10 tablet; Refills: 0, Product rt Selection Permitted Signatures: Dispatcher [employer] China Matthews RN RN ap3 Emil Rios RN RN ll1 Justen Mcfarland MD MD rt
[2023-06-26 10:41] VITALS: BP 150/91; TEMP 98.8; O2SAT 98
== END ==
LOC: ER 09:02
DX: J44.1 Chronic obstructive pulmonary disease with (acute) exacerbation (principal)
CPT/HCPCS: 36415; 71045; 80048; 80076; 83735; 83880; 84484; 85025; 93005; J2930; J7613; J7644

== ENCOUNTER → 2023-07-27 | Emergency (ER) | payer OTHER, SELFPAY ==
--- OUTSIDE RECORDS SUMMARY | 2023-07-27 13:19 | XMS REPORT | Continuity of Care Document ---
Author Name Unknown Address [address] [facility] th[address] Address [address] [facility] [place] [address] Care Team Providers Care Truck Sales Representative Name Role Phone PHIL TRACIE Attending Clinician Unavailable JUSTIN CAPUTO Attending Clinician UnavailGIOVANA Yanes Attending Clinician Unavailable Payers Payer Name Policy Type Policy Number Effective Date Expirati on Date Source [employer] MP [facility] [employer] 5 O [employer] 94 [place] 9 [id number] 2023 00:00:00 Problems Condition Name Condition Details Condition Category Status Onset Date Resolution Date Last Treatment Date Treating Clinician Comments Source Primary hypertensi on Primary hypertensi on Disease Active 07-23 00:00: 00 Jessica trejo COPD (chronic obstructiv e pulmonary disease) (multi HCC) COPD (chronic obstructiv e pulmonary disease) (multi HCC) Disease Active 07-23 00:00: 00 Jessica trejo Thyroid cancer (multi HCC) Thyroid cancer (multi HCC) Disease Active 07-23 00:00: 00 Jessica trejo Social History Social Habit Start Date Stop Date Quantity Comments Source History of tobacco use Cigarette Smoker Jessica mcgrath - External Sexual orientation Majo Cherry - External Tobacco use and exposure 2023-07-23 00:00:00 2023-07-23 00:00:00 Former smokeless tobacco user Jessica Cherry - External History of Social function 2023-07-23 00:00:00 2023-07-23 00:00:00 Jessica Seybold - External Sex Ass[birth year] At 1960 00:00:00 1960 00:00:00 Jessica Beatty Smoking Status Start Date Stop Date Source Ex-smoker 2023-07-23 00:00:00 2023-07-23 00:00:00 Majo wally Beatty Medications Ordered Medication Name Filled Medication Name Start Date Stop Date Current Medication? Ordering Clinician Indication Dosage Frequency Signature (SIG) Comments Components Source Lisinopril 10 MG oral Tablet 07-23 14:40: 27 07-23 00:00 :00 No 10mg Take 1 tablet (10 mg total) by mouth daily. Jessica trejo Allopurinol 300 MG oral Tablet 07-23 13:55: 58 Yes 300mg Take 1 tablet (300 mg total) by mouth daily. Jessica trejo Lisinopril 10 MG oral Tablet 07-23 00:00: 00 Yes [id number] 10mg Take 1 tablet (10 mg total) by mouth daily. Jessica trejo Budesonide- Formoterol Fumarate (Symbicort) 160-4.5 MCG/ACT inhalation Aerosol 07-23 00:00: 00 Yes [id number] 2{puff} Inhale 2 puffs into the lungs 2 times daily. Jessica trejo Albuterol HFA 108 (90 Base) MCG/ACT IN AERS 07-13 00:00: 00 Yes INHALE 4 PUFFS BY MOUTH EVERY 4 HOURS Jessica trejo Immunizations Ordered Immunization Name Filled Immunization Name Date Status Comments Source Hepatitis B, Adolescent Or Pediatric Unknown Completed Jessica Beatty Hepatitis B, Adult (3 dose) Unknown Completed Jessica Beatty Hepatitis B, Adult (3 dose) Unknown Completed Jessica Beatty Vital Signs Vital Name Observation Time Observation Value Comments S ourlinette Systolic blood pressure 2023-07-23 19:56:00 154 mm[Hg] Jessica grewal - External Diastolic blood pressure 2023-07-23 19:56:00 88 mm[Hg] Jessica grewal - External Heart rate 2023-07-23 19:50:00 78 /min Meloyd Cherry - External Body temperature 2023-07-23 19:50:00 36.61 Sandi Jessica Cherry - External Respiratory rate 2023-07-23 19:50:00 18 /min Jessica Murilloleslieramila - External Body height 2023-07-23 19:50:00 185.4 cm Maritza Cavanaughold - External Body weight 2023-07-23 19:50:00 55.963 kg Maritza castillo Seybold - External BMI 2023-07-23 19:50:00 16.28 kg/m2 Maritza Cherry - External Oxygen saturation in Arterial blood by Pulse oximetry 2023-07-23 19:50:00 98 /min Jessica Aidee ld - External Encounters Start Date/Time End Date/Time Encounter Type Admission Type Attending [facility] Care Department Encounter ID Source 2023-08-30 10:00:00 2023-08-30 10:00:00 Outpatient TRACIE VILLARREAL [id number] Jessica Cherry 2023-08-14 09:30:00 2023-08-14 09:30:00 Outpatient JUSTIN CAPUTO [id number] Jessica Cherry 2023-08-12 13:00:00 2023-08-12 13:00:00 Outpatient JESSICA WARD [id number] Jessica Cherry 2023-08-01 10:00:00 2023-08-01 10:00:00 Outpatient GIOVANA VAIL [id number] Jessica Cherry 2023-07-23 14:30:00 2023-07-23 14:30:00 Outpatient JUSTIN CAPUTO [id number] Jessica Cherry Notes Date/Time Note Provider Source 2023-07-23 13:56:04 [id number] T13:56:04 Chief ComplaintPatient presents withNew PatientEstablish CareWants to follow up on COPDPaula L Loren, LVN [id number] [id number]:57:57Nurse [id number] for patient [id number] NoteLNNARRATIVEFormatted C-CDA narrative textAscension Northeast [facility] [facility] [id number] [id number] [facility]"
--- NOTE | 2023-07-27 14:25 | RAD REPORT ---
EXAM DESCRIPTION: RAD - Chest Single View - 07/27/2023 2:18 pm CLINICAL HISTORY: COPD COMPARISON: Chest Single View dated 06/26/2023; Chest Single View dated 05/17/2023; Chest Single View dated 03/31/2022; Chest Single View dated 06/06/2021 FINDINGS: Lines: None. Lungs: No evidence of edema or pneumonia. Pleural: No significant pleural effusions or pneumothorax. Cardiac: The heart size is within normal limits. Mediastinum: Within normal limits. Bones: No acute fractures. Remote left-sided rib fractures. Other: None IMPRESSION: No acute cardiopulmonary disease.
[2023-07-27 14:56] LABS: SARS-CoV-2 Antigen Rapid Res Negative (Negative)
--- NOTE | 2023-07-27 15:04 | ER ---
Nurse's Notes [facility] Name: Bryan Hardin Age: 62 yrs Sex: Male : 1960 Arrival Date: 07/27/2023 Time: 13:16 Bed 19 Private MD: Diagnosis: COPD/ Chronic obstructive pulmonary disease with (acute) exacerbation Presentation: 07/27 13:29 Chief complaint: Patient states: Shortness of breath, worse today, out of inhalers for nj1 about a week, waiting for pharmacy to fill in his prescriptions. Coronavirus screen: Vaccine status: Patient reports being unvaccinated. Ebola Screen: Patient denies travel to an Ebola-affected area in the 21 days before illness onset. Initial Sepsis Screen:. Risk Assessment: Do you want to hurt yourself or someone else? Patient reports no desire to harm self or others. Onset of symptoms was July 2023. 13:29 Method Of Arrival: Ambulatory [facility] 13:29 Acuity: ANTONINO 3 nj1 Triage Assessment: 13:30 General: Appears distressed, Behavior is calm, cooperative, appropriate for age. Pain: bp Denies pain. Respiratory: Reports shortness of breath Onset: The symptoms/episode began/occurred at an unknown time. the patient has mild shortness of breath. Historical: - Allergies: 13:31 NKA; nj1 - PMHx: 13:31 GERD; Gout; Hypertension; Kidney Mass; Lung mass; THYROID CANCER; nj1 13:32 Chronic obstructive lung disease; nj1 - Immunization history:: Client reports having NOT received the Covid vaccine. - Social history:: Smoking status: Patient denies any tobacco usage or history of. Screenin:[facility] ED Fall Risk Assessment (Adult) History of falling in the last 3 months, bp including since admission No falls in past 3 months (0 pts). Abuse screen: Denies threats or abuse. Denies injuries from another. Nutritional screening: No deficits noted. Tuberculosis screening: No symptoms or risk factors identified. Assessment: 13:30 General: SEE TRIAGE NOTE. Cardiovascular: Rhythm is sinus rhythm. Respiratory: Airway bp is patent Respiratory effort is even, labored, Breath sounds with wheezes bilaterally. 15:09 Reassessment: Patient appears in no apparent distress at this time. Patient and/or hb family updated on plan of care and expected duration. Pain level reassessed. Patient is alert, oriented x 3, equal unlabored respirations, skin warm/dry/pink. Vital Signs: 13:29 BP 148 / 77; Pulse 93; Resp 19; Temp 98.5; Pulse Ox 94% on R/A; Weight 54.43 kg; Height bp 6 ft. 1 in. ; 13:29 Body Mass Index 15.83 (54.43 kg, 185.42 cm) bp ED Course: 13:25 Patient arrived in ED. ts1 13:27 Elisa Bull FNP-C is [facility]. kb 13:27 Jcarlos Torrez MD is Attending Physician. kb 13:31 Triage completed. nj1 13:32 Arm band placed on left wrist. nj1 13:41 Tian Haynes, RN is Primary Nurse. bp 13:51 Patient has correct armband on for positive identification. bp 14:20 Chest Single View XRAY In Process Unspecified. EDMS 15:09 No provider procedures requiring assistance completed. Patient did not have IV access hb during this emergency room visit. Administered Medications: 13:50 Drug: MethylPREDNISolone Sodium Succinate IM 125 mg IM once Route: IM; Site: right bp deltoid; 14:40 Follow up: Response: No adverse reaction bp 13:50 Drug: Albuterol Inhalation 2.5 mg Inhalation once Route: Inhalation; bp 13:50 Drug: Ipratropium Inhalation Aerosol 0.5 mg Inhalation once Route: Inhalation; bp Medication: 15:10 VIS not applicable for this client. hb Outcome: 15:03 Discharge ordered by MD. kb 15:09 Discharged to home ambulatory, hb 15:09 Condition: stable 15:09 Discharge instructions given to patient, Instructed on discharge instructions, follow up and referral plans. medication usage, Demonstrated understanding of instructions, follow-up care, medications, 15:10 Patient left the ED. hb Signatures: Dispatcher [employer] EDMS Elisa Bull FNP-C FNP-Ckb Baxter, Heather, RN RN Tian Haynes, RN Danya Bellamy RN RN nj1 Karen Aleman PAS PAS ts1 Corrections: (The following items were deleted from the chart) 14:40 13:29 BP 148 / 77; Pulse 93bpm; Resp 19bpm; Pulse Ox 94% RA; 54.43 kg; Height 6 ft. 1 bp in.; BMI: 15.8; nj1
--- NOTE | 2023-07-27 15:04 | EDPHYS ---
Physician Documentation [facility] Name: [place]in Age: 62 yrs Sex: Male : 1960 Arrival Date: 07/27/2023 Time: 13:16 Bed 19 Private MD: ED Physician Jcarlos Torrez HPI: 07/27 14:09 This 62 yrs old Male presents to ER via Ambulatory with complaints of kb Shortness Of Breath. 14:09 Patient is a 62-year-old male with a history of COPD who reports shortness of breath kb that started about 5 days ago. States he has been out of his inhaler for 2 weeks and [facility] not been able to fill them. States he has been to his PCP for refills. Reports he just needed a breathing treatment while he was here with his significant other to get him through until he can olive picker his prescription. Historical: - Allergies: 13:31 NKA; nj1 - PMHx: 13:31 GERD; Gout; Hypertension; Kidney Mass; Lung mass; THYROID CANCER; nj1 13:32 Chronic obstructive lung disease; nj1 - Immunization history:: Client reports having NOT received the Covid vaccine. - Social history:: Smoking status: Patient denies any tobacco usage or history of. ROS: 14:09 Constitutional: Negative for fever, chills, and weight loss, kb 14:09 Respiratory: Positive for shortness of breath, 14:09 All other systems are negative, Exam: 14:09 Constitutional: This is a well developed, well nourished patient who is awake, alert, kb and in no acute distress. Head/Face: Normocephalic, atraumatic. ENT: Moist Mucous membranes Cardiovascular: Regular rate Abdomen/GI: Soft, non-tender. No distention Skin: Warm, dry with normal turgor. Normal color. MS/ Extremity: Pulses equal, no cyanosis. Neurovascular intact. Full, normal range of motion. Neuro: Awake and alert, GCS 15, oriented to person, place, time, and situation. Moves all extremities. Normal gait. 14:09 Respiratory: mild respiratory distress is noted, Respirations: labored breathing, that is mild, Breath sounds: wheezing: expiratory that is mild, is scattered, Vital Signs: 13:29 BP 148 / 77; Pulse 93; Resp 19; Temp 98.5; Pulse Ox 94% on R/A; Weight 54.43 kg; Height bp 6 ft. 1 in. ; 13:29 Body Mass Index 15.83 (54.43 kg, 185.42 cm) bp MDM: 13:27 Patient medically screened. kb 14:10 Differential diagnosis: Chronic Obstructive Pulmonary Disease pneumonia. Data reviewed: kb vital signs, nurses notes. 14:58 Antibiotic administration: Not indicated. I considered the following discharge kb prescriptions or medication management in the emergency department I discussed and recommended Over The Counter medications, Antibiotics: At this time antibiotics are not recommended, Antivirals: At this time, antivirals are not recommended. Counseling: I had a detailed discussion with the patient and/or guardian regarding the historical points, exam findings, and any diagnostic results supporting the discharge/admit diagnosis, lab results, radiology results, the need for outpatient follow up, a family practitioner, to return to the emergency department if symptoms worsen or persist or if there are any questions or concerns that arise at home. 15:03 ED course: Pt states he is feeling better and going to olive picker his prescriptions right kb now. 07/27 14:20 Order name: SARS-COV-2 Antigen Rapid; Complete Time: 14:57 kb 07/27 13:30 Order name: Chest Single View XRAY; Complete Time: 14:27 kb Administered Medications: 13:50 Drug: MethylPREDNISolone Sodium Succinate IM 125 mg IM once Route: IM; Site: right bp deltoid; 14:40 Follow up: Response: No adverse reaction bp 13:50 Drug: Albuterol Inhalation 2.5 mg Inhalation once Route: Inhalation; bp 13:50 Drug: Ipratropium Inhalation Aerosol 0.5 mg Inhalation once Route: Inhalation; bp Disposition Summary: 07/27/23 15:03 Discharge Ordered Notes: Location: Home kb Condition: Stable kb Diagnosis - COPD/ Chronic obstructive pulmonary disease with (acute) exacerbation kb Followup: kb - With: Emergency Department - When: As needed - Reason: Worsening of condition Followup: kb - With: Private Physician - When: 2 - 3 days - Reason: Recheck today's complaints, Continuance of care, Re-evaluation by your physician Discharge Instructions: - Discharge Summary Sheet kb - Chronic Obstructive Pulmonary Disease Exacerbation kb Forms: - Medication Reconciliation Form kb - Thank You Letter kb - Antibiotic Education kb - Prescription Opioid Use kb - Patient Portal Instructions kb - Leadership Thank You Letter kb Signatures: Dispatcher [employer] Elisa Morales, PARKING ENFORCEMENT MANAGER-C PARKING ENFORCEMENT MANAGER-Tian Dunbar, RN RN bp Danya Degroot, RN RN nj1
[2023-07-27 15:39] VITALS: BP 148/77; TEMP 98.5; O2SAT 94
== END ==
LOC: ER 13:16
DX: J44.1 Chronic obstructive pulmonary disease with (acute) exacerbation (principal); I10 Essential (primary) hypertension; Z11.52 Encounter for screening for COVID-19; Z28.310 Unvaccinated for COVID-19; Z85.850 Personal history of malignant neoplasm of thyroid
CPT/HCPCS: 36415; 71045; 96372; 99284; 87811; J7613; J7644; J2930

== ENCOUNTER → 2023-08-27 | Emergency (ER) | payer OTHER ==
--- OUTSIDE RECORDS SUMMARY | 2023-08-27 14:18 | XMS REPORT | Continuity of Care Document ---
Author Name Unknown Address [address] [place] [address] [address] th[address] Address [address] [facility]. [address] [place] [address] Care Team Providers Care Metal Framer Name Role Phone PHIL TRACIE Attending Clinician Unavailable NICKO AGARWAL Attending Clinician Unavail able JUSTIN CAPUTO Attending Clinician Unavailab GINGER Harvey Attending Clinician Unavailable GIOVANA VAIL Attending Clinician Unavailable Payers Payer Name Policy Type Policy Number Effective Date Expirati on Date Source AETNA MP [facility] SILVER 5 O ACUTE COORDINATOR 94 ON 9 [id number] 2023-07-11 00:00:00 Problems Condition Name Condition Details Condition [...] Social function 2023-07-23 00:00:00 2023-07-23 00:00:00 Jessica Beatty Sex Ass[birth year] At 1960 00:00:00 1960 00:00:00 Jessica Beatty Smoking Status Start Date Stop Date Source Ex-smoker 2023-07-23 00:00:00 2023-07-23 00:00:00 Majo Aguirre External Medications Ordered Medication Name Filled Medication Name [...] MG oral Tablet 07-23 00:00: 00 Yes [id number] 10mg Take 1 tablet (10 mg total) by mouth daily. Jessica trejo Budesonide- Formoterol Fumarate (Symbicort) 160-4.5 MCG/ACT inhalation Aerosol 07-23 00:00: 00 Yes [id number] 2{puff} Inhale 2 puffs into the lungs [...] Name Observation Time Observation Value Comments S ource Systolic blood pressure 2023-07-23 19:56:00 154 mm[Hg] Jessica grewal - External Diastolic blood pressure 2023-07-23 19:56:00 88 mm[Hg] Jessica Seybo ld - External Heart rate 2023-07-23 19:50:00 78 /min Melody Cavanaughold - External Body temperature 2023-07-23 19:50:00 36.61 Sandi Jessica Cherry - External Respiratory rate 2023-07-23 19:50:00 18 /min Jessica Cherry - External Body height 2023-07-23 19:50:00 185.4 cm Maritza castillo Seybold - External Body weight 2023-07-23 19:50:00 55.963 kg Maritza castillo Seybold - External BMI 2023-07-23 19:50:00 16.28 kg/m2 Maritza castillo Seybold - External Oxygen saturation in Arterial blood by Pulse oximetry 2023-07-23 19:50:00 98 /min Jessica Murillowilliam ld - External Encounters Start Date/Time End Date/Time Encounter Type Admission Type Attending [facility] Care Department Encounter ID Source 2023-08-30 10:00:00 2023-08-30 10:00:00 Outpatient TRACIE VILLARREAL [id number] Jessica Seybramila 2023-08-15 00:00:00 2023-08-15 00:00:00 Outpatient NICKO AGARWAL [id number] Jessica Seybramila 2023-08-14 09:30:00 2023-08-14 09:30:00 Outpatient JUSTIN CAPUTO [id number] Jessica Seybramila 2023-08-12 13:00:00 2023-08-12 13:00:00 Outpatient JESSICA WARD [id number] Jessica Seybramila 2023-08-08 00:00:00 2023-08-08 00:00:00 Outpatient GINGER NORTH [id number] Jessica Seybramila 2023-08-01 10:00:00 2023-08-01 10:00:00 Outpatient GIOVANA VAIL [id number] Jessica Seybramila 2023-07-31 00:00:00 2023-07-31 00:00:00 Outpatient [facility] [id number] [facility] 2023-07-30 00:00:00 2023-07-30 00:00:00 Outpatient G[facility] JESSICA WARD [id number] Jessica Cherry 2023-07-23 14:30:00 2023-07-23 14:30:00 Outpatient JUSTIN CAPUTO JESSICA WARD [id number] [facility] Notes Date/Time Note Provider Source 2023-07-23 13:56:04 [id number] /[id number] T13:56:04 Chief ComplaintPatient presents withNew PatientEstablish CareWants to follow up on COPDPaula Dave Holtectronically signed by Keesha Pimentel LVN at 07/23/2023 1:57 PM [id number]:57:57Nurse [id number] for patient [id number] NoteLNNARRATIVEFormatted C-CDA narrative textKELSOUTHWESTERN MEDICAL CENTER – LAWTONMAURISIOWVUMedicine [facility] [facility] [id number] [id number] [facility]"
--- NOTE | 2023-08-27 15:56 | ER ---
Nurse's Notes [facility] Name: [place] Hardin Age: 62 yrs Sex: Male : 1960 Arrival Date: 08/27/2023 Time: 14:16 Bed IW5 Private MD: Diagnosis: Impacted cerumen, left ear Presentation: 08/26 14:42 Chief complaint: Patient states: he has been having left ear clogging feeling for 2 ap3 days. Coronavirus screen: At this time, the client does not indicate any symptoms associated with coronavirus-19. Ebola Screen: No symptoms or risks identified at this time. Initial Sepsis Screen: Does the patient meet any 2 criteria? No. Patient's initial sepsis screen is negative. Does the patient have a suspected source of infection? No. Patient's initial sepsis screen is negative. Risk Assessment: Do you want to hurt yourself or someone else? Patient reports no desire to harm self or others. Onset of symptoms was August 25, 2023. 14:42 Method Of Arrival: Ambulatory ap3 14:42 Acuity: ANTONINO 4 ap3 Triage Assessment: 14:44 General: Appears in no apparent distress. Behavior is calm, cooperative, appropriate ap3 for age. Pain: Denies pain. EENT: Reports clogged feeling in left ear. Historical: - Allergies: 14:43 NKA; ap3 - PMHx: 14:43 GERD; Chronic obstructive lung disease; Hypertension; Kidney Mass; Lung mass; Gout; ap3 THYROID CANCER; - Immunization history:: Client reports receiving the 2nd dose of the Covid vaccine. - Social history:: Smoking status: Patient denies any tobacco usage or history of. Screenin:44 Abuse screen: Denies threats or abuse. Nutritional screening: No deficits noted. ap3 Tuberculosis screening: No symptoms or risk factors identified. 15:05 [facility] ED Fall Risk Assessment (Adult) History of falling in the last 3 months, ap3 including since admission No falls in past 3 months (0 pts) Confusion or Disorientation No (0 pts) Intoxicated or Sedated No (0 pts) Impaired Gait No (0 pts) Mobility Assist Device Used No (0 pt) Altered Elimination No (0 pt) Score/Fall Risk Level 0 - 2 = Low Risk Oriented to surroundings, Maintained a safe environment, Educated pt \T\ family on fall prevention, incl call for assistance when getting out of bed, Assessed \T\ reinforced patient's understanding of fall precautions, Provided non-skid footwear, Hourly rounding (assess needs \T\ fall precautionary measures) done, Used ambulatory aids as needed (educated on \T\ assisted with), Used gait belt as appropriate. Vital Signs: 14:42 Pulse 69; Resp 17; Temp 98.1; Pulse Ox 100% ; Weight 54.43 kg; Height 6 ft. 1 in. ; ap3 14:42 BP 124 / 78; ap3 14:42 Body Mass Index 15.83 (54.43 kg, 185.42 cm) ap3 ED Course: 14:19 Patient arrived in ED. im 14:19 Elisa Bull FNP-C is [facility]. kb 14:19 Thomas Nunes MD is Attending Physician. kb 14:43 Triage completed. ap3 14:44 Arm band placed on left wrist. ap3 15:05 Provided Education on: DISCHARGE INSTRUCTIONS. ap3 15:05 No provider procedures requiring assistance completed. Patient did not have IV access ap3 during this emergency room visit. 15:06 Patient has correct armband on for positive identification. ap3 Administered Medications: No medications were administered Medication: 15:06 VIS not applicable for this client. ap3 Outcome: 14:44 Discharge ordered by . kb 15:05 Discharged to home ambulatory, ap3 15:05 Condition: good 15:05 Discharge instructions given to patient, Instructed on discharge instructions, follow up and referral plans. Demonstrated understanding of instructions, follow-up care, 15:06 Patient left the ED. ap3 Signatures: Elisa Bull FNP-C FNP-Ckb Prokisch, Amanda RN RN ap3 Miranda Carr im
--- NOTE | 2023-08-27 15:56 | EDPHYS ---
Physician Documentation [facility] Name: [place] Hardin Age: 62 yrs Sex: Male : 1960 Arrival Date: 08/27/2023 Time: 14:16 Bed IW5 Private MD: ED Physician Thomas Nunes HPI: 08/26 14:42 This 62 yrs old Male presents to ER via Unassigned with complaints of Ear kb problem. 14:42 Patient is a 62-year-old male who presents for decreased hearing and clogged feeling in kb left ear. States it started 2 weeks ago and got worse over the last 3 days. Denies pain, fever. Historical: - Allergies: 14:43 NKA; ap3 - PMHx: 14:43 GERD; Chronic obstructive lung disease; Hypertension; Kidney Mass; Lung mass; Gout; ap3 THYROID CANCER; - Immunization history:: Client reports receiving the 2nd dose of the Covid vaccine. - Social history:: Smoking status: Patient denies any tobacco usage or history of. ROS: 14:42 Constitutional: As per HPI kb Exam: 14:42 Constitutional: This is a well developed, well nourished patient who is awake, alert, kb and in no acute distress. Cardiovascular: Regular rate Respiratory: Respirations even and unlabored. No increased work of breathing. Talking in full sentences Skin: Warm, dry with normal turgor. Normal color. MS/ Extremity: Pulses equal, no cyanosis. Neurovascular intact. Full, normal range of motion. Neuro: Awake and alert, GCS 15, oriented to person, place, time, and situation. Moves all extremities. Normal gait. 14:42 ENT: Ear canal(s): cerumen impaction, that is moderate, that is loose, occluding the left ear canal, Vital Signs: 14:42 Pulse 69; Resp 17; Temp 98.1; Pulse Ox 100% ; Weight 54.43 kg; Height 6 ft. 1 in. ; ap3 14:42 BP 124 / 78; ap3 14:42 Body Mass Index 15.83 (54.43 kg, 185.42 cm) ap3 MDM: 14:19 Patient medically screened. kb 14:43 Differential diagnosis: otitis media, otitis externa, ruptured TM, foreign body, acute kb otalgia, cerumen impaction. Data reviewed: vital signs, nurses notes. Counseling: I had a detailed discussion with the patient and/or guardian regarding the historical points, exam findings, and any diagnostic results supporting the discharge/admit diagnosis, the need for outpatient follow up, an ENT specialist, to return to the emergency department if symptoms worsen or persist or if there are any questions or concerns that arise at home. ED course: Removed moderate amount of wax with curette from left ear canal. Patient reports improvement of symptoms. Educated to follow-up with ENT. Verbal understanding received.. Administered Medications: No medications were administered Disposition: 17:38 Co-signature as Attending Physician, Thomas Nunes MD I reviewed the patient's care rn provided by the Advanced Practice Provider and agree with the diagnosis and treatment plan. Disposition Summary: 08/27/23 14:44 Discharge Ordered Notes: Location: Home Condition: Stable kb Diagnosis - Impacted cerumen, left ear kb Followup: kb - With: Emergency Department - When: As needed - Reason: Worsening of condition Followup: kb - With: Private Physician - When: 2 - 3 days - Reason: Recheck today's complaints, Continuance of care, Re-evaluation by your physician Discharge Instructions: - Discharge Summary Sheet kb - Earwax Buildup, Adult kb Forms: - Medication Reconciliation Form kb - Thank You Letter kb - Antibiotic Education kb - Prescription Opioid Use kb - Patient Portal Instructions kb - Leadership Thank You Letter kb Signatures: Elisa Bull FNP-C BRANDO-Thomas Scherer MD MD rn Prokisch, Amanda, RN RN ap3
[2023-08-27 17:19] VITALS: BP 124/78; TEMP 98.1; O2SAT 100
== END ==
LOC: ER 14:16
DX: H61.22 Impacted cerumen, left ear (principal)

== ENCOUNTER 2024-02-24 15:28 | Emergency (ER) | payer OTHER ==
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
--- NOTE | 2024-02-24 16:21 | ER ---
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 Coronavirus screen: Client denies travel out of the [place] in the last 14 days. Ebola Screen: Patient denies travel to an Ebola-affected area in the 21 days before illness onset. No symptoms or risks identified at this time. Initial Sepsis Screen: Does the patient meet any 2 criteria? No. Patient's initial sepsis screen is negative. Does the patient have a suspected source of infection? No. Patient's initial sepsis screen is negative. Risk Assessment: Do you want to hurt yourself or someone else? Patient reports no desire to harm self or others. Onset of symptoms was February 24, 2024. 15:53 Method Of Arrival: Ambulatory cm10 15:53 Acuity: ANTONINO 3 cm10 Triage Assessment: 15:55 General: Appears in no apparent distress. comfortable, Behavior is calm, cooperative. cm10 Neuro: No deficits noted. Level of Consciousness is awake, alert, obeys commands, Oriented to person, place, time, situation, Appropriate for age. Derm: Wound noted back, right arm, left arm, right leg and left leg. Musculoskeletal: No deficits noted. Range of motion: intact in all extremities. Historical: - Allergies: 15:54 NKA; cm10 - PMHx: 15:54 GERD; Chronic obstructive lung disease; Gout; Hypertension; Kidney Mass; Lung mass; cm10 THYROID CANCER; - PSHx: 15:54 Appendectomy; cm10 - Immunization history:: Adult Immunizations up to date. - Infectious Disease History:: Denies. - Social history:: Smoking status: Patient denies any tobacco usage or history of. Patient uses alcohol, on a daily basis. - Family history:: not pertinent. - Hospitalizations: : No recent hospitalization is reported. Screenin:55 [facility] ED Fall Risk Assessment (Adult) History of falling in the last 3 months, cm10 including since admission No falls in past 3 months (0 pts) Confusion or Disorientation No (0 pts) Intoxicated or Sedated No (0 pts) Impaired Gait No (0 pts) Mobility Assist Device Used No (0 pt) Altered Elimination No (0 pt) Score/Fall Risk Level 0 - 2 = Low Risk Oriented to surroundings, Maintained a safe environment, Hourly rounding (assess needs \T\ fall precautionary measures) done. Abuse screen: Denies threats or abuse. Denies injuries from another. Nutritional screening: No deficits noted. Tuberculosis screening: No symptoms or risk factors identified. 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 Pain: Denies pain. Neuro: Level of Consciousness is awake, alert, obeys commands, Oriented to person, place, time, situation, Appropriate for age. Cardiovascular: Patient's skin is warm and dry. Respiratory: Airway is patent Respiratory effort is even, unlabored, Respiratory pattern is regular, symmetrical. GI: No signs and/or symptoms were reported involving the gastrointestinal system. : No signs and/or symptoms were reported regarding the genitourinary system. EENT: No signs and/or symptoms were reported regarding the EENT system. Derm: Wound noted left leg and right leg and left arm and right arm and back. Musculoskeletal: No signs and/or symptoms reported regarding the musculoskeletal system. Vital Signs: 15:53 BP 122 / 94; Pulse 72; Resp 16; Temp 97.2; Pulse Ox 98% on R/A; Weight 52.16 kg; Height cm10 6 ft. 1 in. ; Pain 10/10; 16:44 BP 118 / 87; Pulse 76; Resp 16; Temp 98.1; Pulse Ox 99% ; me1 15:53 Body Mass Index 15.17 (52.16 kg, 185.42 cm) cm10 15:53 Pain Scale: Adult cm10 ED Course: 15:34 Patient arrived in ED. ra3 15:35 Thomas Nunes MD is Attending Physician. rn 15:54 Triage completed. cm10 15:55 Arm band placed on Patient placed in waiting room. cm10 15:56 Patient has correct armband on for positive identification. Provided Education on: ER cm10 process and procedures,. Cardiac monitoring not applicable on this patient. 15:56 No provider procedures requiring assistance completed. Patient did not have IV access cm10 during this emergency room visit. 16:22 Lanny Seymour, RN is Primary Nurse. me1 Administered Medications: 16:27 Drug: Trimethoprim-Sulfamethoxazole PO (160 mg-800 mg (DS) 1 tablet PO once Route: PO; me1 16:44 Follow up: Response: No adverse reaction me1 16:27 Drug: Doxycycline PO 100 mg PO once Route: PO; me1 16:44 Follow up: Response: No adverse reaction me1 Medication: 15:55 VIS not applicable for this client. cm10 Outcome: 16:21 Discharge ordered by . rn 16:45 [facility]charged to home ambulatory[facility] 16:45 Condition: stable 16:45 Discharge instructions given to patient, Instructed on discharge instructions, follow up and referral plans. medication usage, Demonstrated understanding of instructions, follow-up care, medications, Prescriptions given X 2, 16:45 Patient left the ED. 

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
[2024-02-24] MEDS ORDERED: DOXYCYCLINE 100 MG CAP PO ONE (16:25)
[2024-02-24] MEDS ORDERED: SMZ./TMP. 800/160 MG TABLET ONE (16:25)
[2024-02-24 17:14] VITALS: BP 118/87; TEMP 98.1; O2SAT 99
== END 2024-02-24 16:45 | disposition home or self-care (01) ==
LOC: ER 15:28
DX: L03.818 Cellulitis of other sites (principal)
CPT/HCPCS: 99283